=== PATIENT | male | born 1935 | race Caucasian/White ===

== ENCOUNTER 2016-08-20 13:57 | Emergency (ER) | payer MEDICARE, BC ==
[2016-08-20] MEDS ORDERED: Clindamycin CAP* 150 MG PO ONE (15:23)
[2016-08-20 16:36] VITALS: BP 138/78
--- NOTE | 2016-08-20 17:28 | ED ---
Vinnie Nazario Auryana, scribed for Noel Mcdonnell MD on 08/20/16 at 1430 . Skin Complaint - HPI Summary HPI Summary: 81 year old male comes to the ED with a back abscess. Patient currently lives at [facility]- per nurse and [facility] staff-patient has a known skin tear on the left forearm that has been dressed. He is currently on Xarelto. PMHx is significant for dementia. - History of Current Complaint Chief Complaint: EDRashSkinAbscess Time Seen by Provider: 08/20/16 14:12 Stated Complaint: ABSCESS LEFT UPPER BACK , ARM INJURY Hx Obtained From: EMS, Medical Records Hx From Patient Unobtainable Due To: Dementia Onset/Duration: Still Present - unknown start date Pain Intensity: 0 Pain Scale Used: 0-10 Numeric Skin Location: Discrete - over left scapula Character: Redness - Allergy/Home Medications Allergies/Adverse Reactions: Allergies Allergy/AdvReac Type Severity Reaction Status Date / Time No Known Allergies Allergy Verified 08/20/16 13:59 Home Medications: Home Medications Rivaroxaban TAB(*) [Xarelto 15 mg(*)] 15 mg PO DAILY 08/20/16 [History Confirmed 08/20/16] PMH/Surg Hx/FS Hx/Imm Hx Endocrine/Hematology History: Reports: Hx Anticoagulant Therapy Denies: Hx Diabetes, Hx Thyroid Disease Cardiovascular History: Reports: Hx Hypertension Denies: Hx Pacemaker/ICD Respiratory History: Denies: Hx Asthma, Hx Chronic Obstructive Pulmonary Disease (COPD), Hx Lung Cancer GI History: Reports: Other GI Disorders - HX BOWEL RESECTION Denies: Hx Gall Bladder Disease, Hx Gastrointestinal Bleed, Hx Ulcer, Hx Urosepsis History: Reports: Hx Benign Prostatic Hyperplasia Denies: Hx Kidney Stones, Hx Renal Disease Sensory History: Denies: Hx Hearing Aid Neurological History: 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 APPENDICITIS/APPENDECTOMY - Immunization History Date of Tetanus Vaccine: 2011 Infectious Disease History: Denies: Hx Hepatitis, Hx Human Immunodeficiency Virus (HIV), Traveled Outside the [place] in Last 30 Days - Family History Known Family History: Positive: Other - Dementia - Social History Occupation: Retired [facility] Alcohol Use: None Hx Substance Use: No Substance Use Type: Reports: None Hx Tobacco Use: Yes Smoking Status (MU): Former Smoker Review of Systems - ROS Summary Review of Systems Summary: patient has dementia - unable to get complete ROS Negative: Chest Pain Negative: Shortness Of Breath Positive: Other - back abscess, skin tear All Other Systems Reviewed And Are Negative: No Physical Exam - Summary Physical Exam Summary: The patient is well-nourished in no acute distress and in no acute pain. The skin is warm and dry and skin color reflects adequate perfusion. Abscess over the left scapula- [id number], fluctuant with erythema and warmth. Left forearm skin tear. HEENT: The head is normocephalic and atraumatic. The pupils are equal and reactive. The conjunctivae are clear and without drainage. Nares are patent and without drainage. Patient not cooperative to look in mouth. The external ears are intact. The ear canals are patent and without drainage. The tympanic membranes are intact. Neck is supple with full range of motion and non-tender. There are no carotid bruits. There is no neck vein distension. Respiratory: Chest is non-tender. Not cooperative to listen to lungs. Cardiovascular: Hear is regular rate and rhythm. There is no murmur or rub auscultated. There is no peripheral edema and pulses are symmetrical and equal. Abdomen: The abdomen is soft and non-tender. There are normal bowel sounds heard in all four quadrants and there is no organomegaly palpated. Musculoskeletal: There is no back pain noted. Extremities are non-tender with full range of motion. There is good capillary refill. There is no peripheral edema or calf tenderness elicited. Neurological: Patient is alert and oriented to person, place and time. The patient has symmetrical motor strength in all four extremities. Cranial nerves are grossly intact. Deep tendon reflexes are symmetrical and equal in all four extremities. Psychiatric: The patient has an appropriate affect and does not exhibit any anxiety or depression. Triage Information Reviewed: Yes Vital Signs On Initial Exam: Initial Vitals Temp Pulse Resp BP Pulse Ox 98.3 F 97 20 117/58 97 08/20/16 13:59 08/20/16 13:59 08/20/16 13:59 08/20/16 13:59 08/20/16 13:59 Vital Signs Reviewed: Yes Procedures - Procedure Summary Procedure Summary: 2 cm incision vertical over abscess 45 cc purulent debris removed wound irrigated with 300 cc nml saline iodiform gauze- inch; dressing placed and cultures sent - Incision and Drainage Site: left scapula Anesthesia: Lidocaine - 2% wiht Epi - 7cc- , Other - betadine prep Instrument(s): Needle Packing: Gauze - iodoform- 1/2 inch Diagnostics - Vital Signs Vital Signs Temp Pulse Resp BP Pulse Ox 08/20/16 13:59 98.3 F 97 20 117/58 97 - Laboratory Lab Statement: Any lab studies that have been ordered have been reviewed, and results considered in the medical decision making process. Re-Evaluation - Re-Evaluation first Re-Evaluation Time: 14:43 - discussed need to I&D Change: Unchanged Comment: patient agrees to procedure. Course/Dx - Course Assessment/Plan: 81 y/o male comes from [facility] with a left scapula abscess. Site is erythematic, fluctuant, and warm. Patient also had a dressed left forearm skin tear- placed by [facility]. I&D of infected left scapula abscess. 2cm incision with gauze packing, cultures sent and dressing in place. Appears infected - given dose of Clindamycin in ED. Discharged to [facility] on clindamycin. - Differential Diagnoses - Skin Complaint Differential Diagnoses: Abscess, Cellulitis, Other - infected sebaceous cyst - Diagnoses Provider Diagnoses: Infected sebaceous cyst of skin, Encounter for incision and drainage procedure - Physician Notifications Discussed Care Of Patient With: Discussed patient with , Sahra Mcknight (14: 38). number: [phone] Time Discussed With Above Provider: 14:38 - given permission to open infected cyst- stated that patient has had this for a long time but now infected. Discharge - Discharge Plan Condition: Stable Disposition: [facility] Discharge Disposition Comment: keep dressing in place for 24 hours and remove after. clinamycin 300mg x3 Prescriptions: Clindamycin Cap(NF) [Cleocin 300 mg Cap(NF)] 300 mg PO TID #21 cap Patient Education Materials: Abscess (ED), Clindamycin (By mouth) Additional Instructions: [facility]. The documentation as recorded by the Vinnie vela Auryana accurately reflects the service I personally performed and the decisions made by , Noel Mcdonnell MD.
== END 2016-08-20 16:35 ==
LOC: ED 13:57
DX: L72.9 Follicular cyst of the skin and subcutaneous tissue, unspecified (principal)
CPT/HCPCS: 87070; 87076; 87205; 87640; 87641; 99282; A9270-GY

== ENCOUNTER 2016-11-12 17:14 | Emergency (ER) | payer MEDICARE, BC ==
[2016-11-12 18:20] LABS: Hematocrit 42 % (42-52); Hemoglobin 13.9 g/dl (14.0-18.0); Mean Corpuscular HGB Conc 33 g/dl (31-36); Mean Corpuscular Hemoglobin 33 pg (27-31); Mean Corpuscular Volume 98 fL (80-94); Mean Platelet Volume 8 um3 (7.4-10.4); Red Blood Count 4.27 10^6/ul (4.0-5.4); Red Cell Distribution Width 13 % (10.5-15); White Blood Count 9.5 10^3/ul (3.5-10.8)
--- NOTE | 2016-11-12 18:28 | RAD ---
Indication: Fever. Atrial fibrillation. Comparison: January 15, 2015 Technique: Upright AP 1816 hours Report: Clear lungs and pleural spaces. Negative for pneumothorax. Mild cardiomegaly. Unremarkable central pulmonary vasculature. Mildly tortuous thoracic aorta. Advanced arthropathy of the shoulders. IMPRESSION: Mild cardiomegaly without evidence for pulmonary edema. Based on correlation with the previous exam there is probable chronic obstructive pulmonary disease and emphysema. No evidence for pneumonia.
[2016-11-12 18:35] LABS: Albumin 3.3 g/dL (3.2-5.2); BUN/Creatinine Ratio 14.3 (8-20); EGFR African American 75.3 (>60); EGFR Non-African American 58.5 (>60); Globulin 3.7 g/dL (2-4); Potassium 3.7 mmol/L (3.5-5.0); Total Bilirubin 0.5 mg/dL (0.2-1.0); Troponin I 0.01 ng/mL (<0.04)
[2016-11-12 18:40] LABS: Urine Bacteria Absent (Absent); Urine Bilirubin Negative (Negative); Urine Glucose Negative (Negative); Urine Nitrite Negative (Negative)
[2016-11-12] MEDS ORDERED: NS 0.9% 1000 ML* 2,400 ML IV ONE (18:40)
--- NOTE | 2016-11-12 20:04 | ED ---
I, Oh,Soohyun, scribed for Melba Triplett MD on 11/12/16 at 1816 . Altered Mental Status - HPI Summary HPI Summary: LEVEL 5 CAVEAT secondary to dementia. DNR code. This 81 y/o male presents to ED from [facility] for AMS and increased lethargic today. PMHx includes afib, Alzheimer's dz, and HTN. Pt is noted largely immobile while getting to ED bed. Pt is noted with smell of urine at time of initial evaluation. He appears alert but disoriented when asked questions regarding place. - History Of Current Complaint Chief Complaint: EDAltMentalStatus Stated Complaint: A FIB Time Seen by Provider: 11/12/16 17:33 Hx Obtained From: Patient, Medical Records Hx From Patient Unobtainable Due To: Dementia Timing: Constant Character: Lethargy Aggravating Factor(s): Nothing Alleviating Factor(s): Nothing Associated Signs And Symptoms: Negative: Fever - Allergies/Home Medications Allergies/Adverse Reactions: Allergies Allergy/AdvReac Type Severity Reaction Status Date / Time No Known Allergies Allergy Verified 11/12/16 17:19 Home Medications: Home Medications Acetaminophen [Tylenol 8 Hour Arthritis] 650 mg PO QAM 11/12/16 [History Confirmed 11/12/16] FLUoxetine CAP* [PROzac CAP*] 20 mg PO QAM 11/12/16 [History Confirmed 11/12/16] Metoprolol Tartrate TAB* [Lopressor TAB*] 25 mg PO 0900,2100 11/12/16 [History Confirmed 11/12/16] Risperidone 0.25 mg PO BID 11/12/16 [History Confirmed 11/12/16] Rivastigmine PATCH 4.6 MG(NF) [Exelon(NF)] 4.6 mg TOPICAL QAM 11/12/16 [History Confirmed 11/12/16] PMH/Surg Hx/FS Hx/Imm Hx Endocrine/Hematology History: Reports: Hx Anticoagulant Therapy Denies: Hx Diabetes, Hx Thyroid Disease Cardiovascular History: Reports: Hx Hypertension Denies: Hx Pacemaker/ICD Respiratory History: Denies: Hx Asthma, Hx Chronic Obstructive Pulmonary Disease (COPD), Hx Lung Cancer GI History: Reports: Other GI Disorders - HX BOWEL RESECTION Denies: Hx Gall Bladder Disease, Hx Gastrointestinal Bleed, Hx Ulcer, Hx Urosepsis History: Reports: Hx Benign Prostatic Hyperplasia Denies: Hx Kidney Stones, Hx Renal Disease Sensory History: Denies: Hx Hearing Aid Neurological History: 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 APPENDICITIS/APPENDECTOMY - Immunization History Date of Tetanus Vaccine: 2011 Infectious Disease History: No Infectious Disease History: Denies: Hx Hepatitis, Hx Human Immunodeficiency Virus (HIV), Traveled Outside the [place] in Last 30 Days - Family History Known Family History: Positive: Other - Dementia - Social History Alcohol Use: None Hx Substance Use: No Substance Use Type: Reports: None Hx Tobacco Use: Yes Smoking Status (MU): Former Smoker Review of Systems - ROS Summary Review of Systems Summary: LEVEL 5 CAVEAT secondary to dementia and AMS Negative: Fever Positive: other - smell of urine All Other Systems Reviewed And Are Negative: No Physical Exam Triage Information Reviewed: Yes Vital Signs On Initial Exam: Initial Vitals Temp Pulse Resp BP Pulse Ox 99.2 F 61 15 145/104 98 11/12/16 17:17 11/12/16 17:17 11/12/16 17:17 11/12/16 17:17 11/12/16 17:17 Vital Signs Reviewed: Yes Appearance: Positive: Well-Appearing, No Pain Distress Skin: Positive: Warm, Skin Color Reflects Adequate Perfusion, Dry Eyes: Positive: EOMI, BRIGIDA Neck: Positive: Supple, Nontender Respiratory/Lung Sounds: Positive: Clear to Auscultation, Breath Sounds Present Cardiovascular: Positive: RRR, Pulses are Symmetrical in both Upper and Lower Extremities Abdomen Description: Positive: Nontender, Soft Musculoskeletal: Positive: Strength/ROM Intact Neurological: Positive: Cerebellar Dysfunction - place, Disoriented AVPU Assessment: Alert Diagnostics - Vital Signs Vital Signs Temp Pulse Resp BP Pulse Ox 11/12/16 17:17 99.2 F 61 15 145/104 98 - Laboratory Lab Results: Lab Results 11/12/16 11/12/16 11/12/16 Range/Units 17:53 17:53 17:53 WBC 9.5 (3.5-10.8) 10^3/ul RBC 4.27 (4.0-5.4) 10^6/ul Hgb 13.9 L (14.0-18.0) g/dl Hct 42 (42-52) % MCV 98 H (80-94) fL MCH 33 H (27-31) pg MCHC 33 (31-36) g/dl RDW 13 (10.5-15) % Plt Count 330 (150-450) 10^3/ul MPV 8 (7.4-10.4) um3 Neut % (Auto) 71.9 (38-83) % Lymph % (Auto) 12.7 L (25-47) % Mesa % (Auto) 13.1 H (1-9) % Eos % (Auto) 1.6 (0-6) % Baso % (Auto) 0.7 (0-2) % Absolute Neuts (auto) 6.8 (1.5-7.7) 10^3/ul Absolute Lymphs (auto) 1.2 (1.0-4.8) 10^3/ul Absolute Monos (auto) 1.2 H (0-0.8) 10^3/ul Absolute Eos (auto) 0.1 (0-0.6) 10^3/ul Absolute Basos (auto) 0.1 (0-0.2) 10^3/ul Absolute Nucleated RBC 0 10^3/ul Nucleated RBC % 0 INR (Anticoag Therapy) 1.22 H (0.89-1.11) APTT 30.4 (26.0-36.3) seconds Sodium 136 (133-145) mmol/L Potassium 3.7 (3.5-5.0) mmol/L Chloride 102 (101-111) mmol/L Carbon Dioxide 30 (22-32) mmol/L Anion Gap 4 (2-11) mmol/L BUN 17 (6-24) mg/dL Creatinine 1.19 H (0.67-1.17) mg/dL Est GFR ( Amer) 75.3 (>60) Est GFR (Non-Af Amer) 58.5 (>60) BUN/Creatinine Ratio 14.3 (8-20) Glucose 132 H (70-100) mg/dL Lactic Acid (0.5-2.0) mmol/L Calcium 9.0 (8.6-10.3) mg/dL Total Bilirubin 0.50 (0.2-1.0) mg/dL AST 15 (13-39) U/L ALT 13 (7-52) U/L Alkaline Phosphatase 45 (34-104) U/L Troponin I 0.01 (<0.04) ng/mL Total Protein 7.0 (6.4-8.9) g/dL Albumin 3.3 (3.2-5.2) g/dL Globulin 3.7 (2-4) g/dL Albumin/Globulin Ratio 0.9 L (1-3) Urine Color Urine Appearance Urine pH (5-9) Ur Specific [place] (1.010-1.030) Urine Protein (Negative) Urine Ketones (Negative) Urine Blood (Negative) Urine Nitrate (Negative) Urine Bilirubin (Negative) Urine Urobilinogen (Negative) Ur Leukocyte Esterase (Negative) Urine WBC (Auto) (Absent) Urine RBC (Auto) (Absent) Ur Squamous Epith Cells (Absent) Urine Bacteria (Absent) Hyaline Casts (Absent) Urine Glucose (Negative) 11/12/16 11/12/16 Range/Units 17:53 18:25 WBC (3.5-10.8) 10^3/ul RBC (4.0-5.4) 10^6/ul Hgb (14.0-18.0) g/dl Hct (42-52) % MCV (80-94) fL MCH (27-31) pg MCHC (31-36) g/dl RDW (10.5-15) % Plt Count (150-450) 10^3/ul MPV (7.4-10.4) um3 Neut % (Auto) (38-83) % Lymph % (Auto) (25-47) % Mes[place] % (Auto) (1-9) % Eos % (Auto) (0-6) % Baso % (Auto) (0-2) % Absolute Neuts (auto) (1.5-7.7) 10^3/ul Absolute Lymphs (auto) (1.0-4.8) 10^3/ul Absolute Monos (auto) (0-0.8) 10^3/ul Absolute Eos (auto) (0-0.6) 10^3/ul Absolute Basos (auto) (0-0.2) 10^3/ul Absolute Nucleated RBC 10^3/ul Nucleated RBC % INR (Anticoag Therapy) (0.89-1.11) APTT (26.0-36.3) seconds Sodium (133-145) mmol/L Potassium (3.5-5.0) mmol/L Chloride (101-111) mmol/L Carbon Dioxide (22-32) mmol/L Anion Gap (2-11) mmol/L BUN (6-24) mg/dL Creatinine (0.67-1.17) mg/dL Est GFR ( Amer) (>60) Est GFR (Non-Af Amer) (>60) BUN/Creatinine Ratio (8-20) Glucose (70-100) mg/dL Lactic Acid 1.4 (0.5-2.0) mmol/L Calcium (8.6-10.3) mg/dL Total Bilirubin (0.2-1.0) mg/dL AST (13-39) U/L ALT (7-52) U/L Alkaline Phosphatase (34-104) U/L Troponin I (<0.04) ng/mL Total Protein (6.4-8.9) g/dL Albumin (3.2-5.2) g/dL Globulin (2-4) g/dL Albumin/Globulin Ratio (1-3) Urine Color Yellow Urine Appearance Clear Urine pH 6.0 (5-9) Ur Specific [place] 1.025 (1.010-1.030) Urine Protein Negative (Negative) Urine Ketones Trace H (Negative) Urine Blood Negative (Negative) Urine Nitrate Negative (Negative) Urine Bilirubin Negative (Negative) Urine Urobilinogen Negative (Negative) Ur Leukocyte Esterase Trace H (Negative) Urine WBC (Auto) Trace(0-5/hpf) (Absent) Urine RBC (Auto) Absent (Absent) Ur Squamous Epith Cells Present H (Absent) Urine Bacteria Absent (Absent) Hyaline Casts Present H (Absent) Urine Glucose Negative (Negative) Result Diagrams: 11/12/16 17:53 11/12/16 17:53 Lab Statement: Any lab studies that have been ordered have been reviewed, and results considered in the medical decision making process. - Radiology CXR Xray Interpretation: Positive (See Comments) - Mild cardiomegaly without evidence for pulmonary edema. Based on correlation with the previous exam there is probable chronic obstructive pulmonary disease and emphysema. No evidence for pneumonia. Radiology Interpretation Completed By: Radiologist - EKG 1950 EKG Rhythm: Atrial Fibrillation Altered Mental Statu Course/Dx - Course Course Of Treatment: 81 yo male recently transferred to a new residential with altered mental status, nurse did talk with who felt that this was a norm for him and that at times he can agitated as well. It was initially thought he might be septic, but his heart rate normalized and labs ,cxr and urine were all neg - Diagnoses Discharge Diagnoses: Altered mental status - Provider Notifications Discussed Care Of Patient With: Mohan Naylor Time Discussed With Above Provider: 19:32 - Critical Care Time Critical Care Time: 30-74 min - 30 minutes Discharge - Discharge Plan Condition: Stable Disposition: HOME Patient Education Materials: Altered Mental Status (ED) Referrals: Kayleigh Pollack MD [Primary Care Provider] - 2 Days The documentation as recorded by the Peter vela Soohyun accurately reflects the service I personally performed and the decisions made by me, Melba Triplett MD.
[2016-11-12 21:43] VITALS: BP 130/92
== END 2016-11-12 21:43 | disposition home or self-care (01) ==
LOC: ED 17:14
DX: R41.82 Altered mental status, unspecified (principal); I10 Essential (primary) hypertension; F03.90 Unspecified dementia, unspecified severity, without behavioral disturbance, psychotic disturbance, mood disturbance, and anxiety; Z79.01 Long term (current) use of anticoagulants; Z87.891 Personal history of nicotine dependence; G30.9 Alzheimer's disease, unspecified; F02.80 Dementia in other diseases classified elsewhere, unspecified severity, without behavioral disturbance, psychotic disturbance, mood disturbance, and anxiety; I51.7 Cardiomegaly; I48.91 Unspecified atrial fibrillation
CPT/HCPCS: 36415; 71010; 80053; 81003; 81015; 83605; 84484; 85025; 85610; 85730; 87040; 87086; 93005; 99285

== ENCOUNTER 2017-09-06 11:46 | Inpatient (IN) | payer MEDICARE, BC ==
[2017-09-06] MEDS ORDERED: NS 0.9% 1000 ML* 1,000 ML IV ONE (12:07)
[2017-09-06] MEDS ORDERED: NS 0.9% 500 ML* 500 ML IV ONE (12:07)
[2017-09-06] MEDS ORDERED: cefTRIAXone(*) 1 GM in NS 0.9% 50 ML* 50 ML IVPB ONE (12:08)
[2017-09-06 12:55] LABS: Urine Appearance Clear; Urine Blood Negative (Negative); Urine Color Amber; Urine Ketones Negative (Negative); Urine Protein 1+(30 mg/dL) (Negative); Urine Specific Gravity 1.027 (1.010-1.030); Urine Urobilinogen Negative (Negative)
[2017-09-06 13:00] LABS: Hematocrit 42 % (42-52); Hemoglobin 14.2 g/dl (14.0-18.0); Mean Corpuscular HGB Conc 34 g/dl (31-36); Mean Corpuscular Hemoglobin 33 pg (27-31); Mean Corpuscular Volume 98 fL (80-94); Platelet Count 220 10^3/ul (150-450); Red Cell Distribution Width 14 % (10.5-15); White Blood Count 20.7 10^3/ul (3.5-10.8)
--- NOTE | 2017-09-06 13:02 | RAD ---
HISTORY: Altered mental status COMPARISONS: June 08, 2014 TECHNIQUE: Multiple contiguous axial CT scans were obtained of the head without intravenous contrast. FINDINGS: HEMORRHAGE/INFARCT: There is no hemorrhage or acute infarct. MASSES/SHIFT: There is no mass or shift. EXTRA-AXIAL SPACES: There are no extra-axial fluid collections. SULCI AND VENTRICLES: The sulci and ventricles are normal in size and position for the patient's stated age. CEREBRUM: There is hypoattenuation of the periventricular and subcortical white matter. BRAINSTEM: There are no focal parenchymal abnormalities. CEREBELLUM: There are no focal parenchymal abnormalities. VESSELS: The vessels are grossly normal. PARANASAL SINUSES: There is mucosal thickening of the maxillary sinuses bilaterally. ORBITS: The orbits are unremarkable. BONES AND SOFT TISSUE: No bone or soft tissue abnormalities are noted. OTHER: None IMPRESSION: NO ACUTE INTRACRANIAL PATHOLOGY. CHRONIC SMALL VESSEL ISCHEMIC CHANGE.
[2017-09-06 13:17] LABS: EGFR Non-African American 52.3 (>60)
[2017-09-06 13:22] LABS: INR 1.55 (0.77-1.02)
--- NOTE | 2017-09-06 13:53 | RAD ---
HISTORY: Altered mental status COMPARISONS: November 12, 2016 VIEWS: 1: frontal portable view of the chest at 1:20 PM FINDINGS: LINES AND TUBES: None. CARDIOMEDIASTINAL SILHOUETTE: The cardiomediastinal silhouette is stable. PLEURA: The costophrenic angles are sharp. No pleural abnormalities are noted. LUNG PARENCHYMA: The lungs are clear. ABDOMEN: The upper abdomen is clear. There is no subphrenic gas. BONES AND SOFT TISSUES: Degenerative changes noted of the shoulders and spine IMPRESSION: NO ACTIVE CARDIOPULMONARY DISEASE.
[2017-09-06 14:24] LABS: Monocytes % 7 % (0-7)
--- NOTE | 2017-09-06 14:41 | ED ---
Doug Nazario Natalie, scribed for Mark Anthony Aparicio MD on 09/06/17 at 1354 . Altered Mental Status - HPI Summary HPI Summary: The patient is an 82 y/o M presenting to the ED from [facility] c/o lethargy and inability to walk starting this morning, per [facility] staff. Usually the pt is able to ambulate independently, but he has been more lethargic, unable to walk, and hypotensive. He has hx of Alzheimer's and UTIs. Pt additionally c/o pain in the epigastrium region. - History Of Current Complaint Chief Complaint: EDAltMentalStatus Stated Complaint: AMS Hx Obtained From: Patient Onset/Duration: Still Present Timing: Constant Severity Initially: Moderate Severity Currently: Moderate Character: Lethargy Aggravating Factor(s): Unknown Alleviating Factor(s): Unknown - Allergies/Home Medications Allergies/Adverse Reactions: Allergies Allergy/AdvReac Type Severity Reaction Status Date / Time No Known Allergies Allergy Verified 11/12/16 17:19 Home Medications: Home Medications Acetaminophen [Tylenol 8 Hour] 650 mg PO QAM 09/06/17 [History Confirmed ] Cyanocobalamin TAB* [Vitamin B12 TAB*] 1,000 mcg PO DAILY 09/06/17 [History Confirmed 09/06/17] Donepezil TAB* [Aricept 5 MG TAB*] 10 mg PO DAILY 09/06/17 [History Confirmed ] risperiDONE TAB* [RisperDAL*] 0.25 mg PO QAM 09/06/17 [History Confirmed ] risperiDONE TAB* [RisperDAL*] 0.5 mg PO QPM 09/06/17 [History Confirmed 09/06/17 ] PMH/Surg Hx/FS Hx/Imm Hx Endocrine/Hematology History: Reports: Hx Anticoagulant Therapy Denies: Hx Diabetes, Hx Thyroid Disease Cardiovascular History: Reports: Hx Hypertension Denies: Hx Pacemaker/ICD Respiratory History: Denies: Hx Asthma, Hx Chronic Obstructive Pulmonary Disease (COPD), Hx Lung Cancer GI History: Reports: Other GI Disorders - HX BOWEL RESECTION Denies: Hx Gall Bladder Disease, Hx Gastrointestinal Bleed, Hx Ulcer, Hx Urosepsis History: Reports: Hx Benign Prostatic Hyperplasia Denies: Hx Kidney Stones, Hx Renal Disease Sensory History: Denies: Hx Hearing Aid Neurological History: Reports: Hx Dementia - ALZHEIMERS Denies: Hx Migraine, Hx Seizures, Hx Transient Ischemic Attacks (TIA) Psychiatric History: Denies: Hx Anxiety, Hx Depression, Hx Panic Disorder, Hx Schizophrenia, Hx Bipolar Disorder - Surgical History Surgery Procedure, Year, and Place: abd surgery - OBSTRUCTION IN BOWEL RESECTION - 3 years ago [facility] (non cancer). APPENDICITIS/APPENDECTOMY - Immunization History Date of Tetanus Vaccine: 2011 Infectious Disease History: Unable to Obtain/Confirm Infectious Disease History: Denies: Hx Hepatitis, Hx Human Immunodeficiency Virus (HIV), Traveled Outside the [place] in Last 30 Days - Family History Known Family History: Positive: Other - Dementia Family History: NON CONTRIBUTORY - Social History Alcohol Use: None Hx Substance Use: No Substance Use Type: Reports: None Hx Tobacco Use: Yes Smoking Status (MU): Former Smoker Review of Systems Positive: Other - lethargic Positive: Other - hypotensive Neurological: Other - unable to walk All Other Systems Reviewed And Are Negative: Yes Physical Exam - Summary Physical Exam Summary: Appearance: Well-appearing, Well-nourished. Somnolent, able to answer yes or no questions, responsive but clear evidence of dementia with decreased verbal ability. Skin: Warm, dry Eyes: Normal ENT: Dry mucous membranes Neck: Supple, nontender Respiratory: Clear to auscultation Cardiovascular: Normal S1, S2. No murmurs. Normal distal pulses in tibial and radial bilaterally. Irregular to regular rhythm consistent with Afib Abdomen: Soft, mild tenderness to palpation in low abdominal region Musculoskeletal: Normal, Strength/ROM Intact Neurological: Normal, A&Ox3. Decreased verbal ability. Lying still, not following commands, no obvious evidence of facial asymmetry Psychiatric: Normal General: No acute distress Triage Information Reviewed: Yes Vital Signs On Initial Exam: Initial Vitals Temp Pulse Resp BP Pulse Ox 99.2 F 90 19 86/55 97 09/06/17 11:49 09/06/17 11:49 09/06/17 11:49 09/06/17 11:49 09/06/17 11:49 Vital Signs Reviewed: Yes Diagnostics - Vital Signs Vital Signs Temp Pulse Resp BP Pulse Ox 09/06/17 13:01 13 09/06/17 12:16 96 09/06/17 12:02 89 18 96/55 95 09/06/17 12:00 89 19 96 09/06/17 11:57 95 18 96 05/18/18 11:49 99.2 F 90 19 86/55 97 - Laboratory Lab Results: Lab Results 09/06/17 09/06/17 09/06/17 Range/Units 12:32 12:46 12:46 WBC 20.7 H (3.5-10.8) 10^3/ul RBC 4.30 (4.0-5.4) 10^6/ul Hgb 14.2 (14.0-18.0) g/dl Hct 42 (42-52) % MCV 98 H (80-94) fL MCH 33 H (27-31) pg MCHC 34 (31-36) g/dl RDW 14 (10.5-15) % Plt Count 220 (150-450) 10^3/ul MPV 8.0 (7.4-10.4) um3 Neut % (Auto) Not Reportable Lymph % (Auto) Not Reportable Barry % (Auto) Not Reportable Eos % (Auto) Not Reportable Baso % (Auto) Not Reportable Absolute Neuts (auto) Not Reportable Absolute Lymphs (auto) Not Reportable Absolute Monos (auto) Not Reportable Absolute Eos (auto) Not Reportable Absolute Basos (auto) Not Reportable Absolute Nucleated RBC Not Reportable Neutrophils % Pending Nucleated RBC % Not Reportable Normal RBC Morphology Pending INR (Anticoag Therapy) 1.55 H (0.77-1.02) APTT 34.4 (26.0-36.3) seconds Sodium (139-145) mmol/L Potassium (3.5-5.0) mmol/L Chloride (101-111) mmol/L Carbon Dioxide (22-32) mmol/L Anion Gap (2-11) mmol/L BUN (6-24) mg/dL Creatinine (0.67-1.17) mg/dL Est GFR ( Amer) (>60) Est GFR (Non-Af Amer) (>60) BUN/Creatinine Ratio (8-20) Glucose (70-100) mg/dL Lactic Acid (0.5-2.0) mmol/L Calcium (8.6-10.3) mg/dL Total Bilirubin (0.2-1.0) mg/dL AST (13-39) U/L ALT (7-52) U/L Alkaline Phosphatase (34-104) U/L Troponin I (<0.04) ng/mL Total Protein (6.4-8.9) g/dL Albumin (3.2-5.2) g/dL Globulin (2-4) g/dL Albumin/Globulin Ratio (1-3) Urine Color Debbi Urine Appearance Clear Urine pH 5.0 (5-9) Ur Specific [place] 1.027 (1.010-1.030) Urine Protein 1+(30 mg/dl) A (Negative) Urine Ketones Negative (Negative) Urine Blood Negative (Negative) Urine Nitrate Negative (Negative) Urine Bilirubin Negative (Negative) Urine Urobilinogen Negative (Negative) Ur Leukocyte Esterase 1+ A (Negative) Urine WBC (Auto) 2+(11-20/hpf) A (Absent) Urine RBC (Auto) 1+(3-5/hpf) A (Absent) Urine Bacteria Absent (Absent) Hyaline Casts Present A (Absent) Urine Glucose Negative (Negative) Blood Type Antibody Screen 09/06/17 09/06/17 09/06/17 Range/Units 12:46 12:46 12:46 WBC (3.5-10.8) 10^3/ul RBC (4.0-5.4) 10^6/ul Hgb (14.0-18.0) g/dl Hct (42-52) % MCV (80-94) fL MCH (27-31) pg MCHC (31-36) g/dl RDW (10.5-15) % Plt Count (150-450) 10^3/ul MPV (7.4-10.4) um3 Neut % (Auto) Lymph % (Auto) Barry % (Auto) Eos % (Auto) Baso % (Auto) Absolute Neuts (auto) Absolute Lymphs (auto) Absolute Monos (auto) Absolute Eos (auto) Absolute Basos (auto) Absolute Nucleated RBC Neutrophils % Nucleated RBC % Normal RBC Morphology INR (Anticoag Therapy) (0.77-1.02) APTT (26.0-36.3) seconds Sodium 137 L (139-145) mmol/L Potassium 4.4 (3.5-5.0) mmol/L Chloride 105 (101-111) mmol/L Carbon Dioxide 25 (22-32) mmol/L Anion Gap 7 (2-11) mmol/L BUN 31 H (6-24) mg/dL Creatinine 1.31 H (0.67-1.17) mg/dL Est GFR ( Amer) 67.2 (>60) Est GFR (Non-Af Amer) 52.3 (>60) BUN/Creatinine Ratio 23.7 H (8-20) Glucose 103 H (70-100) mg/dL Lactic Acid 1.5 (0.5-2.0) mmol/L Calcium 9.4 (8.6-10.3) mg/dL Total Bilirubin 1.10 H (0.2-1.0) mg/dL AST 19 (13-39) U/L ALT 14 (7-52) U/L Alkaline Phosphatase 59 (34-104) U/L Troponin I 0.01 (<0.04) ng/mL Total Protein 7.1 (6.4-8.9) g/dL Albumin 3.5 (3.2-5.2) g/dL Globulin 3.6 (2-4) g/dL Albumin/Globulin Ratio 1.0 (1-3) Urine Color Urine Appearance Urine pH (5-9) Ur Specific [place] (1.010-1.030) Urine Protein (Negative) Urine Ketones (Negative) Urine Blood (Negative) Urine Nitrate (Negative) Urine Bilirubin (Negative) Urine Urobilinogen (Negative) Ur Leukocyte Esterase (Negative) Urine WBC (Auto) (Absent) Urine RBC (Auto) (Absent) Urine Bacteria (Absent) Hyaline Casts (Absent) Urine Glucose (Negative) Blood Type A Positive Antibody Screen Pending Result Diagrams: 09/06/17 12:46 09/06/17 12:46 Lab Statement: Any lab studies that have been ordered have been reviewed, and results considered in the medical decision making process. - Radiology CXR Xray Interpretation: No Acute Changes - No obvious infiltrates, no cardiomegaly , no bloating abnormality. ED physician has reviewed this report. - CT Brain CT CT Interpretation: Positive (See Comments) - No acute intracranial pathology. Chronic small vessel ischemic change. ED physician has reviewed this report. CT Interpretation Completed By: Radiologist - EKG 12:11 Cardiac Rate: Other Rate - Atrial fibrillation EKG Rhythm: Atrial Fibrillation - 101 BPM EKG Interpretation: Low voltage. No acute ischemic ST changes. Altered Mental Statu Course/Dx - Course Assessment/Plan: Patient continues to appear somnolent, blood pressures improving with fluids and antibiotics. Admitted for further treatment for sepsis secondary to UTI. - Diagnoses Provider Diagnoses: Sepsis secondary to UTI - Provider Notifications Discussed Care Of Patient With: Rambo Treviño Discharge - Sign-Out/Discharge Documenting (check all that apply): Discharge/Admit/Transfer - Discharge Plan Condition: Stable Disposition: ADMITTED TO [facility] Referrals: Kayleigh Pollack MD [Primary Care Provider] - - Billing Disposition and Condition Condition: STABLE Disposition: [facility] The documentation as recorded by the Doug vela Natalie accurately reflects the service I personally performed and the decisions made by Alessandra osborne Dong, MD.
[2017-09-06] MEDS ORDERED: Carbamide Peroxide 6.5% OTIC* 15 ML BTL BOTH EARS ONE (15:03)
--- NOTE | 2017-09-06 15:49 | RAD ---
Indication: Right upper quadrant tenderness. Real-time sonography of the right upper quadrant was performed. The liver is normal in size. Size measuring up to 18 cm in length. No focal lesions or intrahepatic ductal dilatation is noted although evaluation is somewhat limited due to intercostal window. The gallbladder demonstrates no gallstones however it is suboptimally visualized. There is wall thickening measuring 7 mm with pericholecystic fluid or sonographic Henson's sign. I cannot exclude cholecystitis. Common duct measures up to 5 mm. The right kidney measures 9.8 x 4.2 x 3.9 cm. No hydronephrosis is noted. Evaluation of the pancreas is limited due to overlying gas. The proximal aorta and inferior vena cava are unremarkable. IMPRESSION: Mildly distended gallbladder with gallbladder wall thickening. Common duct is not dilated. Limited evaluation of the gallbladder with no obvious gallstones however. The study is limited. I cannot totally exclude cholecystitis as there is a small amount of pericholecystic fluid and the patient does have a sonographic Henson's sign.
[2017-09-06] MEDS: Rivaroxaban TAB(*) 15 MG PO SCH (18:29)
[2017-09-06] MEDS ORDERED: NS 0.9% 250 ML* 250 ML IV ONE (20:10)
--- NOTE | 2017-09-07 00:35 | HP ---
HISTORY AND PHYSICAL: DATE OF ADMISSION: 09/06/17 ADMITTING PROVIDER: Rambo Treviño MD PRIMARY CARE PHYSICIAN: Providers at [facility]. CHIEF COMPLAINT: Altered mental status, fevers, garbled speech, congestion, hypotensive. HISTORY OF PRESENT ILLNESS: Reilly Mcknight is an 82-year-old male with past medical history of Alzheimer's dementia with significant behavioral disturbance , improved on Risperdal, currently residing at [facility] in the Alzheimer's unit ; atrial fibrillation, on Xarelto; hypertension; BPH; history of urinary tract infections. He is notably a very poor historian. Most history provided by EMR and who is at bedside. Per [facility] transfer notes, the patient has had increased lethargy, garbled speech, and congested cough. He was noted to have a fever up to 101. In the emergency room, he had a white count of 20.7, he was hypotensive in the 80s systolically with leukocytosis of 20.7. He had a urinalysis showing 2+ white count, 1+ leukocyte esterase. He was started on ceftriaxone and given sepsis fluid bolus with improvement in blood pressures. He was referred to hospitalist service for altered mental status and sepsis suspected 2/2 to urinary tract infection. He had a CT head, which showed chronic small vessel ischemic changes, no acute process. His creatinine is elevated at 1.3 from prior 0.96 a month prior. He denies any pains anywhere. Unclear if he understands the questions sometimes. He does have some right upper quadrant tenderness on abdominal exam. PAST MEDICAL HISTORY: Atrial fibrillation, on Xarelto; dementia; Alzheimer's; hypertension; BPH; history of urinary tract infections. PAST SURGICAL HISTORY: Appendectomy, bowel resection. MEDICATIONS: Include: 1. Risperdal 0.25 mg p.o. q.a.m. and 0.5 mg p.o. q.p.m. 2. Xarelto 15 mg p.o. at 1700. 3. Metoprolol 25 mg p.o. b.i.d. 4. Finasteride 5 mg p.o. daily. 5. Prozac 20 mg p.o. q.a.m. 6. Donepezil 10 mg p.o. daily. 7. Cyanocobalamin 1000 mcg p.o. daily. 8. Acetaminophen 650 mg p.o. q.a.m. ALLERGIES: No known drug allergies. FAMILY HISTORY: Father of cancer unknown type; mother of old age, age 90. 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 He is a former smoker. Occasional beer previously, none currently. Medical surrogate is his , Sahra Mcknight. REVIEW OF SYSTEMS: Limited per the patient's dementia. He denies cough or shortness of breath. He is very hard of hearing. PHYSICAL EXAMINATION GENERAL APPEARANCE: Chronically ill appearing, looks his stated age. VITAL SIGNS: Temperature 99.2, 101 per EMS; heart rate in the 80s to 90s; blood pressure 86/55 initially, currently 105/66; respiratory rate is 13 to 19. HEENT: Normocephalic, atraumatic. Pupils are equal, round, and reactive to light. Extraocular motions intact. Cerumen impacted in the bilateral ears. NECK: Supple. No cervical lymphadenopathy. PULMONARY: Clear to auscultation, though limited inspiratory effort. CARDIOVASCULAR: Irregularly irregular. No murmurs, rubs, or gallops. ABDOMEN: Soft. Some tenderness in the right upper quadrant to palpation. No rebound or guarding. Nondistended. EXTREMITIES: Warm, well perfused. No peripheral edema. NEURO: Supervisor Shuttle Preparation strength 4/5 bilaterally. He does not follow commands well. No facial asymmetry. Full neurological exam not able to be obtained at this time. SKIN: No lesions. No rashes. LABORATORY DATA: White count 20.7, hemoglobin 14.2, hematocrit 42, platelets 220,000, neutrophils 84%. INR 1.55. Sodium 137, potassium 4.4, chloride 105, carbon dioxide 25, BUN 31, creatinine 1.31, glucose 103, lactic acid 1.5. Total bili 1.10, AST 19, ALT 14, alk phos 59. Troponin 0.01. Urinalysis: 1+ protein, 1+ leukocyte esterase, 2+ white count, 1+ rbc's, hyaline casts present. IMAGING: Brain CT noncontrast showed no acute process, but chronic small vessel ischemic changes. Chest x-ray demonstrated no active cardiopulmonary disease. EKG demonstrated atrial fibrillation, rate 101, no ST elevations or depressions. There are Q-waves inferiorly in III and aVF, left axis deviation. QTc is 447. The inferior Q-waves are not new. ASSESSMENT AND PLAN: Reilly Mcknight is an 82-year-old male with past medical history of atrial fibrillation, severe Alzheimer's dementia with behavioral disturbance, urinary tract infections, benign prostatic hypertrophy, presenting with altered mental status, fevers, hypotension, suspicious urinalysis, suspicion for sepsis secondary to urinary tract infection, also has some right upper quadrant tenderness to palpation, slightly elevated total bilirubin. I am going to get a right upper quadrant ultrasound to evaluate for any gallbladder pathology. He has been started on ceftriaxone in the emergency room , continue that daily. Follow up blood cultures, urine cultures. Status post sepsis bolus, pressures are improved. I am going to hold his metoprolol. He has acute kidney injury, creatinine 1.31 from 0.9. I am going to get a urine sodium, urine creatinine for FeNA. Does have elevated BUN to creatinine ratio of 23.7 which gives some evidence of prerenal disease. He is getting IV fluid bolus. He is a DNR/DNI. He can eat after he gets the ultrasound of his gallbladder. Do not have any cardiac echocardiogram in the EMR. He is being admitted to inpatient status. Get a CBC, BMP daily, magnesium above 2, potassium above 4. We will continue his donepezil, Proscar, Prozac, risperidone. His medical surrogate is his , Sahra Mcknight. [id number]/[facility] #: [id number] [facility] SYSTEMLaureano
[2017-09-07] MEDS ORDERED: Metoprolol Tartrate TAB* 25 MG PO ONE (01:57)
[2017-09-07 06:51] LABS: Hematocrit 37 % (42-52); Hemoglobin 12.4 g/dl (14.0-18.0); Mean Corpuscular HGB Conc 34 g/dl (31-36); Mean Corpuscular Hemoglobin 33 pg (27-31); Mean Corpuscular Volume 97 fL (80-94); Mean Platelet Volume 8.3 um3 (7.4-10.4); Platelet Count 215 10^3/ul (150-450); Red Blood Count 3.77 10^6/ul (4.0-5.4); Red Cell Distribution Width 14 % (10.5-15); White Blood Count 20.5 10^3/ul (3.5-10.8)
[2017-09-07 07:06] LABS: EGFR Non-African American 67.5 (>60)
[2017-09-07 07:48] LABS: ABS Basophils 0.1 10^3/ul (0-0.2); ABS Eosinophils 0 10^3/ul (0-0.6); ABS Lymphocytes 0.5 10^3/ul (1.0-4.8); ABS Monocytes 1.8 10^3/ul (0-0.8); ABS Neutrophils 18.1 10^3/ul (1.5-7.7); ABS Nucleated RBC 0 10^3/ul; Nucleated Red Blood Cells % 0
[2017-09-07] MEDS: Finasteride TAB* 5 MG PO SCH (09:24)
[2017-09-07] MEDS: Donepezil TAB* 5 MG PO SCH (09:25)
[2017-09-07] MEDS: Cyanocobalamin TAB* 500 MCG PO SCH (09:32)
[2017-09-07] MEDS: FLUoxetine CAP* 20 MG PO SCH (09:32)
--- NOTE | 2017-09-07 10:11 | PN ---
Subjective Date of Service: 09/07/17 Interval History: lethargic, garbled speech, does not follow commands, guarding and moaning with right upper quadrant palpation. positive henson's sign. No respiratory distress, occ moist cough Family History: Unchanged from Admission Social History: Unchanged from Admission Past Medical History: Unchanged from Admission Objective Active Medications: Cyanocobalamin (Vitamin B12 Tab*) 1,000 mcg PO DAILY COUNT INCLUDES [facility] Last Admin: 09/07/17 09:32 Dose: 1,000 mcg Donepezil HCl (Aricept Tab*) 10 mg PO DAILY COUNT INCLUDES [facility] Last Admin: 09/07/17 09:25 Dose: 10 mg Finasteride (Proscar Tab*) 5 mg PO DAILY COUNT INCLUDES [facility] Last Admin: 09/07/17 09:24 Dose: 5 mg Fluoxetine HCl (Prozac Cap*) 20 mg PO QAM COUNT INCLUDES [facility] Last Admin: 09/07/17 09:32 Dose: 20 mg Ceftriaxone Sodium 1 gm/ (Sodium Chloride) 50 mls @ 200 mls/hr IVPB Q24H COUNT INCLUDES [facility] Risperidone (Risperdal) 0.25 mg PO QAM COUNT INCLUDES [facility] Last Admin: 09/07/17 09:22 Dose: 0.25 mg Risperidone (Risperdal) 0.5 mg PO QPM COUNT INCLUDES [facility] Last Admin: 09/06/17 18:28 Dose: 0.5 mg Rivaroxaban (Xarelto(*)) 15 mg PO 1700 COUNT INCLUDES [facility] Last Admin: 09/06/17 18:29 Dose: 15 mg Vital Signs - 8 hr 09/07/17 09/07/17 09/07/17 03:43 06:30 09:09 Temperature 98.6 F 99.3 F Pulse Rate 109 99 Respiratory 24 24 Rate Blood Pressure 105/69 103/58 (mmHg) O2 Sat by Pulse 96 97 97 Oximetry 09/07/17 09:10 Temperature Pulse Rate Respiratory 22 Rate Blood Pressure (mmHg) O2 Sat by Pulse Oximetry Oxygen Devices in Use Now: None Appearance: frail ill appearing elderly male, confused, garbled speech Eyes: No Scleral Icterus Ears/Nose/Mouth/Throat: Clear Oropharnyx, Mucous Membranes Moist Neck: NL Appearance and Movements; NL JVP, Trachea Midline Respiratory: Symmetrical Chest Expansion and Respiratory Effort, - - dimnshed t/ o bilat , occ moist cough Cardiovascular: NL Sounds; No Murmurs; No JVD, No Edema Abdominal: - - NL sounds, NO distention, RUQ tenderness with palpation- patient moans and reaching to pull hand away, + henson's sign Extremities: No Clubbing, Cyanosis Skin: No Rash or Ulcers Neurological: - - confused at baseline, few garbled words, eyes open. unable to follow commands Nutrition: Taking PO's, - - small amounts Result Diagrams: 09/07/17 06:31 09/07/17 06:31 Additional Lab and Data: Lab Results 09/06/17 09/06/17 09/06/17 Range/Units 12:32 12:46 12:46 WBC 20.7 H (3.5-10.8) 10^3/ul RBC 4.30 (4.0-5.4) 10^6/ul Hgb 14.2 (14.0-18.0) g/dl Hct 42 (42-52) % MCV 98 H (80-94) fL MCH 33 H (27-31) pg MCHC 34 (31-36) g/dl RDW 14 (10.5-15) % Plt Count 220 (150-450) 10^3/ul MPV 8.0 (7.4-10.4) um3 Neut % (Auto) Not Reportable Lymph % (Auto) Not Reportable [place] % (Auto) Not Reportable Eos % (Auto) Not Reportable Baso % (Auto) Not Reportable Absolute Neuts (auto) Not Reportable Absolute Lymphs (auto) Not Reportable Absolute Monos (auto) Not Reportable Absolute Eos (auto) Not Reportable Absolute Basos (auto) Not Reportable Absolute Nucleated RBC Not Reportable Neutrophils % Pending Nucleated RBC % Not Reportable Normal RBC Morphology Pending INR (Anticoag Therapy) 1.55 H (0.77-1.02) APTT 34.4 (26.0-36.3) seconds Sodium (139-145) mmol/L Potassium (3.5-5.0) mmol/L Chloride (101-111) mmol/L Carbon Dioxide (22-32) mmol/L Anion Gap (2-11) mmol/L BUN (6-24) mg/dL Creatinine (0.67-1.17) mg/dL Est GFR ( Amer) (>60) Est GFR (Non-Af Amer) (>60) BUN/Creatinine Ratio (8-20) Glucose (70-100) mg/dL Lactic Acid (0.5-2.0) mmol/L Calcium (8.6-10.3) mg/dL Total Bilirubin (0.2-1.0) mg/dL AST (13-39) U/L ALT (7-52) U/L Alkaline Phosphatase (34-104) U/L Troponin I (<0.04) ng/mL Total Protein (6.4-8.9) g/dL Albumin (3.2-5.2) g/dL Globulin (2-4) g/dL Albumin/Globulin Ratio (1-3) Urine Color Debbi Urine Appearance Clear Urine pH 5.0 (5-9) Ur Specific [place] 1.027 (1.010-1.030) Urine Protein 1+(30 mg/dl) A (Negative) Urine Ketones Negative (Negative) Urine Blood Negative (Negative) Urine Nitrate Negative (Negative) Urine Bilirubin Negative (Negative) Urine Urobilinogen Negative (Negative) Ur Leukocyte Esterase 1+ A (Negative) Urine WBC (Auto) 2+(11-20/hpf) A (Absent) Urine RBC (Auto) 1+(3-5/hpf) A (Absent) Urine Bacteria Absent (Absent) Hyaline Casts Present A (Absent) Urine Glucose Negative (Negative) Blood Type Antibody Screen 09/06/17 09/06/17 09/06/17 Range/Units 12:46 12:46 12:46 WBC (3.5-10.8) 10^3/ul RBC (4.0-5.4) 10^6/ul Hgb (14.0-18.0) g/dl Hct (42-52) % MCV (80-94) fL MCH (27-31) pg MCHC (31-36) g/dl RDW (10.5-15) % Plt Count (150-450) 10^3/ul MPV (7.4-10.4) um3 Neut % (Auto) Lymph % (Auto) [place] % (Auto) Eos % (Auto) Baso % (Auto) Absolute Neuts (auto) Absolute Lymphs (auto) Absolute Monos (auto) Absolute Eos (auto) Absolute Basos (auto) Absolute Nucleated RBC Neutrophils % Nucleated RBC % Normal RBC Morphology INR (Anticoag Therapy) (0.77-1.02) APTT (26.0-36.3) seconds Sodium 137 L (139-145) mmol/L Potassium 4.4 (3.5-5.0) mmol/L Chloride 105 (101-111) mmol/L Carbon Dioxide 25 (22-32) mmol/L Anion Gap 7 (2-11) mmol/L BUN 31 H (6-24) mg/dL Creatinine 1.31 H (0.67-1.17) mg/dL Est GFR ( Amer) 67.2 (>60) Est GFR (Non-Af Amer) 52.3 (>60) BUN/Creatinine Ratio 23.7 H (8-20) Glucose 103 H (70-100) mg/dL Lactic Acid 1.5 (0.5-2.0) mmol/L Calcium 9.4 (8.6-10.3) mg/dL Total Bilirubin 1.10 H (0.2-1.0) mg/dL AST 19 (13-39) U/L ALT 14 (7-52) U/L Alkaline Phosphatase 59 (34-104) U/L Troponin I 0.01 (<0.04) ng/mL Total Protein 7.1 (6.4-8.9) g/dL Albumin 3.5 (3.2-5.2) g/dL Globulin 3.6 (2-4) g/dL Albumin/Globulin Ratio 1.0 (1-3) Urine Color Urine Appearance Urine pH (5-9) Ur Specific [place] (1.010-1.030) Urine Protein (Negative) Urine Ketones (Negative) Urine Blood (Negative) Urine Nitrate (Negative) Urine Bilirubin (Negative) Urine Urobilinogen (Negative) Ur Leukocyte Esterase (Negative) Urine WBC (Auto) (Absent) Urine RBC (Auto) (Absent) Urine Bacteria (Absent) Hyaline Casts (Absent) Urine Glucose (Negative) Blood Type A Positive Antibody Screen Pending Assess/Plan/Problems-Billing Assessment: Mr. Mcknight is an 82 y.o male with a past medical history of afib, dementia, htn, and BPH who was brought to the emergency for further evaluation of cough, congestion and lethargy. Patient was found to have a 20.7 WBC's and urine suspicious for UTI, he also has some moderate RUQ tenderness to palpation - Patient Problems (1) Leukocytosis Current Visit: Yes Status: Acute Code(s): D72.829 - ELEVATED WHITE BLOOD CELL COUNT, UNSPECIFIED SNOMED Code(s): 650059044 Comment: Admitted with fever reported of 101 at [facility] WBc's 20.7 on admission and no marked improvement today 20.5 afebrile Will continue antibiotics - will change ceftriaxone to zosyn will repeat lactic acid- will monitor- CBC suspect this could be related to cholecystitis given his significant RUQ abd pain, patient moaned and attempted to pull away this examiner hand when palpating the RUQ- + henson's poss. UTI remains within the differential (2) Right upper quadrant abdominal pain Current Visit: Yes Status: Acute Code(s): R10.11 - RIGHT UPPER QUADRANT PAIN SNOMED Code(s): 096244923 Comment: - Surgery consulted - Dr. Ca - would like a HIDA scan- ordered unavailable today- recommended continuing with antibiotics at this time - Gallbladder ultrasound - gallbladder demonstrates no gallstones however it is suboptimally visualized. Mildly distended gallbladder with gallbladder wall thickening. Common duct is not dilated. The study is limited. I cannot totally exclude cholecystitis as there is a small amount of pericholecystic fluid and the patient does have a sonographic Henson's sign. (3) Afib Current Visit: No Status: Chronic Priority: Low Code(s): I48.91 - UNSPECIFIED ATRIAL FIBRILLATION SNOMED Code(s): 62891580 Comment: Will continue xeralto (4) BPH (benign prostatic hypertrophy) Current Visit: No Status: Chronic Priority: Low Code(s): N40.0 - BENIGN PROSTATIC HYPERPLASIA WITHOUT LOWER URINRY TRACT SYMP SNOMED Code(s): 136772514 Comment: continue proscar (5) HTN (hypertension) Current Visit: No Status: Chronic Priority: Low Code(s): I10 - ESSENTIAL ( PRIMARY) HYPERTENSION SNOMED Code(s): 10754274 Comment: SNP 103-108 Holding metoprolol at this time d/t soft BP's (6) History of dementia Current Visit: No Status: Chronic Priority: Low Code(s): Z86.59 - PERSONAL HISTORY OF OTHER MENTAL AND BEHAVIORAL DISORDERS SNOMED Code(s): 869209439 Comment: continue aricept and risperdol and prozac (7) DVT prophylaxis Current Visit: Yes Status: Acute Code(s): BDN2445 - SNOMED Code(s): 627657237 (8) DNR (do not resuscitate) Current Visit: Yes Status: Acute Status and Disposition: and son updated on patient condition. advised that surgery was contacted for consultation . reports that at baseline the patient can not carry on a conversation and has advance stage dementia.
[2017-09-07] MEDS ORDERED: cefTRIAXone(*) 1 GM in NS 0.9% 50 ML* 50 ML IVPB SCH (12:00)
[2017-09-07] MEDS: Rivaroxaban TAB(*) 15 MG PO SCH (17:49)
[2017-09-07] MEDS ORDERED: NS 0.9% 500 ML* 500 ML IV ONE (17:53)
[2017-09-07] MEDS ORDERED: ZOSYN 3.375 GM x ONE DOSE over 30 miuntes IVPB ×2 (18:00)
[2017-09-07] MEDS: Piperacillin/Tazobac ADVAN(*) 3.375 GM in NS 0.9% 100 ML* 100 ML IVPB SCH (21:46)
[2017-09-08] MEDS ORDERED: Metoprolol Tartrate TAB* 25 MG PO ONE (00:46)
[2017-09-08] MEDS: Piperacillin/Tazobac ADVAN(*) 3.375 GM in NS 0.9% 100 ML* 100 ML IVPB SCH ×3 (05:38→22:02)
[2017-09-08] MEDS: NS 0.9% 1000 ML* 1,000 ML IV SCH ×2 (06:59→22:02)
[2017-09-08 07:47] LABS: EGFR Non-African American 74.8 (>60)
[2017-09-08 08:01] LABS: ABS Basophils 0 10^3/ul (0-0.2); ABS Eosinophils 0 10^3/ul (0-0.6); ABS Lymphocytes 0.3 10^3/ul (1.0-4.8); ABS Neutrophils 10.1 10^3/ul (1.5-7.7); ABS Nucleated RBC 0 10^3/ul; Eosinophil % 0 % (0-6); Hematocrit 35 % (42-52); Hemoglobin 11.8 g/dl (14.0-18.0); Lymphocyte % 2.9 % (25-47); Mean Corpuscular HGB Conc 34 g/dl (31-36); Mean Corpuscular Hemoglobin 33 pg (27-31); Mean Corpuscular Volume 98 fL (80-94); Mean Platelet Volume 8.6 um3 (7.4-10.4); Nucleated Red Blood Cells % 0; Platelet Count 227 10^3/ul (150-450); Red Blood Count 3.57 10^6/ul (4.0-5.4); Red Cell Distribution Width 14 % (10.5-15); White Blood Count 11.5 10^3/ul (3.5-10.8)
[2017-09-08] MEDS: FLUoxetine CAP* 20 MG PO SCH (08:56)
[2017-09-08] MEDS: Donepezil TAB* 5 MG PO SCH (08:56)
[2017-09-08] MEDS: Finasteride TAB* 5 MG PO SCH (08:56)
[2017-09-08] MEDS: Cyanocobalamin TAB* 500 MCG PO SCH (08:56)
--- NOTE | 2017-09-08 13:13 | CONS ---
CC: [facility] * SURGICAL CONSULTATION REPORT: DATE OF CONSULT: 09/08/17 HISTORY OF PRESENT ILLNESS: I was contacted by the hospitalist service to evaluate Mr. Mcknight, an 82-year-old gentleman, fdc patient with severe dementia, who presented to the emergency room with altered mental status , fevers, garbled speech, and hypotension, was noted to have abdominal pain during his stay along with elevated white blood cell count and fever. Right upper quadrant ultrasound showed thickened gallbladder with some pericholecystic fluid. There were no gallstones and the concern was patient was suffering with an acalculous cholecystitis, was started on antibiotics. Since then, patient's pressures have improved as well as fever curve. Patient cannot give any history. PAST MEDICAL HISTORY: Appendectomy and a bowel resection. PHYSICAL EXAM: He is afebrile. Vital signs are stable. His abdomen is soft, nondistended. Tender along the right lateral side without rebound. No mass or hernia is noted. Well-healed midline incision. Rectal exam not performed. DIAGNOSTIC STUDIES/LAB DATA: Labs reviewed, show a white count down to 11.5 from 20. Patient does have normal bilirubin and alk phos as well as AST, ALT. His albumin is 2.9. IMPRESSION: I agree with the diagnosis of likely acalculous cholecystitis and antibiotics at this point. 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 It seems to be improving with antibiotics and this would be the plan. If patient worsens significantly, he would benefit from a CT scan to see if there is any perforation of the gallbladder or any abscess in the abdomen, but this does not seem to be the case at this point. My recommendation would be HIDA scan to rule out blocked cystic duct. If this is noted, then it would be consistent with this diagnosis and if patient continues to improve, we can just go with antibiotic only but if he worsens, with the HIDA scan if that does rule in the diagnosis, we would look more towards Interventional Radiology drain gallbladder under the circumstances. [id number]/CPS #: [id number]
[2017-09-08] MEDS: Rivaroxaban TAB(*) 15 MG PO SCH (17:37)
--- NOTE | 2017-09-08 19:05 | PN ---
Subjective Date of Service: 09/08/17 Interval History: opens eyes to name, disassociated sentences, appears comfortable, more alert today. Family History: Unchanged from Admission Social History: Unchanged from Admission Past Medical History: Unchanged from Admission Objective Active Medications: Cyanocobalamin (Vitamin B12 Tab*) 1,000 mcg PO DAILY [facility] Last Admin: 09/08/17 08:56 Dose: 1,000 mcg Donepezil HCl (Aricept Tab*) 10 mg PO DAILY [facility] Last Admin: 09/08/17 08:56 Dose: 10 mg Finasteride (Proscar Tab*) 5 mg PO DAILY [facility] Last Admin: 09/08/17 08:56 Dose: 5 mg Fluoxetine HCl (Prozac Cap*) 20 mg PO QAM [facility] Last Admin: 09/08/17 08:56 Dose: 20 mg Sodium Chloride (Ns 0.9% 1000 Ml*) 1,000 mls @ 100 mls/hr IV PER RATE [facility] Last Admin: 09/08/17 06:59 Dose: 100 mls/hr Piperacillin Sod/Tazobactam (Sod 3.375 gm/ Sodium Chloride) 100 mls @ 25 mls/ hr IVPB Q8HR [facility] Last Admin: 09/08/17 13:03 Dose: 25 mls/hr Risperidone (Risperdal) 0.25 mg PO QAM [facility] Last Admin: 09/08/17 08:57 Dose: 0.25 mg Risperidone (Risperdal) 0.5 mg PO QPM [facility] Last Admin: 09/08/17 17:37 Dose: 0.5 mg Rivaroxaban (Xarelto(*)) 15 mg PO 1700 [facility] Last Admin: 09/08/17 17:37 Dose: 15 mg Vital Signs - 8 hr 09/08/17 09/08/17 11:33 15:25 Temperature 96.8 F 98.0 F Pulse Rate 86 96 Respiratory 18 15 Rate Blood Pressure 116/66 141/81 (mmHg) O2 Sat by Pulse 99 97 Oximetry Oxygen Devices in Use Now: None Appearance: frail elderly male, confused , alert to name Eyes: No Scleral Icterus Ears/Nose/Mouth/Throat: Clear Oropharnyx Neck: NL Appearance and Movements; NL JVP, Trachea Midline Respiratory: Symmetrical Chest Expansion and Respiratory Effort, Clear to Auscultation, - - diminshed at the bases bilat. moist cough Cardiovascular: NL Sounds; No Murmurs; No JVD Abdominal: NL Sounds; No Tenderness; No Distention Extremities: No Clubbing, Cyanosis Skin: No Rash or Ulcers Neurological: - - confused to person,place and times, responds to name Nutrition: Taking PO's Result Diagrams: 09/08/17 07:09 09/08/17 07:09 Additional Lab and Data: Lab Results 09/06/17 09/06/17 09/06/17 Range/Units 12:32 12:46 12:46 WBC 20.7 H (3.5-10.8) 10^3/ul RBC 4.30 (4.0-5.4) 10^6/ul Hgb 14.2 (14.0-18.0) g/dl Hct 42 (42-52) % MCV 98 H (80-94) fL MCH 33 H (27-31) pg MCHC 34 (31-36) g/dl RDW 14 (10.5-15) % Plt Count 220 (150-450) 10^3/ul MPV 8.0 (7.4-10.4) um3 Neut % (Auto) Not Reportable Lymph % (Auto) Not Reportable [place] % (Auto) Not Reportable Eos % (Auto) Not Reportable Baso % (Auto) Not Reportable Absolute Neuts (auto) Not Reportable Absolute Lymphs (auto) Not Reportable Absolute Monos (auto) Not Reportable Absolute Eos (auto) Not Reportable Absolute Basos (auto) Not Reportable Absolute Nucleated RBC Not Reportable Neutrophils % Pending Nucleated RBC % Not Reportable Normal RBC Morphology Pending INR (Anticoag Therapy) 1.55 H (0.77-1.02) APTT 34.4 (26.0-36.3) seconds Sodium (139-145) mmol/L Potassium (3.5-5.0) mmol/L Chloride (101-111) mmol/L Carbon Dioxide (22-32) mmol/L Anion Gap (2-11) mmol/L BUN (6-24) mg/dL Creatinine (0.67-1.17) mg/dL Est GFR ( Amer) (>60) Est GFR (Non-Af Amer) (>60) BUN/Creatinine Ratio (8-20) Glucose (70-100) mg/dL Lactic Acid (0.5-2.0) mmol/L Calcium (8.6-10.3) mg/dL Total Bilirubin (0.2-1.0) mg/dL AST (13-39) U/L ALT (7-52) U/L Alkaline Phosphatase (34-104) U/L Troponin I (<0.04) ng/mL Total Protein (6.4-8.9) g/dL Albumin (3.2-5.2) g/dL Globulin (2-4) g/dL Albumin/Globulin Ratio (1-3) Urine Color Debbi Urine Appearance Clear Urine pH 5.0 (5-9) Ur Specific [place] 1.027 (1.010-1.030) Urine Protein 1+(30 mg/dl) A (Negative) Urine Ketones Negative (Negative) Urine Blood Negative (Negative) Urine Nitrate Negative (Negative) Urine Bilirubin Negative (Negative) Urine Urobilinogen Negative (Negative) Ur Leukocyte Esterase 1+ A (Negative) Urine WBC (Auto) 2+(11-20/hpf) A (Absent) Urine RBC (Auto) 1+(3-5/hpf) A (Absent) Urine Bacteria Absent (Absent) Hyaline Casts Present A (Absent) Urine Glucose Negative (Negative) Blood Type Antibody Screen 09/06/17 09/06/17 09/06/17 Range/Units 12:46 12:46 12:46 WBC (3.5-10.8) 10^3/ul RBC (4.0-5.4) 10^6/ul Hgb (14.0-18.0) g/dl Hct (42-52) % MCV (80-94) fL MCH (27-31) pg MCHC (31-36) g/dl RDW (10.5-15) % Plt Count (150-450) 10^3/ul MPV (7.4-10.4) um3 Neut % (Auto) Lymph % (Auto) [place] % (Auto) Eos % (Auto) Baso % (Auto) Absolute Neuts (auto) Absolute Lymphs (auto) Absolute Monos (auto) Absolute Eos (auto) Absolute Basos (auto) Absolute Nucleated RBC Neutrophils % Nucleated RBC % Normal RBC Morphology INR (Anticoag Therapy) (0.77-1.02) APTT (26.0-36.3) seconds Sodium 137 L (139-145) mmol/L Potassium 4.4 (3.5-5.0) mmol/L Chloride 105 (101-111) mmol/L Carbon Dioxide 25 (22-32) mmol/L Anion Gap 7 (2-11) mmol/L BUN 31 H (6-24) mg/dL Creatinine 1.31 H (0.67-1.17) mg/dL Est GFR ( Amer) 67.2 (>60) Est GFR (Non-Af Amer) 52.3 (>60) BUN/Creatinine Ratio 23.7 H (8-20) Glucose 103 H (70-100) mg/dL Lactic Acid 1.5 (0.5-2.0) mmol/L Calcium 9.4 (8.6-10.3) mg/dL Total Bilirubin 1.10 H (0.2-1.0) mg/dL AST 19 (13-39) U/L ALT 14 (7-52) U/L Alkaline Phosphatase 59 (34-104) U/L Troponin I 0.01 (<0.04) ng/mL Total Protein 7.1 (6.4-8.9) g/dL Albumin 3.5 (3.2-5.2) g/dL Globulin 3.6 (2-4) g/dL Albumin/Globulin Ratio 1.0 (1-3) Urine Color Urine Appearance Urine pH (5-9) Ur Specific [place] (1.010-1.030) Urine Protein (Negative) Urine Ketones (Negative) Urine Blood (Negative) Urine Nitrate (Negative) Urine Bilirubin (Negative) Urine Urobilinogen (Negative) Ur Leukocyte Esterase (Negative) Urine WBC (Auto) (Absent) Urine RBC (Auto) (Absent) Urine Bacteria (Absent) Hyaline Casts (Absent) Urine Glucose (Negative) Blood Type A Positive Antibody Screen Pending Assess/Plan/Problems-Billing Assessment: Mr. Mcknight is an 82 y.o male with a past medical history of afib, dementia, htn, and BPH who was brought to the emergency for further evaluation of cough, congestion and lethargy. Patient was found to have a 20.7 WBC's and urine suspicious for UTI, he also has some moderate RUQ tenderness to palpation - Patient Problems (1) Leukocytosis Current Visit: Yes Status: Acute Code(s): D72.829 - ELEVATED WHITE BLOOD CELL COUNT, UNSPECIFIED SNOMED Code(s): 614546152 Comment: Admitted with fever reported of 101 at [facility] [place] WBc's 20.7 on admission and no marked improvement today 11.5 afebrile Will continue antibiotics - will continue zosyn repeat lactic acid- 1.1 will monitor- CBC- improving suspect this could be related to cholecystitis given his significant RUQ abd pain, patient moaned and attempted to pull away this examiner hand when palpating the RUQ- + henson's -continue to have RUQ tenderness today UTI- culture showed no growth (2) Right upper quadrant abdominal pain Current Visit: Yes Status: Acute Code(s): R10.11 - RIGHT UPPER QUADRANT PAIN SNOMED Code(s): 431642688 Comment: - Surgery consulted - Dr. Ca - would like a HIDA scan- ordered unavailable today- recommended continuing with antibiotics at this time - Gallbladder ultrasound - gallbladder demonstrates no gallstones however it is suboptimally visualized. Mildly distended gallbladder with gallbladder wall thickening. Common duct is not dilated. The study is limited. I cannot totally exclude cholecystitis as there is a small amount of pericholecystic fluid and the patient does have a sonographic Henson's sign. (3) Afib Current Visit: No Status: Chronic Priority: Low Code(s): I48.91 - UNSPECIFIED ATRIAL FIBRILLATION SNOMED Code(s): 14072048 Comment: Will continue xeralto (4) BPH (benign prostatic hypertrophy) Current Visit: No Status: Chronic Priority: Low Code(s): N40.0 - BENIGN PROSTATIC HYPERPLASIA WITHOUT LOWER URINRY TRACT SYMP SNOMED Code(s): 069927611 Comment: continue proscar (5) HTN (hypertension) Current Visit: No Status: Chronic Priority: Low Code(s): I10 - ESSENTIAL ( PRIMARY) HYPERTENSION SNOMED Code(s): 99519449 Comment: SBP improved Holding metoprolol at this time will reevaluate in the AM to see if metoprolol should be restarted (6) History of dementia Current Visit: No Status: Chronic Priority: Low Code(s): Z86.59 - PERSONAL HISTORY OF OTHER MENTAL AND BEHAVIORAL DISORDERS SNOMED Code(s): 395277220 Comment: continue aricept and risperdol and prozac (7) DVT prophylaxis Current Visit: Yes Status: Acute Code(s): PCU2683 - SNOMED Code(s): 134353620 Comment: beth (8) DNR (do not resuscitate) Current Visit: Yes Status: Acute Status and Disposition: and son updated on patient condition. reports that at baseline the patient can not carry on a conversation and has advance stage dementia.
[2017-09-09] MEDS: Piperacillin/Tazobac ADVAN(*) 3.375 GM in NS 0.9% 100 ML* 100 ML IVPB SCH ×3 (05:24→21:05)
[2017-09-09 07:05] LABS: EGFR Non-African American 86.1 (>60)
[2017-09-09 07:18] LABS: ABS Basophils 0 10^3/ul (0-0.2); ABS Eosinophils 0 10^3/ul (0-0.6); ABS Lymphocytes 0.3 10^3/ul (1.0-4.8); ABS Neutrophils 8.8 10^3/ul (1.5-7.7); ABS Nucleated RBC 0 10^3/ul; Eosinophil % 0.1 % (0-6); Hematocrit 38 % (42-52); Hemoglobin 12.7 g/dl (14.0-18.0); Mean Corpuscular HGB Conc 34 g/dl (31-36); Mean Corpuscular Hemoglobin 33 pg (27-31); Mean Corpuscular Volume 98 fL (80-94); Nucleated Red Blood Cells % 0.1; Platelet Count 249 10^3/ul (150-450); Red Blood Count 3.83 10^6/ul (4.0-5.4); Red Cell Distribution Width 14 % (10.5-15)
[2017-09-09] MEDS: NS 0.9% 1000 ML* 1,000 ML IV SCH ×2 (10:46→21:05)
--- NOTE | 2017-09-09 11:50 | RAD ---
Indication: Acalculous cholecystitis. Hepatobiliary scan was performed. The study was performed after intravenous injection of 6.2 mCi of technetium 99m tetrofosmin. There is prompt uptake of the radiotracer by the hepatocytes. There is no excretion into the biliary system at 60 minutes. No reflux into the gallbladder is noted at 3 hours. There may be some minimal bowel activity. IMPRESSION: The biliary system is poorly opacified with retention of radionuclide in the liver. This may represent diffuse hepatocellular failure. No reflux into the gallbladder is identified.
[2017-09-09] MEDS: FLUoxetine CAP* 20 MG PO SCH (16:17)
[2017-09-09] MEDS: Donepezil TAB* 5 MG PO SCH (16:17)
[2017-09-09] MEDS: Cyanocobalamin TAB* 500 MCG PO SCH (16:17)
[2017-09-09] MEDS: Finasteride TAB* 5 MG PO SCH (16:17)
[2017-09-09 16:58] LABS: INR 1.76 (0.77-1.02)
--- NOTE | 2017-09-09 17:40 | PN ---
Subjective Date of Service: 09/09/17 Interval History: Alert to verbal, speech is more clear today, confused as baseline, continues to guard and grimace with RUQ palpation, attempts to pull hand away. Family History: Unchanged from Admission Social History: Unchanged from Admission Past Medical History: Unchanged from Admission Objective Active Medications: Cyanocobalamin (Vitamin B12 Tab*) 1,000 mcg PO DAILY [facility] Last Admin: 09/09/17 16:17 Dose: Not Given Donepezil HCl (Aricept Tab*) 10 mg PO DAILY [facility] Last Admin: 09/09/17 16:17 Dose: Not Given Finasteride (Proscar Tab*) 5 mg PO DAILY [facility] Last Admin: 09/09/17 16:17 Dose: Not Given Fluoxetine HCl (Prozac Cap*) 20 mg PO QAM [facility] Last Admin: 09/09/17 16:17 Dose: Not Given Sodium Chloride (Ns 0.9% 1000 Ml*) 1,000 mls @ 100 mls/hr IV PER RATE [facility] Last Admin: 09/09/17 10:46 Dose: 100 mls/hr Piperacillin Sod/Tazobactam (Sod 3.375 gm/ Sodium Chloride) 100 mls @ 25 mls/ hr IVPB Q8HR [facility] Last Admin: 09/09/17 16:11 Dose: 25 mls/hr Risperidone (Risperdal) 0.25 mg PO QAM [facility] Last Admin: 09/09/17 16:17 Dose: Not Given Risperidone (Risperdal) 0.5 mg PO QPM [facility] Last Admin: 09/08/17 17:37 Dose: 0.5 mg Rivaroxaban (Xarelto(*)) 15 mg PO 1700 [facility] Oxygen Devices in Use Now: None Appearance: elderly male, alert to verbal, appears comfortable Eyes: No Scleral Icterus Ears/Nose/Mouth/Throat: NL Teeth, Lips, Gums, Clear Oropharnyx, Mucous Membranes Moist Neck: NL Appearance and Movements; NL JVP, Trachea Midline Respiratory: Symmetrical Chest Expansion and Respiratory Effort, - - diminshed t /o bilat Cardiovascular: NL Sounds; No Murmurs; No JVD, RRR, No Edema Abdominal: NL Sounds; No Tenderness; No Distention Extremities: No Edema, No Clubbing, Cyanosis Skin: No Rash or Ulcers Neurological: Alert and Oriented x 3 Nutrition: Taking PO's Result Diagrams: 09/09/17 06:05 09/09/17 06:05 Additional Lab and Data: Lab Results 09/06/17 09/06/17 09/06/17 Range/Units 12:32 12:46 12:46 WBC 20.7 H (3.5-10.8) 10^3/ul RBC 4.30 (4.0-5.4) 10^6/ul Hgb 14.2 (14.0-18.0) g/dl Hct 42 (42-52) % MCV 98 H (80-94) fL MCH 33 H (27-31) pg MCHC 34 (31-36) g/dl RDW 14 (10.5-15) % Plt Count 220 (150-450) 10^3/ul MPV 8.0 (7.4-10.4) um3 Neut % (Auto) Not Reportable Lymph % (Auto) Not Reportable [place] % (Auto) Not Reportable Eos % (Auto) Not Reportable Baso % (Auto) Not Reportable Absolute Neuts (auto) Not Reportable Absolute Lymphs (auto) Not Reportable Absolute Monos (auto) Not Reportable Absolute Eos (auto) Not Reportable Absolute Basos (auto) Not Reportable Absolute Nucleated RBC Not Reportable Neutrophils % Pending Nucleated RBC % Not Reportable Normal RBC Morphology Pending INR (Anticoag Therapy) 1.55 H (0.77-1.02) APTT 34.4 (26.0-36.3) seconds Sodium (139-145) mmol/L Potassium (3.5-5.0) mmol/L Chloride (101-111) mmol/L Carbon Dioxide (22-32) mmol/L Anion Gap (2-11) mmol/L BUN (6-24) mg/dL Creatinine (0.67-1.17) mg/dL Est GFR ( Amer) (>60) Est GFR (Non-Af Amer) (>60) BUN/Creatinine Ratio (8-20) Glucose (70-100) mg/dL Lactic Acid (0.5-2.0) mmol/L Calcium (8.6-10.3) mg/dL Total Bilirubin (0.2-1.0) mg/dL AST (13-39) U/L ALT (7-52) U/L Alkaline Phosphatase (34-104) U/L Troponin I (<0.04) ng/mL Total Protein (6.4-8.9) g/dL Albumin (3.2-5.2) g/dL Globulin (2-4) g/dL Albumin/Globulin Ratio (1-3) Urine Color Debbi Urine Appearance Clear Urine pH 5.0 (5-9) Ur Specific [place] 1.027 (1.010-1.030) Urine Protein 1+(30 mg/dl) A (Negative) Urine Ketones Negative (Negative) Urine Blood Negative (Negative) Urine Nitrate Negative (Negative) Urine Bilirubin Negative (Negative) Urine Urobilinogen Negative (Negative) Ur Leukocyte Esterase 1+ A (Negative) Urine WBC (Auto) 2+(11-20/hpf) A (Absent) Urine RBC (Auto) 1+(3-5/hpf) A (Absent) Urine Bacteria Absent (Absent) Hyaline Casts Present A (Absent) Urine Glucose Negative (Negative) Blood Type Antibody Screen 09/06/17 09/06/17 09/06/17 Range/Units 12:46 12:46 12:46 WBC (3.5-10.8) 10^3/ul RBC (4.0-5.4) 10^6/ul Hgb (14.0-18.0) g/dl Hct (42-52) % MCV (80-94) fL MCH (27-31) pg MCHC (31-36) g/dl RDW (10.5-15) % Plt Count (150-450) 10^3/ul MPV (7.4-10.4) um3 Neut % (Auto) Lymph % (Auto) [place] % (Auto) Eos % (Auto) Baso % (Auto) Absolute Neuts (auto) Absolute Lymphs (auto) Absolute Monos (auto) Absolute Eos (auto) Absolute Basos (auto) Absolute Nucleated RBC Neutrophils % Nucleated RBC % Normal RBC Morphology INR (Anticoag Therapy) (0.77-1.02) APTT (26.0-36.3) seconds Sodium 137 L (139-145) mmol/L Potassium 4.4 (3.5-5.0) mmol/L Chloride 105 (101-111) mmol/L Carbon Dioxide 25 (22-32) mmol/L Anion Gap 7 (2-11) mmol/L BUN 31 H (6-24) mg/dL Creatinine 1.31 H (0.67-1.17) mg/dL Est GFR ( Amer) 67.2 (>60) Est GFR (Non-Af Amer) 52.3 (>60) BUN/Creatinine Ratio 23.7 H (8-20) Glucose 103 H (70-100) mg/dL Lactic Acid 1.5 (0.5-2.0) mmol/L Calcium 9.4 (8.6-10.3) mg/dL Total Bilirubin 1.10 H (0.2-1.0) mg/dL AST 19 (13-39) U/L ALT 14 (7-52) U/L Alkaline Phosphatase 59 (34-104) U/L Troponin I 0.01 (<0.04) ng/mL Total Protein 7.1 (6.4-8.9) g/dL Albumin 3.5 (3.2-5.2) g/dL Globulin 3.6 (2-4) g/dL Albumin/Globulin Ratio 1.0 (1-3) Urine Color Urine Appearance Urine pH (5-9) Ur Specific [place] (1.010-1.030) Urine Protein (Negative) Urine Ketones (Negative) Urine Blood (Negative) Urine Nitrate (Negative) Urine Bilirubin (Negative) Urine Urobilinogen (Negative) Ur Leukocyte Esterase (Negative) Urine WBC (Auto) (Absent) Urine RBC (Auto) (Absent) Urine Bacteria (Absent) Hyaline Casts (Absent) Urine Glucose (Negative) Blood Type A Positive Antibody Screen Pending Assess/Plan/Problems-Billing Assessment: Mr. Mcknight is an 82 y.o male with a past medical history of afib, dementia, htn, and BPH who was brought to the emergency for further evaluation of cough, congestion and lethargy. Patient was found to have a 20.7 WBC's and urine suspicious for UTI, he also has some moderate RUQ tenderness to palpation - Patient Problems (1) Leukocytosis Current Visit: Yes Status: Acute Code(s): D72.829 - ELEVATED WHITE BLOOD CELL COUNT, UNSPECIFIED SNOMED Code(s): 980916876 Comment: Admitted with fever reported of 101 at [facility] WBc's 20.7 on admission and no marked improvement today 10.0 afebrile Will continue antibiotics - will continue zosyn will monitor- CBC- improving suspect this could be related to cholecystitis given his significant RUQ abd pain, patient moaned and attempted to pull away this examiner hand when palpating the RUQ- + henson's -continue to have RUQ tenderness maybe slightly improved today but continues to have guarding UTI- culture showed no growth (2) Right upper quadrant abdominal pain Current Visit: Yes Status: Acute Code(s): R10.11 - RIGHT UPPER QUADRANT PAIN SNOMED Code(s): 535836714 Comment: - Surgery consulted - Dr. Ca - would like a HIDA scan- completed - recommended continuing with antibiotics - will go to IR tomorrow at 1pm biliary drain - Gallbladder ultrasound - gallbladder demonstrates no gallstones however it is suboptimally visualized. Mildly distended gallbladder with gallbladder wall thickening. Common duct is not dilated. The study is limited. I cannot totally exclude cholecystitis as there is a small amount of pericholecystic fluid and the patient does have a sonographic Henson's sign. (3) Afib Current Visit: No Status: Chronic Priority: Low Code(s): I48.91 - UNSPECIFIED ATRIAL FIBRILLATION SNOMED Code(s): 22056117 Comment: Will hold xeralto tonight may resume 09/10/2017 after procedure (4) BPH (benign prostatic hypertrophy) Current Visit: No Status: Chronic Priority: Low Code(s): N40.0 - BENIGN PROSTATIC HYPERPLASIA WITHOUT LOWER URINRY TRACT SYMP SNOMED Code(s): 336678597 Comment: continue proscar (5) HTN (hypertension) Current Visit: No Status: Chronic Priority: Low Code(s): I10 - ESSENTIAL ( PRIMARY) HYPERTENSION SNOMED Code(s): 35008330 Comment: SBP improved metoprolol restarted (6) History of dementia Current Visit: No Status: Chronic Priority: Low Code(s): Z86.59 - PERSONAL HISTORY OF OTHER MENTAL AND BEHAVIORAL DISORDERS SNOMED Code(s): 801172502 Comment: continue aricept and risperdol and prozac (7) DVT prophylaxis Current Visit: Yes Status: Acute Code(s): HFO0162 - SNOMED Code(s): 019164521 Comment: goyoto (8) DNR (do not resuscitate) Current Visit: Yes Status: Acute Status and Disposition: and son updated on patient condition. reports that at baseline the patient can not carry on a conversation and has advance stage dementia.
[2017-09-09] MEDS: Metoprolol Tartrate TAB* 25 MG PO SCH (18:07)
[2017-09-09] MEDS ORDERED: Metoprolol Tartrate TAB* 25 MG PO SCH (21:00)
[2017-09-10] MEDS: Piperacillin/Tazobac ADVAN(*) 3.375 GM in NS 0.9% 100 ML* 100 ML IVPB SCH ×3 (05:46→21:39)
[2017-09-10 06:39] LABS: ABS Basophils 0 10^3/ul (0-0.2); ABS Eosinophils 0 10^3/ul (0-0.6); ABS Lymphocytes 0.4 10^3/ul (1.0-4.8); ABS Monocytes 1.4 10^3/ul (0-0.8); ABS Neutrophils 9.3 10^3/ul (1.5-7.7); ABS Nucleated RBC 0 10^3/ul; Eosinophil % 0.2 % (0-6); Hematocrit 37 % (42-52); Hemoglobin 12.7 g/dl (14.0-18.0); Lymphocyte % 3.6 % (25-47); Mean Corpuscular HGB Conc 34 g/dl (31-36); Mean Corpuscular Hemoglobin 33 pg (27-31); Mean Corpuscular Volume 98 fL (80-94); Nucleated Red Blood Cells % 0; Platelet Count 262 10^3/ul (150-450); Red Cell Distribution Width 14 % (10.5-15); White Blood Count 11.1 10^3/ul (3.5-10.8)
[2017-09-10 06:46] LABS: INR 1.46 (0.77-1.02)
[2017-09-10 06:54] LABS: EGFR Non-African American 102.6 (>60)
[2017-09-10] MEDS: NS 0.9% 1000 ML* 1,000 ML IV SCH ×2 (08:04→22:59)
[2017-09-10] MEDS: Finasteride TAB* 5 MG PO SCH (08:50)
[2017-09-10] MEDS: Donepezil TAB* 5 MG PO SCH (08:50)
[2017-09-10] MEDS: Cyanocobalamin TAB* 500 MCG PO SCH (08:52)
[2017-09-10] MEDS: Metoprolol Tartrate TAB* 25 MG PO SCH ×2 (08:52→21:40)
[2017-09-10] MEDS: FLUoxetine CAP* 20 MG PO SCH (08:52)
[2017-09-10] MEDS ORDERED: fentaNYL* 50 MCG/ML 2 ML VIAL (100 MCG VIAL) ONE (13:08)
--- NOTE | 2017-09-10 15:38 | PN ---
Subjective Date of Service: 09/10/17 Interval History: Mr. Mcknight states that he is doing terrible when asked but is not able to offer further details. He appears comfortable. Family History: Unchanged from Admission Social History: Unchanged from Admission Past Medical History: Unchanged from Admission Objective Active Medications: Cyanocobalamin (Vitamin B12 Tab*) 1,000 mcg PO DAILY [facility] Donepezil HCl (Aricept Tab*) 10 mg PO DAILY [facility] Finasteride (Proscar Tab*) 5 mg PO DAILY [facility] Fluoxetine HCl (Prozac Cap*) 20 mg PO QAM [facility] Sodium Chloride (Ns 0.9% 1000 Ml*) 1,000 mls @ 100 mls/hr IV PER RATE [facility] Piperacillin Sod/Tazobactam (Sod 3.375 gm/ Sodium Chloride) 100 mls @ 25 mls/ hr IVPB Q8HR [facility] Metoprolol Tartrate (Lopressor Tab*) 25 mg PO 0900,2100 [facility] Risperidone (Risperdal) 0.25 mg PO QAM [facility] Risperidone (Risperdal) 0.5 mg PO QPM [facility] Rivaroxaban (Xarelto(*)) 15 mg PO 1700 [facility] Vital Signs - 8 hr 09/10/17 09/10/17 12:24 12:28 Respiratory 16 Rate O2 Sat by Pulse 99 Oximetry Oxygen Devices in Use Now: None Appearance: Male lying in bed in NAD Eyes: No Scleral Icterus Ears/Nose/Mouth/Throat: Mucous Membranes Moist Neck: Trachea Midline Respiratory: Symmetrical Chest Expansion and Respiratory Effort, Clear to Auscultation Cardiovascular: NL Sounds; No Murmurs; No JVD, No Edema Abdominal: - - Drain to Right upper quadrant with straw colored blood tinged fluid Lymphatic: No Axillary Adenopathy Skin: No Rash or Ulcers Neurological: NL Muscle Strength and Tone, - - Awakens easily to voice, answers with a few words, oriented only to self Nutrition: Taking PO's Result Diagrams: 09/10/17 06:09 09/10/17 06:09 Additional Lab and Data: . Assess/Plan/Problems-Billing Assessment: Mr. Mcknight is an 82 yo male with a past medical history of afib, dementia, htn , and BPH who was brought to the emergency for further evaluation of cough, congestion and lethargy, intially with concern for sepsis with UTI, but now found to have cholecystitis s/p drain placement. - Patient Problems (1) Cholecystitis Comment: - Surgery consult appreciated. Now s/p biliary drain with concern for cholecystitis. - Leukocytosis with right upper quadrant pain. Gallbladder ultrasound - gallbladder demonstrates no gallstones however it is suboptimally visualized. Mildly distended gallbladder with gallbladder wall thickening. Could not totally exclude cholecystitis as there was a small amount of pericholecystic fluid and the patient does have a sonographic Henson's sign. - Continue zosyn. (2) Afib Comment: - Resume xarelto. (3) BPH (benign prostatic hypertrophy) Comment: - Continue proscar (4) HTN (hypertension) Comment: - SBP 110-130s. - Continue metoprolol. (5) History of dementia Comment: - Continue aricept and risperdol and prozac - reports that at baseline the patient can not carry on a conversation and has advance stage dementia. (6) DVT prophylaxis Comment: - Xarelto. (7) DNR (do not resuscitate) Comment: Status and Disposition: Inpatient. Anticipate return to [facility] when medically stable.
--- NOTE | 2017-09-10 15:59 | RAD ---
CPT II Codes: G9500 PERCUTANEOUS CHOLECYSTOSTOMY WITH ULTRASOUND AND FLUOROSCOPIC GUIDANCE INDICATION: Fever, leukocytosis and right upper quadrant pain in a patient who is a poor operative candidate. COMPARISON: Ultrasound of the right upper quadrant dated September 06, 2017 as well as HIDA scan dated September 09, 2017. The latter study shows no filling of radiotracer in the gallbladder indicating cystic duct obstruction. FLUOROSCOPY TIME: 38 seconds ANESTHESIA AND OTHER PERIOPERATIVE MEDICATIONS: 1% lidocaine locally. Intravenous fentanyl. PROCEDURE NOTE AND IMAGING FINDINGS: The benefits and risks of the procedure explained to the patient and the patient's "Sahra". The patient's consented to the procedure. Preliminary sonographic exam demonstrates sonographic signs of obstructive cholecystitis similar to the preprocedural ultrasound. Color flow analysis does not show any pulsating arteries in the intended percutaneous biopsy tract or in the immediate vicinity of the planned drain placement. A percutaneous tract was specifically determined so that a small portion of the tract courses through the right lobe of the liver to better tamponade the gallbladder puncture site necessary for drain placement. The patient was brought to the fluoroscopy suite and positioned in the right anterior oblique supine position. A formal time out was preformed with the technologist and nursing staff. The intended percutaneous cholecystostomy drain site was prepped and draped in the usual sterile fashion. The patient was given intravenous sedation and local anesthesia with 1% lidocaine. Using ultrasound guidance the gallbladder was accessed percutaneously with a 10-[place] Skater pigtail drain according to the trocar technique. An ultrasound image was saved confirming correct positioning of the needle tip in the collection. 40 mL of fibrinous dark brown color fluid was aspirated, capped and sent to the laboratory for analysis. Under fluoroscopic control dilute contrast was injected outlining the gallbladder.. No fistulous communication with the bowel was observed. No filling of the cystic duct was seen. With fluoroscopic guidance the pigtail catheter was positioned into the gallbladder lumen. After draining out as much fluid as would easily drained from the recently placed tube, the cavity was gently irrigated with sterile saline. The catheter was secured to the skin and the site was dressed with sterile gauze. The tube was connected to a gravity drainage bag. The patient tolerated the procedure well without incident. IMPRESSION: Uncomplicated placement of 10 [place]ian pigtail drainage catheter into the gallbladder with ultrasound and fluoroscopic guidance as described in the report. PLAN: 1. Drainage catheter to gravity. 2. Monitor drain output. 3. The drain should be gently flushed with 10 mL sterile saline through the three-way stopcock every 8 hours. Do not aspirate the drain. Return to gravity drainage after the flush injection. 4. Follow-up laboratory samples.
[2017-09-10] MEDS: Rivaroxaban TAB(*) 15 MG PO SCH (17:35)
[2017-09-11] MEDS: Piperacillin/Tazobac ADVAN(*) 3.375 GM in NS 0.9% 100 ML* 100 ML IVPB SCH ×3 (05:34→21:40)
[2017-09-11 06:22] LABS: Hematocrit 35 % (42-52); Hemoglobin 11.8 g/dl (14.0-18.0); Mean Corpuscular HGB Conc 34 g/dl (31-36); Mean Corpuscular Hemoglobin 33 pg (27-31); Mean Corpuscular Volume 97 fL (80-94); Mean Platelet Volume 7.7 um3 (7.4-10.4); Platelet Count 258 10^3/ul (150-450); Red Cell Distribution Width 14 % (10.5-15); White Blood Count 10.4 10^3/ul (3.5-10.8)
[2017-09-11 06:38] LABS: EGFR Non-African American 96.5 (>60)
[2017-09-11 06:51] LABS: ABS Basophils 0 10^3/ul (0-0.2); ABS Eosinophils 0 10^3/ul (0-0.6); ABS Lymphocytes 0.6 10^3/ul (1.0-4.8); ABS Neutrophils 8.8 10^3/ul (1.5-7.7); ABS Nucleated RBC 0 10^3/ul; Eosinophil % 0.2 % (0-6); Lymphocyte % 5.4 % (25-47); Nucleated Red Blood Cells % 0
[2017-09-11] MEDS: Donepezil TAB* 5 MG PO SCH (09:18)
[2017-09-11] MEDS: Cyanocobalamin TAB* 500 MCG PO SCH (09:18)
[2017-09-11] MEDS: FLUoxetine CAP* 20 MG PO SCH (09:18)
[2017-09-11] MEDS: Metoprolol Tartrate TAB* 25 MG PO SCH ×2 (09:18→21:40)
[2017-09-11] MEDS: Finasteride TAB* 5 MG PO SCH (09:18)
[2017-09-11] MEDS: NS 0.9% 1000 ML* 1,000 ML IV SCH ×2 (09:27→19:43)
--- NOTE | 2017-09-11 12:21 | PN ---
Subjective Date of Service: 09/11/17 Interval History: Mr. Mcknight is confused but denies any complaint this morning. He appears in no acute distress. Family History: Unchanged from Admission Social History: Unchanged from Admission Past Medical History: Unchanged from Admission Objective Active Medications: Cyanocobalamin (Vitamin B12 Tab*) 1,000 mcg PO DAILY [facility] Donepezil HCl (Aricept Tab*) 10 mg PO DAILY [facility] Finasteride (Proscar Tab*) 5 mg PO DAILY [facility] Fluoxetine HCl (Prozac Cap*) 20 mg PO QAM [facility] Sodium Chloride (Ns 0.9% 1000 Ml*) 1,000 mls @ 100 mls/hr IV PER RATE [facility] Piperacillin Sod/Tazobactam (Sod 3.375 gm/ Sodium Chloride) 100 mls @ 25 mls/ hr IVPB Q8HR [facility] Metoprolol Tartrate (Lopressor Tab*) 25 mg PO 0900,2100 [facility] Risperidone (Risperdal) 0.25 mg PO QAM [facility] Risperidone (Risperdal) 0.5 mg PO QPM [facility] Rivaroxaban (Xarelto(*)) 15 mg PO 1700 [facility] Vital Signs: Temp Pulse Resp BP Pulse Ox 97.3 F 91 18 113/76 98 09/11/17 07:31 09/11/17 07:31 09/11/17 08:00 09/11/17 07:31 09/11/17 08:00 Oxygen Devices in Use Now: None Appearance: Elderly male lying in bed in NAD Eyes: No Scleral Icterus Ears/Nose/Mouth/Throat: Mucous Membranes Moist Neck: Trachea Midline Respiratory: Symmetrical Chest Expansion and Respiratory Effort, Clear to Auscultation Cardiovascular: NL Sounds; No Murmurs; No JVD, No Edema Abdominal: NL Sounds; No Tenderness; No Distention, - - Percutaneous drain to right upper quadrant with pale christensen draininage Lymphatic: No Cervical Adenopathy Extremities: No Edema Skin: No Rash or Ulcers Neurological: NL Muscle Strength and Tone, - - Alert, oriented to self only Nutrition: Taking PO's Result Diagrams: 09/11/17 06:02 09/11/17 06:02 Additional Lab and Data: . Microbiology and Other Data: . Assess/Plan/Problems-Billing Assessment: Mr. Mcknight is an 82 yo male with a past medical history of afib, dementia, htn , and BPH who was brought to the emergency for further evaluation of cough, congestion and lethargy, intially with concern for sepsis with UTI, but now found to have cholecystitis s/p drain placement. - Patient Problems (1) Cholecystitis Comment: - Surgery consult appreciated. Now s/p biliary drain with concern for acalculous cholecystitis. - Plan to continue drain for 7-10 days. - Continue zosyn pendinding sensitivities. (2) Afib Comment: - Resume xarelto. (3) BPH (benign prostatic hypertrophy) Comment: - Continue proscar (4) HTN (hypertension) Comment: - SBP 110-130s. - Continue metoprolol. (5) History of dementia Comment: - Continue aricept and risperdol and prozac - reports that at baseline the patient can not carry on a conversation and has advance stage dementia. (6) DVT prophylaxis Comment: - Xarelto. (7) DNR (do not resuscitate) Comment: Status and Disposition: Inpatient. Anticipate return to [facility] [place] tomorrow.
--- NOTE | 2017-09-11 15:07 | PN ---
Progress Note - Progress Note Date of Service: 09/11/17 Note: Surgery Progress: (patient seen with and examined by Dr. Ca) S: per patient, "I feel good". (percutaneous cholecystostomy drain placed by IR yesterday). Apparently eating well per nsg note. Current Medications Cyanocobalamin (Vitamin B12 Tab*) 1,000 mcg PO DAILY [facility] Last Admin: 09/11/17 09:18 Dose: 1,000 mcg Donepezil HCl (Aricept Tab*) 10 mg PO DAILY [facility] Last Admin: 09/11/17 09:18 Dose: 10 mg Finasteride (Proscar Tab*) 5 mg PO DAILY [facility] Last Admin: 09/11/17 09:18 Dose: 5 mg Fluoxetine HCl (Prozac Cap*) 20 mg PO QAM [facility] Last Admin: 09/11/17 09:18 Dose: 20 mg Sodium Chloride (Ns 0.9% 1000 Ml*) 1,000 mls @ 100 mls/hr IV PER RATE [facility] Last Admin: 09/11/17 09:27 Dose: 100 mls/hr Piperacillin Sod/Tazobactam (Sod 3.375 gm/ Sodium Chloride) 100 mls @ 25 mls/ hr IVPB Q8HR [facility] Last Admin: 09/11/17 13:44 Dose: 25 mls/hr Metoprolol Tartrate (Lopressor Tab*) 25 mg PO 0900,2100 [facility] Last Admin: 09/11/17 09:18 Dose: 25 mg Risperidone (Risperdal) 0.25 mg PO QAM [facility] Last Admin: 09/11/17 09:19 Dose: 0.25 mg Risperidone (Risperdal) 0.5 mg PO QPM [facility] Last Admin: 09/10/17 17:34 Dose: 0.5 mg Rivaroxaban (Xarelto(*)) 15 mg PO 1700 [facility] Last Admin: 09/10/17 17:35 Dose: 15 mg O: Vital Signs - 8 hr 09/11/17 09/11/17 09/11/17 07:31 08:00 11:43 Temperature 97.3 F 96.3 F Pulse Rate 91 90 Respiratory 20 18 18 Rate Blood Pressure 113/76 110/69 (mmHg) O2 Sat by Pulse 98 98 99 Oximetry Intake and Output Last 24 Hours 09/09/17 09/10/17 09/11/17 09/12/17 06:59 06:59 06:59 06:59 Intake Total 3363 1981 3256 340 Balance 3363 1981 3256 340 Intake: IV Fluids 2817 1852 2631 NS (0.9%) 2817 1852 2631 IVPB 226 485 ABX - CEFTRIAXONE 121 ABX - PIPERACILLIN 105 485 Oral 320 130 140 340 Other: Estimated Void Medium Large Medium Medium # Bowel Movements 0 0 0 1 Estimated Stool Amount Large Large # Voids 2 1 2 2 Abd: biliary drain w/ moderate amt of light brown, fairly clear, drainage; soft ; no apparent tenderness to palp C&S: SOURCE: GALLBL FLD SPDESC: ORDERED: BF Cult Bottles COMMENTS: Verbal to [id number] by ANNMARIE at 1243 on 09/11/17. Results read back accurately. Procedure Result Reported Site BF Aerobic Culture Bottle Preliminary 09/11/17- 1243 ML Aerobic Bottle Gram Stain Gram Negative Bacilli Organism 1 KLEBSIELLA PNEUMONIAE BF Anaerobic Culture Bottle Preliminary 09/11/17- 1243 ML Anaerobic Btl Gram Stain Gram Negative Bacilli A: s/p perc drainage of acalculous cholecystitis, improved; on Zosyn P: cont Zosyn (transition to po abx when sensitivities back); tentative plan is for return to [facility] tomorrow w/ drain in place (daily output to be recorded ; no need for flushing); office f/u w/ Dr. Ca in one week.
[2017-09-11] MEDS: Rivaroxaban TAB(*) 15 MG PO SCH (17:25)
[2017-09-12] MEDS: Piperacillin/Tazobac ADVAN(*) 3.375 GM in NS 0.9% 100 ML* 100 ML IVPB SCH (05:39)
[2017-09-12 07:31] VITALS: BP 127/74
[2017-09-12] MEDS: Finasteride TAB* 5 MG PO SCH (08:08)
[2017-09-12] MEDS: Cyanocobalamin TAB* 500 MCG PO SCH (08:08)
[2017-09-12] MEDS: FLUoxetine CAP* 20 MG PO SCH (08:08)
[2017-09-12] MEDS: Metoprolol Tartrate TAB* 25 MG PO SCH (08:09)
[2017-09-12] MEDS: Donepezil TAB* 5 MG PO SCH (08:09)
--- NOTE | 2017-09-12 10:17 | PN ---
Subjective Date of Service: 09/12/17 Interval History: Mr. Mcknight is confused but denies any complaint and appears comfortable. Family History: Unchanged from Admission Social History: Unchanged from Admission Past Medical History: Unchanged from Admission Objective Active Medications: Cyanocobalamin (Vitamin B12 Tab*) 1,000 mcg PO DAILY [facility] Donepezil HCl (Aricept Tab*) 10 mg PO DAILY [facility] Finasteride (Proscar Tab*) 5 mg PO DAILY [facility] Fluoxetine HCl (Prozac Cap*) 20 mg PO QAM [facility] Sodium Chloride (Ns 0.9% 1000 Ml*) 1,000 mls @ 100 mls/hr IV PER RATE [facility] Piperacillin Sod/Tazobactam (Sod 3.375 gm/ Sodium Chloride) 100 mls @ 25 mls/ hr IVPB Q8HR [facility] Metoprolol Tartrate (Lopressor Tab*) 25 mg PO 0900,2100 [facility] Risperidone (Risperdal) 0.25 mg PO QAM [facility] Risperidone (Risperdal) 0.5 mg PO QPM [facility] Rivaroxaban (Xarelto(*)) 15 mg PO 1700 [facility] Vital Signs: Temp Pulse Resp BP Pulse Ox 97.7 F 87 18 127/74 97 09/12/17 07:28 09/12/17 07:28 09/12/17 07:28 09/12/17 07:28 09/12/17 07:28 Oxygen Devices in Use Now: None Appearance: Male lying in bed in NAD Eyes: No Scleral Icterus Ears/Nose/Mouth/Throat: NL Teeth, Lips, Gums Neck: NL Appearance and Movements; NL JVP Respiratory: Symmetrical Chest Expansion and Respiratory Effort, Clear to Auscultation Cardiovascular: NL Sounds; No Murmurs; No JVD, No Edema Abdominal: NL Sounds; No Tenderness; No Distention Extremities: No Edema Skin: No Rash or Ulcers Neurological: NL Muscle Strength and Tone, - - Alert, oriented to self only Nutrition: Taking PO's Result Diagrams: 09/11/17 06:02 09/11/17 06:02 Additional Lab and Data: . Microbiology and Other Data: . Assess/Plan/Problems-Billing Assessment: Mr. Mcknight is an 82 yo male with a past medical history of afib, dementia, htn , and BPH who was brought to the emergency for further evaluation of cough, congestion and lethargy, intially with concern for sepsis with UTI, but now found to have cholecystitis s/p drain placement. - Patient Problems (1) Cholecystitis Comment: - Surgery consult appreciated. Now s/p biliary drain with concern for acalculous cholecystitis. - Plan to continue drain for 7-10 days. - Switch to augmentin based on sensitivies for total 2 weeks antibiotics. - Patient will follow up outpatient with Dr Ca and his team (2) Afib Comment: - Resume xarelto. (3) BPH (benign prostatic hypertrophy) Comment: - Continue proscar (4) HTN (hypertension) Comment: - SBP 110-130s. - Continue metoprolol. (5) History of dementia Comment: - Continue aricept and risperdol and prozac - reports that at baseline the patient can not carry on a conversation and has advance stage dementia. (6) DVT prophylaxis Comment: - Xarelto. (7) DNR (do not resuscitate) Comment: Status and Disposition: Inpatient. Discharge to [facility].
--- NOTE | 2017-09-12 11:40 | DS ---
CC: [facility] * DATE OF ADMISSION: 09/06/2017. DATE OF DISCHARGE: 09/12/2017. ATTENDING PHYSICIAN: Dr. Chela Fox * (dictation provided by Marielle Salguero NP ). PRIMARY DIAGNOSES: 1. Acalculous cholecystitis, status post biliary drain placement. 2. Sepsis. 3. Acute kidney injury. SECONDARY DIAGNOSES: 1. Atrial fibrillation on Xarelto. 2. Dementia with Alzheimer's. 3. Hypertension. 4. BPH. 5. History of UTI's. PAST SURGICAL HISTORY: 1. Appendectomy. 2. Bowel resection. MEDICATIONS AT THE TIME OF DISCHARGE: 1. Augmentin 875 mg p.o. b.i.d. times ten days. 2. Risperdal 0.25 mg p.o. q.a.m. and 0.5 mg p.o. q.p.m. 3. Xarelto 15 mg p.o. at 1700. 4. Metoprolol 25 mg p.o. b.i.d. 5. Finasteride 5 mg p.o. daily. 6. Prozac 20 mg p.o. q.a.m. 7. Donepezil 10 mg p.o. daily. 8. Cyanocobalamin 1,000 mcg p.o. daily. 9. Tylenol 650 mg p.o. q.a.m. HOSPITAL COURSE: Mr. Mcknight is an 82-year-old man with a past medical history of advanced dementia who resides at [facility] and presented to the emergency room on 09/06/2017 with concern for altered mental status, fevers, garbled speech, congestion, and hypotension. Please see the dictated history and physical from Rambo Treviño MD for complete details. In brief, the patient is a very poor historian, but information was provided by the electronic medical record and the who is at the bedside. The report was that the patient had increased lethargy, garbled speech, and congested cough. He had a fever up to 101. White blood cell count on arrival was 20.7. He was initially hypotensive with a blood pressure running in the 80s systolically. His urinalysis showed concern for an infection with 2+ white blood cells and 1+ leuk esterase. He was initially started on Ceftriaxone. He had a CT of the brain which showed no acute change. He did have some right upper quadrant tenderness on abdominal exam and his total bilirubin was very slightly elevated at 1.10, but the remainder of his LFT's were normal. He had a slight kidney injury with BUN 31 and creatinine 1.31. Mr. Mcknight was admitted to the hospital initially with concern for urinary tract infection causing sepsis. He was treated with Ceftriaxone. Because of the right upper quadrant pain, there was concern that perhaps he had cholecystitis. He had a gallbladder ultrasound which showed the following: "Mildly distended gallbladder with gallbladder wall thickening; common duct is not dilated; limited evaluation of the gallbladder with no obvious gallstones, however the study is limited; I cannot totally exclude cholecystitis as there is a small amount of pericholecystic fluid and the patient does have a sonographic Henson sign." Because of the lack of clarity around the question of cholecystitis, the patient was seen in consultation by Dr. Ca from Surgery who recommended a HIDA scan which was read as follows: "The biliary system is poorly opacified with retention of radionuclide in the liver; this may represent diffuse hepatocellular failure; no reflux into the gallbladder is identified." Because the patient's pain and continued evidence of sepsis despite eventually a normal urine culture, it was suspected that his symptoms were all related to acalculous cholecystitis and he did go on for placement of a biliary drain on . Mr. Mcknight's biliary fluid did grow klebsiella which was essentially pansensitive. He has been treated with Zosyn and now is going to be transitioned to Augmentin to complete a 14 day course of antibiotics. He is doing well. His blood pressure is now normal. The remainder of this vital signs are also normal. His labs are unremarkable. Mr. Mcknight is medically stable for discharge back to [facility]. He will continue his biliary drain for seven to ten days. He will be following up with [facility] on 09/19/2017, an appointment has already been scheduled. In the meantime, the patient will have the biliary drain emptied, but no flushing is required. The [facility] nursing staff are asked to record the volume of output when this is drained. Mr. Mcknight is medically stable for discharge to [facility]. DISPOSITION: To [facility]. DIET: Regular. ACTIVITY: As tolerated. FOLLOW-UP PLANS: Please follow-up with Dr. Ca and his team on 09/19/2017. Approximately 60 minutes were spent in the discharge of this patient, more than half that time was spent with the patient at the bedside reviewing the events leading up to and during his hospitalization, performing the physical exam, and reviewing the plan of care. MARIELLE SALGUERO NP [id number]/[facility] #: [id number] [place]
== END 2017-09-12 12:05 | DRG 872 ==
LOC: ED 11:46 → MED 14:23
PROVIDERS: ADMIT Internal Medicine; ATTEND Internal Medicine
PROC: 0F9430Z Drainage of Gallbladder with Drainage Device, Percutaneous Approach (ICD-10-PCS; principal; 2017-09-10)
DX: A41.9 Sepsis, unspecified organism (principal); K81.0 Acute cholecystitis; N17.9 Acute kidney failure, unspecified; N39.0 Urinary tract infection, site not specified; I48.91 Unspecified atrial fibrillation; H91.90 Unspecified hearing loss, unspecified ear; Z66 Do not resuscitate; G30.9 Alzheimer's disease, unspecified; F02.80 Dementia in other diseases classified elsewhere, unspecified severity, without behavioral disturbance, psychotic disturbance, mood disturbance, and anxiety; I10 Essential (primary) hypertension; N40.0 Benign prostatic hyperplasia without lower urinary tract symptoms; Z87.440 Personal history of urinary (tract) infections; Z90.49 Acquired absence of other specified parts of digestive tract; Z79.01 Long term (current) use of anticoagulants; Z80.9 Family history of malignant neoplasm, unspecified; Z87.891 Personal history of nicotine dependence
CPT/HCPCS: 36415; 47490; 70450; 71045; 76705; 78226; 80048; 80053; 80076; 81003; 81015; 83605; 83735; 84484; 85025; 85060; 85610; 85730; 86850; 86900; 86901; 87040; 87077; 87086; 87186; 87205; 88112; 93005; 99284; A9270-GY; A9537; G8996-GN-CK; G8997-GN-CI; J0696; J2543; J3010; Q9967

== ENCOUNTER 2018-12-19 10:28 | Emergency (ER) | payer MEDICARE, BC, MEDICAID ==
--- NOTE | 2018-12-19 10:46 | ED ---
Head Injury - HPI Summary HPI Summary: This pt is an 83v Y/O M brought in by EMS to [facility] from a snf for a witnessed fall that occurred [employer]OPMENT [employer]AD. The pt fell and hit the R side of his face on the ground and suffered abrasions on his R elbow and his R upper lip. This pt is a DNR and is presenting to [facility] with his MOLST and DNR paperwork. The pt states that he is not currently in pain. Per EMS the pt did not have any seizure symptoms pre or post fall. He has a PMHx of dementia, HTN, and is currently on Xarleto. THIS PT IS A LEVEL 5 CAVEAT DUE TO HIS HX OF DEMENTIA AND BASELINE MENTAL STATUS. Per EMS the pt has chronic bruises on both his arms. - History Of Current Complaint Chief Complaint: EDFall Stated Complaint: FALL PER EMS Time Seen by Provider: 12/19/18 10:29 Hx Obtained From: EMS Hx From Patient Unobtainable Due To: Dementia Mechanism Of Injury: Fall From Height Of: Onset/Duration: Started Minutes Ago - DEVELOPMENT LEAD Severity Currently: None Pain Intensity: 0 Pain Scale Used: 0-10 Numeric Location of Head Injury: Frontal - R facial Associated Signs And Symptoms: Negative - siezure symptoms per EMS, Bruising - bilateral chronic bruising, Other: - laceration to R upper lip, abrasion to his R elbow Anticoagulant Therapy: Other: - Xarelto - Allergies/Home Medications Allergies/Adverse Reactions: Allergies Allergy/AdvReac Type Severity Reaction Status Date / Time No Known Allergies Allergy Verified 11/12/16 17:19 PMH/Surg Hx/FS Hx/Imm Hx Previously Healthy: Yes Endocrine/Hematology History: Reports: Hx Anticoagulant Therapy Denies: Hx Diabetes, Hx Thyroid Disease Cardiovascular History: Reports: Hx Hypertension, Other Cardiovascular Problems/ Disorders - Afib, Denies: Hx Pacemaker/ICD Respiratory History: Denies: Hx Asthma, Hx Chronic Obstructive Pulmonary Disease (COPD), Hx Lung Cancer GI History: Reports: Other GI Disorders - HX BOWEL RESECTION Denies: Hx Gall Bladder Disease, Hx Gastrointestinal Bleed, Hx Ulcer, Hx Urosepsis History: Reports: Hx Benign Prostatic Hyperplasia Denies: Hx Kidney Stones, Hx Renal Disease Sensory History: Reports: Hx Hearing Problem - Wax in ears, pt declined debrox Denies: Hx Contacts or Glasses, Hx Hearing Aid - [facility] Opthamlomology History: Denies: Hx Contacts or Glasses Neurological History: 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 APPENDICITIS/APPENDECTOMY - Immunization History Date of Tetanus Vaccine: 2011 Immunizations Up to Date: Unable to Obtain/Confirm Infectious Disease History: No Infectious Disease History: Denies: Hx Hepatitis, Hx Human Immunodeficiency Virus (HIV), Traveled Outside the [place] in Last 30 Days - Family History Known Family History: Positive: Other - Dementia Family History: NON CONTRIBUTORY - Social History Alcohol Use: None Hx Substance Use: No Substance Use Type: Reports: None Hx Tobacco Use: Yes Smoking Status (MU): Former Smoker Review of Systems - ROS Summary Review of Systems Summary: THIS PT IS A LEVEL 5 CAVEAT DUE TO HIS BASELINE MENTAL STATUS FOR DEMENTIA. ENT: Other Skin: Other - abrasion to his R elbow Positive: Bruising - Pt has bruising on both arms, reported as normal All Other Systems Reviewed And Are Negative: No Physical Exam - Summary Physical Exam Summary: A FULL PE IS UNOBTAINABLE DUE TO THE PTS BASELINE MENTAL STATUS FROM DEMENTIA. Constitutional: Well-developed, Well-nourished, Alert. (-) Distressed Skin: Warm, Dry HENT: Normocephalic; Complex 3 cm laceration to the R upper lip, does not cross the vermilion border, no intraoral abnormalities. Eyes: Conjunctiva normal Neck: Musculoskeletal ROM normal neck. (-) JVD, (-) Stridor, (-) Tracheal deviation Cardio: Rhythm regular, rate normal, Heart sounds normal; Intact distal pulses; The pedal pulses are 2+ and symmetric. Radial pulses are 2+ and symmetric. (-) Murmur Pulmonary/Chest wall: Effort normal. (-) Respiratory distress, (-) Wheezes, (-) Rales Abd: Soft, (-) tenderness, (-) Distension, (-) Guarding, (-) Rebound Musculoskeletal: (-) Edema Lymph: (-) Cervical adenopathy Neuro: Alert, Oriented x3 Psych: Mood and affect Normal Vital Signs On Initial Exam: Initial Vitals Temp Pulse Resp BP Pulse Ox 96.5 F 66 18 115/72 95 12/19/18 10:29 12/19/18 10:29 12/19/18 10:29 12/19/18 10:29 12/19/18 10:29 Procedures - Laceration/Wound Repair 1 Location: mouth - R upper lip Description: Irregular Anesthesia: 1.0%, Lido - without epi, 3 ccs Length, Depth and Shape: 3 cm Betadine Prep?: No Laceration/Wound Explored: clean Closure: Single Layer Suture Type: Vicryl Number of Sutures: 5 Layer Closure?: Yes Diagnostics - Vital Signs Vital Signs Temp Pulse Resp BP Pulse Ox 12/19/18 10:29 96.5 F 66 18 115/72 95 - Laboratory Result Diagrams: 12/19/18 10:55 12/19/18 10:54 Lab Statement: Any lab studies that have been ordered have been reviewed, and results considered in the medical decision making process. - CT Cervical Spine CT CT Interpretation Completed By: Radiologist Summary of CT Findings: Multilevel degenerative disc disease. No definite fracture of the cervical. spine is noted. ED Physician has reviewed this report. Brain CT Interpretation Completed By: Radiologist Summary of CT Findings: No CT evidence for traumatic brain injury or other acute intracranial process. Involutional change and stigmata of chronic small vessel ischemic disease. No significant interval change. ED Physician has reviewed this report. Re-Evaluation - Re-Evaluation First Eval Re-Evaluation Time: 11:30 Change: Unchanged Comment: Pt was sleeping in bed. Pt was woken and informed that stitches had to be applied to the laceration on his R lip. Pt was agreeable to the procedure and prepping began. Head Injury Course/Dx Course Of Treatment: Patient is here with a fall on thinners. This was a witnessed event and was mechanical in nature. Patient only hit his head. Patient had negative CT head and cervical spine for fracture. Patient had repair of his lip laceration. Patient will be monitored at [facility] for possible delayed bleeding. - Diagnoses Provider Diagnoses: Accident due to mechanical fall without injury, Lip laceration, Head injury Discharge ED - Sign-Out/Discharge Documenting (check all that apply): Patient Departure - discharge - Discharge Plan Condition: Stable Disposition: [facility] Patient Education Materials: Care For Your Stitches (ED), Fall Prevention for Older Adults (ED), Head Injury (ED) Referrals: Maximo Lopez MD [Medical Doctor] - 2 Days Additional Instructions: PLEASE FOLLOW UP WITH YOUR PRIMARY CARE PROVIDER IN 2-3 DAYS AND RETURN TO THE EMERGENCY DEPARTMENT FOR ANY NEW OR WORSENING SYMPTOMS AND MONITOR THE PT FOR 24 HOURS. The stitches will fall out on their own. - Billing Disposition and Condition Condition: STABLE Disposition: Shelter Facility - Attestation Statements Document Initiated by Bret: Yes Documenting Scribe: Braden Tejeda Provider For Whom Bret is Documenting (Include Credential): Nghia Wilson MD Scribe Attestation: Braden Nazario, scribed for Nghia Wilson MD on 12/19/18 at 1219. Scribe Documentation Reviewed: Yes Provider Attestation: The documentation as recorded by the Braden vela accurately reflects the service I personally performed and the decisions made by me, Nghia Wilson MD Status of Scribe Document: Viewed
[2018-12-19] MEDS ORDERED: Lidocaine/Epineph/Tetraca GEL* 3 ML GEL IN SYR TOPICAL ONE (10:51)
[2018-12-19 11:02] LABS: ABS Basophils 0.1 10^3/ul (0-0.2); ABS Eosinophils 0.2 10^3/ul (0-0.6); ABS Lymphocytes 0.9 10^3/ul (1.0-4.8); ABS Monocytes 1.1 10^3/ul (0-0.8); ABS Neutrophils 8.6 10^3/ul (1.5-7.7); Eosinophil % 1.8 %; Hematocrit 39 % (42-52); Hemoglobin 13.1 g/dL (14.0-18.0); Lymphocyte % 7.9 %; Mean Corpuscular HGB Conc 34 g/dL (31-36); Mean Corpuscular Hemoglobin 33 pg (27-31); Mean Corpuscular Volume 99 fL (80-94); Mean Platelet Volume 7.6 fL (7.4-10.4); Platelet Count 312 10^3/uL (150-450); Red Blood Count 3.95 10^6 /uL (4.18-5.48); Red Cell Distribution Width 13 % (10-15); White Blood Count 10.8 10^3/uL (3.5-10.8)
[2018-12-19 11:06] LABS: INR 1.72 (0.82-1.09)
[2018-12-19 11:28] LABS: Albumin 3.5 g/dL (3.2-5.2); Albumin/Globulin Ratio 0.9 (1-3); BUN/Creatinine Ratio 14.1 (8-20); Calcium 9.4 mg/dL (8.6-10.3); EGFR African American 87.1 (>60); Globulin 4.1 g/dL (2-4); Potassium 4.3 mmol/L (3.5-5.0); Total Bilirubin 0.4 mg/dL (0.2-1.0); Total Protein 7.6 g/dL (6.4-8.9)
[2018-12-19] MEDS ORDERED: Lidocaine 1% MPF ** 5 ML VIAL INJ ONE (11:32)
[2018-12-19 13:42] VITALS: BP 119/89
== END 2018-12-19 13:40 ==
LOC: ED 10:28
DX: S01.511A Laceration without foreign body of lip, initial encounter (principal); W19.XXXA Unspecified fall, initial encounter; Y92.129 Unspecified place in nursing home as the place of occurrence of the external cause; M50.30 Other cervical disc degeneration, unspecified cervical region; I48.91 Unspecified atrial fibrillation; I10 Essential (primary) hypertension; F03.90 Unspecified dementia, unspecified severity, without behavioral disturbance, psychotic disturbance, mood disturbance, and anxiety; Z87.891 Personal history of nicotine dependence; Z79.01 Long term (current) use of anticoagulants; Z79.899 Other long term (current) drug therapy
CPT/HCPCS: 12013; 36415; 70450; 71045; 72125; 80053; 85025; 85610; 99285; A9270-GY

== ENCOUNTER 2019-01-22 10:28 | Inpatient (IN) | payer MEDICARE, BC, MEDICAID ==
--- NOTE | 2019-01-22 11:04 | ED ---
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 Pt lives at [facility]. Pt is hard of hearing. Pt has a swollen knuckle with ecchymosis on the right hand and a laceration on the right side of the head. Pt denies any fever, chills, erythema of eyes, sore throat, CP, SOB, cough, abdominal pain, N/V, dysuria, hematuria, rash, dizziness, or neck pain. Pt has a PMHx of UTI, dementia, and AFib. Per medical records, pt ambulates. Pt is somewhat responsive to questions asked in room. - History of Current Complaint Chief Complaint: EDFall Stated Complaint: HEAD LAC PER EMS Time Seen by Provider: 01/22/19 10:49 Hx Obtained From: Patient, Medical Records Hx From Patient Unobtainable Due To: Dementia Mechanism of Injury: Fall - From sitting position Loss of Consciousness: no loss of consciousness Onset/Duration: Traumatic, Still Present Onset of Pain: Prior to Arrival Onset Severity: Mild Current Severity: Mild Pain Intensity: 0 Pain Scale Used: 0-10 Numeric Location: Head, Other - Right hand Aggravating Factor(s): Nothing Alleviating Factor(s): Nothing Associated Signs & Symptoms: Positive: Ecchymosis - right hand, Other: - Negative neck pain, dysuria, erythema of eyes, chills, sore throat, edema, rash , or dizziness.. Negative: SOB, Chest Pain, Cough, Hematuria, Abdominal Pain, Fever, Nausea/Vomiting - Additional Pertinent History Primary Care Physician: FRANCIS - Allergy/Home Medications Allergies/Adverse Reactions: Allergies Allergy/AdvReac Type Severity Reaction Status Date / Time No Known Allergies Allergy Verified 01/22/19 10:47 Home Medications: Home Medications guaiFENesin ER TAB [Mucinex*] 600 mg PO BID 01/22/19 [History Confirmed 01/22/19 ] PMH/Surg Hx/FS Hx/Imm Hx Previously Healthy: Yes Endocrine/Hematology History: Reports: Hx Anticoagulant Therapy Denies: Hx Diabetes, Hx Thyroid Disease Cardiovascular History: Reports: Hx Hypertension, Other Cardiovascular Problems/ Disorders - Afib, Denies: Hx Pacemaker/ICD Respiratory History: Denies: Hx Asthma, Hx Chronic Obstructive Pulmonary Disease (COPD), Hx Lung Cancer GI History: Reports: Other GI Disorders - HX BOWEL RESECTION Denies: Hx Gall Bladder Disease, Hx Gastrointestinal Bleed, Hx Ulcer, Hx Urosepsis History: Reports: Hx Benign Prostatic Hyperplasia, Other Problems/ Disorders - UTI Denies: Hx Kidney Stones, Hx Renal Disease Sensory History: Reports: Hx Hearing Problem - Wax in ears, pt declined debrox Denies: Hx Contacts or Glasses, Hx Hearing Aid - [place] [facility] History: Denies: Hx Contacts or Glasses Neurological History: Reports: Hx Dementia - ALZHEIMERS Denies: Hx Migraine, Hx Seizures, Hx Transient Ischemic Attacks (TIA) Psychiatric History: Denies: Hx Anxiety, Hx Depression, Hx Panic Disorder, Hx Schizophrenia, Hx Bipolar Disorder - Surgical History Surgical History: Yes Surgery Procedure, Year, and Place: abd surgery - OBSTRUCTION IN BOWEL RESECTION - 3 years ago [facility] (non cancer). APPENDICITIS/APPENDECTOMY - Immunization History Date of Tetanus Vaccine: 2011 Immunizations Up to Date: Unable to Obtain/Confirm Infectious Disease History: No Infectious Disease History: Denies: Hx Hepatitis, Hx Human Immunodeficiency Virus (HIV), Traveled Outside the [place] in Last 30 Days - Family History Known Family History: Positive: Other - Dementia Family History: NON CONTRIBUTORY - Social History Alcohol Use: None Hx Substance Use: No Substance Use Type: Reports: None Hx Tobacco Use: Yes Smoking Status (MU): Former Smoker Review of Systems Negative: Fever, Chills Negative: Erythema Negative: Sore Throat Negative: Chest Pain Negative: Shortness Of Breath, Cough Negative: Abdominal Pain, Vomiting, Nausea Negative: dysuria, hematuria Positive: Edema - Knuckle of right hand. Negative: Myalgia - Neck Positive: Other - swollen knuckle with ecchymosis on right hand, laceration on right side of head. Negative: Rash Neurological: Other - Negative dizziness All Other Systems Reviewed And Are Negative: Yes Physical Exam - Summary Physical Exam Summary: Constitutional: Well-developed, Well-nourished, Alert, Cooperative. Responds to verbal stimulus. Skin: Warm, Dry. HENT: Normocephalic; No Racoons eyes; No stevens's sign; No abrasion; No contusion; No hemotympanum; No maxilla facial tenderness or instability; Dentition are smooth; No dental trauma; No trismus. Abrasion over proximal phalanx of 5th finger has an abrasion. Ecchymosis over metacarpal of same finger ; stellate shaped laceration of 4 cm just above right lateral eyebrow Eyes: EOM normal, PERRL Neck: Trachea is midline. No stridor; No JVD; No step off; No posterior cervical spine tenderness Cardio: Rhythm regular, rate normal Heart sounds normal; Intact distal pulses; The pedal pulses are 2+ and symmetric. Radial pulses are 2+ and symmetric. Pulmonary/Chest wall: Effort normal; Breath sounds normal; Equal chest rise; No flail segment; No rib tenderness; No sternal tenderness Abd: Soft, Appearance normal. No distension; No tenderness; No palpable pulsatile mass; No Cullens sign; No Glynn-Turners sign Musculoskeletal: Full ROM and no tenderness at hips, ankles, shoulders, elbows and knees; No joint swelling; No vertebral body tenderness; No paraspinal tenderness; No step off or deformity of the spine; Pelvis is stable to lateral compression and rock Neuro: Alert, Oriented x3, Strength 5/5 all extremities. : No blood at urethral meatus Psych: Mood and affect Normal Triage Information Reviewed: Yes Vital Signs On Initial Exam: Initial Vitals Temp Pulse Resp BP Pulse Ox 97.5 F 90 20 123/84 96 01/22/19 10:39 01/22/19 10:39 01/22/19 10:39 01/22/19 10:39 01/22/19 10:39 Vital Signs Reviewed: Yes Procedures - Sedation Patient Received Moderate/Deep Sedation with Procedure: No - Laceration/Wound Repair 1 Location: head, upper extremity - 3 in ultraglass and ulner gutter configuration , 20 cm in length. 8 sutures of 4-0 Ethilon. Anesthesia: Lido Number of Sutures: 8 Diagnostics - Vital Signs Vital Signs Temp Pulse Resp BP Pulse Ox 01/22/19 10:39 97.5 F 90 20 123/84 96 - Laboratory Result Diagrams: 01/23/19 08:10 01/24/19 05:26 Lab Statement: Any lab studies that have been ordered have been reviewed, and results considered in the medical decision making process. - Radiology Hand X-ray Radiology Interpretation Completed By: Radiologist Summary of Radiographic Findings: Hand x-ray IMPRESSION: #. Probable mildly impacted fracture at the distal metaphysis of the fifth metacarpal with. overlying soft tissue swelling. Reviewed by ED physician. Chest X-ray Radiology Interpretation Completed By: Radiologist Summary of Radiographic Findings: Chest x-ray IMPRESSION: NO ACTIVE CARDIOPULMONARY DISEASE. Reviewed by ED physician. - CT Brain CT CT Interpretation Completed By: Radiologist Summary of CT Findings: Brain CT IMPRESSION: NO EVIDENCE FOR ACUTE INTRACRANIAL ABNORMALITY. Reviewed by ED physician. Cervical Spine CT CT Interpretation Completed By: Radiologist Summary of CT Findings: Cervical spine CT IMPRESSION: #. Mild acute compression fracture involving the superior endplate of the C7 vertebral. body with only minimal loss of height at the anterior margin. #. Acute mild anterior column compression fractures involving the superior endplates of. the T1 and T2 vertebral bodies without significant loss of height. #. Acute axial oriented fracture through the C6 spinous process fracture with only mild. displacement. #. Negative for facet subluxation at any level. Reviewed by ED physician. Thoracic Spine CT CT Interpretation Completed By: Radiologist Summary of CT Findings: Thoracic Spine CT IMPRESSION: 1. Multilevel degenerative changes of the thoracic and lumbar spine without. radiographically apparent acute fracture or dislocation. 2. Additional degenerative changes are noted separate from spine findings. Reviewed by ED physician. Lumbar Spine CT CT Interpretation Completed By: Radiologist Summary of CT Findings: Lumbar Spine CT IMPRESSION: 1. Multilevel degenerative changes of the thoracic and lumbar spine without. radiographically apparent acute fracture or dislocation. 2. Additional degenerative changes are noted separate from spine findings. Reviewed by ED physician. 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 Pt is hard of hearing. Pt has a swollen knuckle with ecchymosis on the right hand and a laceration on the right side of the head. Pt denies any fever, chills, erythema of eyes, sore throat, CP , SOB, cough, abdominal pain, N/V, dysuria, hematuria, rash, dizziness, or neck pain. Pt has a PMHx of UTI, dementia, and AFib. Per medical records, pt ambulates. Pt is somewhat responsive to questions asked in room. On exam, pt has an abrasion over proximal phalanx of 5th finger has an abrasion. Ecchymosis over metacarpal of same finger; stellate shaped laceration of 4 cm just above right lateral eyebrow; responds to verbal stimulus. Laboratory abnormal findings: RBC 3.74, Hgb 12.5, Hct 37, MCV 99, MCH 33, Glucose 144, AST 83, ALT 129, Alkaline Phosphatase 289, globulin 4.1, albumin, globulin ratio 0.8. Hand x-ray IMPRESSION: #. Probable mildly impacted fracture at the distal metaphysis of the fifth metacarpal with. overlying soft tissue swelling. Chest x-ray IMPRESSION: NO ACTIVE CARDIOPULMONARY DISEASE. Brain CT IMPRESSION : NO EVIDENCE FOR ACUTE INTRACRANIAL ABNORMALITY. Cervical spine CT IMPRESSION : #. Mild acute compression fracture involving the superior endplate of the C7 vertebral. body with only minimal loss of height at the anterior margin. #. Acute mild anterior column compression fractures involving the superior endplates of. the T1 and T2 vertebral bodies without significant loss of height. #. Acute axial oriented fracture through the C6 spinous process fracture with only mild. displacement. #. Negative for facet subluxation at any level. Thoracic Spine CT IMPRESSION: 1. Multilevel degenerative changes of the thoracic and lumbar spine without. radiographically apparent acute fracture or dislocation. 2. Additional degenerative changes are noted separate from spine findings. Lumbar Spine CT IMPRESSION: 1. Multilevel degenerative changes of the thoracic and lumbar spine without. radiographically apparent acute fracture or dislocation. 2. Additional degenerative changes are noted separate from spine findings. In the ED course, pt was given lidocaine 2% 20 ml INJ. Suture/split: 3 in ultraglass and ulner gutter configuration, 20 cm in length. 8 sutures of 4-0 Ethilon. At 15:41, pt discussed with Dr. Sepulveda who recommends placing a [place] J-collar, CT with thoracic and lumbar spine. Keep [place] J-collar on until CT complete. Pt will be admitted to [facility]. - Diagnoses Provider Diagnoses: C6 cervical fracture, Fracture of metacarpal of right hand, closed, Laceration of skin of face - Physician Notifications Discussed Care Of Patient With: Tennille Sepulveda - At 15:41, pt discussed with Dr. Sepulveda who recommends placing a [place] J-collar, CT with thoracic and lumbar spine. Keep [place] J-collar on until CT complete. Time Discussed With Above Provider: 15:41 Discharge ED - Sign-Out/Discharge Documenting (check all that apply): Patient Departure - Discharge Plan Condition: Improved Disposition: ADMITTED TO [facility] - Billing Disposition and Condition Condition: IMPROVED Disposition: Admitted to [facility] - Attestation Statements Document Initiated by Scribe: Yes Documenting Scribe: Monica Joy Provider For Whom Scribe is Documenting (Include Credential): Grant Akers MD Scribe Attestation: Monica Nazario, scribed for Grant Akers MD on 02/09/19 at 1039. Scribe Documentation Reviewed: Yes Provider Attestation: The documentation as recorded by the Monica vela accurately reflects the service I personally performed and the decisions made by me, Grant Akers MD Status of Scribe Document: Viewed
[2019-01-22 11:30] LABS: Hematocrit 37 % (42-52); Hemoglobin 12.5 g/dL (14.0-18.0); Mean Corpuscular HGB Conc 34 g/dL (31-36); Mean Corpuscular Hemoglobin 33 pg (27-31); Mean Corpuscular Volume 99 fL (80-94); Mean Platelet Volume 7.8 fL (7.4-10.4); Platelet Count 375 10^3/uL (150-450); Red Blood Count 3.74 10^6 /uL (4.18-5.48); Red Cell Distribution Width 13 % (10-15); White Blood Count 8.5 10^3/uL (3.5-10.8)
[2019-01-22 11:46] LABS: Albumin 3.4 g/dL (3.2-5.2); Albumin/Globulin Ratio 0.8 (1-3); Calcium 8.8 mg/dL (8.6-10.3); EGFR African American 81.2 (>60); EGFR Non-African American 67.1 (>60); Globulin 4.1 g/dL (2-4); Potassium 4.1 mmol/L (3.5-5.0); Total Bilirubin 0.6 mg/dL (0.2-1.0); Total Protein 7.5 g/dL (6.4-8.9)
[2019-01-22] MEDS ORDERED: Lidocaine 2% w/ EPI 1:200,000* 20 ML SDV VIAL INJ ONE (12:48)
[2019-01-22] MEDS ORDERED: Acetaminophen TAB* 325 MG PO PRN (17:21)
[2019-01-22] MEDS ORDERED: Magnesium Hydroxide LIQ* 30 ML UDC PO PRN (17:21)
[2019-01-22] MEDS ORDERED: Ondansetron INJ* 2 MG/ML VIAL IV PRN (17:21)
[2019-01-22] MEDS ORDERED: oxyCODONE/Acetamin 5/325 MG* TAB PO PRN (17:21)
[2019-01-22] MEDS ORDERED: Albuterol 2.5 MG/3 ML NEB.SOL* (0.083%) INH PRN (17:29)
[2019-01-22] MEDS ORDERED: Morphine 4 MG/ML VIAL (1 ml) 4 MG/ML VIAL IV ONE (17:31)
--- NOTE | 2019-01-22 20:21 | HP ---
CC: Attending at [facility] [place] * ADMISSION HISTORY AND PHYSICAL: DATE OF ADMISSION: 01/22/19 PRIMARY CARE PROVIDER: Attending at [facility] [place] ATTENDING FOR THIS ADMISSION: Dr. Niecy Guthrie.* (DICTATED BY HORACE CALIXTO NP) CHIEF COMPLAINT: Fall out of the chair at [facility] [place] prior to arrival. HISTORY OF PRESENT ILLNESS: Mr. 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 The patient arrived with a laceration on the right parietal region of his head and also with a swollen hand and ecchymosis and some pain. The patient was able to state that he did not have any other complaints, other than the pain in his hand and his head. However, he is not a reliable historian because of his advanced dementia. His daughter who is at the bedside; her name is Monica Waldrop , stated that she does think that her father is in pain just based on his current behavior. He is otherwise able to communicate his needs at a rudimentary level, but she has noticed that he has been having some more falls and difficulty with transfers of late. In the emergency department, he did receive imaging of his head and spine. A brain CT did not show any acute bleeding. It should be noted that the patient is on anticoagulation with Xarelto for history of paroxysmal AFib, but there was no bleeding noted in the brain. He does, however, have new compression fractures of the C-spine and thoracic spine. He also has mildly impacted fracture of the distal metastasis of the fifth metacarpal on the right hand with some soft tissue swelling. For these reasons, hospitalists were requested to evaluate the patient for admission. PAST MEDICAL HISTORY: 1. Paroxysmal atrial fibrillation, on anticoagulation. 2. Chronic dysphagia. 3. Falls. 4. Dementia. 5. Chronic urinary tract infection. 6. Hypothyroidism. MEDICATIONS: At home include: 1. Guaifenesin. 2. Xarelto 15 mg daily. 3. Metoprolol 25 mg daily. 4. Claritin 10 mg daily. 5. Paxil 30 mg daily. 6. Synthroid 25 mcg daily. FAMILY HISTORY: Noncontributory. SOCIAL HISTORY: The patient has a very remote history of smoking some 60 years ago. Daughter states that the patient does not drink alcohol and has no history of drug use. His is still alive, also has dementia. He has a daughter and 3 sons. His daughter, Monica Waldrop, is the point of contact and can be reached at [phone]. CODE STATUS: The patient is a DNR and do not intubate. He requests limited interventions based on his MOLST form. REVIEW OF SYSTEMS: Unreliable based on dementia. He does have a cough, which is chronic per his daughter. His daughter also states that he does appear to be in pain given his behaviors at the time of admission. PHYSICAL EXAMINATION GENERAL: Reveals an older gentleman in a moderate amount of distress. VITAL SIGNS: Blood pressure 114/80, heart rate 96, O2 saturation is 96% on room air with a temperature of 97.5. HEENT: The patient is normocephalic. He has a laceration to the right parietal region. Wound has been approximated and sutured. There is some crusting and bloody drainage around the laceration site, some ecchymosis and tenderness upon palpation. NECK: He is currently in a [place] J-collar. He does not express tenderness over the posterior neck and into the collarbones. There is no thyromegaly appreciated. CHEST: His chest is benign. LUNGS: Lungs are clear bilaterally to auscultation with some scattered rhonchi that clear with cough. He is clear at the apices to auscultation. He has some scattered rhonchi that do clear with cough. No rales noted and no wheezing. CARDIOVASCULAR: S1, S2 present. Rate is irregular. He has atrial fibrillation on the monitor. No murmurs, gallops, or rubs noted. ABDOMEN: Soft, nontender, nondistended. Positive bowel sounds in 4 quadrants. : Deferred. MUSCULOSKELETAL: There is no clubbing, no cyanosis, and no edema. He does have what appears to be some fungal infection around the toenails. NEUROLOGIC: He is confused at baseline. He is not following commands, but he is able to answer some questions appropriately in terms of if he has pain. He does respond to his name and he does recognize his daughter. PSYCHIATRIC: He is confused, but cooperative and otherwise appropriate. DIAGNOSTIC STUDIES/LAB DATA: Laboratories: WBCs 8.5, RBCs 3.74, hemoglobin 12.5, hematocrit 37, platelets 375. Sodium 136, potassium 4.1, chloride 104, CO2 of 26, BUN 21, creatinine 1.05, GFR 67.1, glucose 144, lactic acid 1.5, calcium 8.8. Total bilirubin 0.60, AST 83, ALT 129, alk phos 289. Total protein 7.5, globulin 4.1, albumin to globulin ratio is 0.8. Imaging: Brain CT dated 01/22/19 shows no evidence for any acute intracranial abnormality. No hemorrhage noted. CT of the cervical spine also dated 01/22/19 shows a mild acute compression fracture involving the superior endplate of the C7 vertebral body with only minimal loss of height at the anterior margin. Acute mild anterior column compression fractures involving the superior endplates of T1 and T2 vertebral bodies without significant loss of height. Acute axial oriented fractures through the C6 spinous process fracture with only mild displacement. Negative for facet subluxation at any level. IMPRESSION: Mr. Mcknight is an 84-year-old male patient with history of dementia, paroxysmal atrial fibrillation, hypothyroidism, and dysphagia who presents in the emergency department today with a fall and was found to have acute compression fractures of the cervical and thoracic spine. PLAN: The patient has been admitted to inpatient. DIAGNOSES: 1. Acute compression fractures of the cervical and thoracic spine. Neurosurgery has already been consulted and has been at the bedside to evaluate the patient. The patient has already been sent for imaging of the lumbar spine as well to ensure that there are no additional fractures. At this point, the patient has been placed in a [place] J-collar. He is not on any further restrictions in terms of bedrest. He can be out of bed to chair; however, he will need additional imaging likely tomorrow. Films will be reviewed by Dr. Sepulveda as well. For pain control, he has been given some morphine in the emergency department. He can also have Percocet or Tylenol as needed. 2. History of dementia. The patient is on Paxil. He is currently pleasantly demented and is not exhibiting any agitation. He will be continued on his Paxil and he will be given supportive care. 3. History of paroxysmal atrial fibrillation. His rate is currently irregular , but is not exhibiting any rapid ventricular response. We will continue him on his metoprolol 25 and on his Xarelto. Again, he is not exhibiting any bleeding on the CAT scan of the brain and he is not currently at high risk for this. 4. Fracture of the fifth metatarsal. The patient has already been splinted in the emergency department. We will contact orthopedics in the morning to further evaluate this fracture and see if there is any further intervention required in terms of casting or other orthopedic treatment that would be necessary. 5. History of dysphagia. The patient had recently had a barium swallow. He is on a modified diet of puree and pudding thick liquids. This will be continued. We also recommended that the patient sit upright at 90 degrees, especially since now he is in the [place] J-collar. He is very high risk for aspiration. He is also on guaifenesin daily for his loose cough. This will be continued. I have evaluated his chest x-ray. He does not appear to have any consolidation or any infiltration into the right upper lobe, which would indicate that he has had any further aspiration. Although he does have loose cough, it does not appear that he has aspirated during this event. I will place him on p.r.n. albuterol in case the patient does have any wheezing or any further respiratory issues, but currently his O2 saturation is adequate. 6. For DVT prophylaxis, the patient is already on Xarelto. This will be continued. 7. Diet. As above. 8. Activity. Out of bed to chair with [place] J-collar at all times. 9. Code status. DNR. The rest of the patient's course will be determined by further diagnostics, laboratories, and any other input from other providers as warranted during this admission. TIME SPENT: Seventy minutes on admission planning, 60% of the time was spent at the bedside with the patient and his daughter developing admission plan of care. HORACE CALIXTO NP [id number]/[facility] #: [id number] [place]
[2019-01-22] MEDS: Rivaroxaban TAB(*) 15 MG PO SCH (20:36)
--- NOTE | 2019-01-22 21:03 | CONS ---
CONSULTATION REPORT: DATE OF CONSULT: 01/22/19 HISTORY OF PRESENT ILLNESS: This is an 84-year-old male with history of dementia, hypothyroidism and AFib, currently residing at [facility]. Followup in the emergency room department status post mechanical fall from a chair, sustained a laceration on the right side of the face, a little lateral to the right eyebrow. The patient had subsequent scans done of the head, cervical spine, thoracic spine, which revealed a small C6 spinous process fracture and a mild compression fracture of the anterior plate of the C7 vertebral body on the CT scan as well as a T1 and T2 anterior mild compression fractures as well. The patient has very limited verbal capacity. His daughter is at bedside giving history. She reports being called earlier this morning from the [facility] staff staying that her father had fell from a chair. It is not confirmed if the patient lost consciousness or not. The patient was brought over to the emergency department of [facility]. Neurosurgery was called to evaluate the patient. Daughter states that the patient does not have issues with urinary or bowel incontinence. He has had history of reoccurring UTI symptoms. PAST MEDICAL HISTORY: Dementia, hypothyroidism, AFib. PAST SURGICAL HISTORY: Appendectomy in his 20s, small bowel obstruction surgery 8 years ago at [facility]. HOME MEDICATIONS: 1. Tylenol extra strength 1000 mg twice a day. 2. Levothyroxine 25 mcg p.o. daily. 3. Xarelto 15 mg p.o. daily. 4. Lopressor 25 mg p.o. b.i.d. 5. Paxil 30 mg p.o. daily. 6. Claritin 10 mg p.o. q.a.m. 7. Mucinex 600 mg p.o. b.i.d. SOCIAL HISTORY: Substance use, none. Tobacco use, currently is a tobacco user. OBJECTIVE: Vital Signs: Heart rate ranges from 96-126, respiratory rate 18-17 , blood pressure systolic 114/130, diastolic 80-90. Very limited physical exam. The patient is alert and oriented to name. He is hard of hearing and does not respond to verbal commands. He is very limited with verbal communication. Moves all extremities. Currently is lying flat on a stretcher with a [place] J collar on. IMAGING: CT scan of the brain completed on 01/22/19, normal exam, no acute injury noted, no midline shift. CT scan of the cervical spine, moderate degenerative changes, acute injury to the anterior plate of the C7 vertebral body, small superior end-plate fracture, small nondisplaced C6 spinous process fracture. CT scan of thoracic spine, mild compression fractures of the anterior plates of T1 and T2. ASSESSMENT: An 84-year-old male status post mechanical fall at [facility]. The patient has possible acute fracture of the C7 anterior plate as well as C6 spinous process fracture and compression fractures of T1 and T2. Currently, the patient has limited response due to his dementia. PLAN: We will recommend MRIs of the cervical spine as well as the thoracic spine and getting either a CT scan or x-ray of the lumbar spine to evaluate for damages. The patient will need a [place] J collar for cervical spine fractures, also will need TLSO brace for thoracic spine fractures. We will review imaging and we will possibly recommend TLSO brace and have patient do upright standing x -rays with brace on as well as upright x-rays of the cervical spine with collar on. We will discuss this case further with Dr. Sepulveda. CAROL VALENTIN, GENE [id number]/[facility] #: [id number] [place]
[2019-01-22] MEDS: Metoprolol Tartrate TAB* 25 MG PO SCH (21:54)
[2019-01-22] MEDS: guaiFENesin ER TAB 600 MG PO SCH (21:54)
--- NOTE | 2019-01-22 23:20 | PN ---
Progress Note - Progress Note Date of Service: 01/22/19 Note: Patient seen and examined. Please see consultation note from GENE Borjas. Patient reported to have sustained a fall in [place] CT c spine reveals C7, T1, T2 anterior fracture with C6 sp fracture, suspicion for 3 column injury. Patient resting comfortably. Opens eyes to verbal, Not verbal. BRIGIDA, Face symmetric Maria Guadalupe spontaneously. RUE in splint for fracture Sensory: withdraws to painful with all extremities Plan: Bed rest, Spine precautions, HOB 30' MJ collar MRI of c spine. Patient on Xartelto. Appreciate IM care. Diana Sepulveda MD
[2019-01-23] MEDS ORDERED: Levothyroxine TAB* 25 MCG TAB PO SCH (06:00)
--- NOTE | 2019-01-23 08:06 | PN ---
Progress Note - Progress Note Date of Service: 01/23/19 Note: Reviewed Lumbar spine MRI does no acute injury seen, also reviewed thoracic spine CT, read radiology report does not appear to be any acute injury to thoracic spine, previous report document possible mild superior endplate injury to T1, T2. At this time will consider following up with radiology. This morning patient was was sleep, he did open his eye briefly, but was no verbal and did not follow commands.
[2019-01-23 08:18] LABS: ABS Eosinophils 0.1 10^3/ul (0-0.6); ABS Neutrophils 5.9 10^3/ul (1.5-7.7); Eosinophil % 0.8 %; Hematocrit 36 % (42-52); Hemoglobin 12.1 g/dL (14.0-18.0); Lymphocyte % 12.5 %; Mean Corpuscular HGB Conc 34 g/dL (31-36); Mean Corpuscular Hemoglobin 35 pg (27-31); Mean Corpuscular Volume 101 fL (80-94); Mean Platelet Volume 7.7 fL (7.4-10.4); Nucleated Red Blood Cells % 0.1; Platelet Count 249 10^3/uL (150-450); Red Blood Count 3.52 10^6 /uL (4.18-5.48); Red Cell Distribution Width 14 % (10-15)
[2019-01-23 08:43] LABS: BUN/Creatinine Ratio 18.9 (8-20); Calcium 9.1 mg/dL (8.6-10.3); EGFR African American 91.2 (>60); EGFR Non-African American 75.3 (>60); Potassium 4.4 mmol/L (3.5-5.0)
[2019-01-23] MEDS: Metoprolol Tartrate TAB* 25 MG PO SCH (10:24)
[2019-01-23] MEDS: PARoxetine HCL TAB* 10 MG PO SCH (10:24)
[2019-01-23] MEDS: guaiFENesin ER TAB 600 MG PO SCH (10:29)
[2019-01-23] MEDS: Cetirizine* 10 MG TAB PO SCH (10:29)
[2019-01-23 14:02] LABS: Urine Appearance Clear; Urine Bacteria Absent (Absent); Urine Bilirubin Negative (Negative); Urine Blood 1+ (Negative); Urine Color Yellow; Urine Glucose Negative (Negative); Urine Ketones Negative (Negative); Urine Nitrite Negative (Negative); Urine Protein Negative (Negative); Urine Red Blood Cell 2+(6-10/hpf) (Absent); Urine Specific Gravity 1.014 (1.010-1.030); Urine Squamous Epithelial Cell Present (Absent); Urine Urobilinogen Negative (Negative); Urine White Blood Cell Trace(0-5/hpf) (Absent)
--- NOTE | 2019-01-23 14:17 | CONS ---
AMENDED REPORT NOW INCLUDES DATE OF CONSULT ORTHOPEDIC CONSULT NOTE: DATE OF CONSULT: 01/23/19 ATTENDING PHYSICIAN: Dr. Niecy Guthrie. CHIEF COMPLAINT: Fall out of chair at [facility] with pain in the right hand. HISTORY OF PRESENT ILLNESS: Mr. Mcknight is an 84-year-old male with a history of dementia, who resides at [facility]. He was brought into the emergency room on 01/22/19 after a [facility]. He suffered a laceration to the right parietal region of his head and although an unreliable historian, complained of pain in his right hand as well. There is no prior history of injury to this hand. X-rays were performed and showed a fracture of the head of the fifth metacarpal, CT of the brain did not show acute bleeding, and we were asked to assess the patient for his hand complaint. PAST MEDICAL HISTORY: Paroxysmal atrial fibrillation, chronic dysphagia, dementia, history of falls, chronic recurrent urinary tract infections, hypothyroidism. PAST SURGICAL HISTORY: None. CURRENT MEDICATIONS: 1. Guaifenesin. 2. Xarelto 15 mg daily. 3. Metoprolol 25 mg daily. 4. Claritin 10 mg daily. 5. Paxil 30 mg daily. 6. Synthroid 25 mcg daily. ALLERGIES: None. FAMILY HISTORY: Negative for heart disease, diabetes, or cancer. SOCIAL HISTORY: Remote history of smoking 60 years ago. He does not consume alcohol or use recreational drugs. He is demented. Although his is still alive, she has dementia as well. He has a daughter and 3 sons. His daughter, Monica Dunn, is his point of contact at [phone]. REVIEW OF SYSTEMS: Fourteen systems are reviewed with the patient, but due to dementia and his unreliability, he complains of right hand pain, but no other complaints are reported. PHYSICAL EXAM: Vital Signs: Blood pressure 114/80, pulse 96, O2 saturation 96 % on room air with a temperature of 97.5. In general, he is a well-developed, elderly gentleman, resting comfortably in bed. HEENT: Normocephalic, atraumatic. Hearing and vision are grossly intact, with extraocular movements intact. A dressing is applied to the right parietal region of the forehead. The dressing is clean, dry, and intact. Neck: The trachea is midline and symmetrical. He is currently in a [place] J-collar for stabilization. Chest: No labored breathing. Cardio: Regular rate and rhythm. Abdomen: Soft, nontender. Musculoskeletal: The right upper extremity is dressed in an ulnar gutter splint. Digits are visible. They are warm and dry with brisk capillary refill. The patient will not follow verbal commands to move the digits. He seems uncomfortable when I moved the hand, although this could be his normal state. He moves the right elbow freely and without apparent discomfort. IMAGING: AP and lateral views of the right hand are reviewed. There is a minimally displaced angulated fracture of the head of the fifth metacarpal. No other acute bony abnormalities are appreciated. IMPRESSION: Right fifth metacarpal fracture. PLAN: The ulnar gutter splint appears appropriately placed; therefore, the patient can continue with immobilization, a sling for comfort as needed. He can follow up with Orthopedics 10 to 14 days after discharge. GENE KOVACS [id number]/[facility] #: [id number] MTDLaureano
--- NOTE | 2019-01-23 17:52 | PN ---
Subjective Date of Service: 01/23/19 Interval History: Admitted yesterday after fall. No acute events overnight. NSGY evaluated patient and recommends to remain in MJ collar pending MRI c- spine. Bedrest with HOB < 30 deg, but family unlikely to want surgical intervention. Will further clarify after imaging. Patient appears comfortable but does not verbalize nor follow commands. UPDATE after 6:30: Talked to daughter (LETICIA MEREDITH [phone]) who states that her and her brothers would be interested in pursuing palliative care for their father. They think the risks of surgery outweigh the benefits. MRI is still pending. Unclear if hospice consult available on weekend. May be interested in pursing SNF with hospice. Objective Active Medications: Acetaminophen (Tylenol Tab*) 975 mg PO Q8H PRN PRN Reason: MILD PAIN or TEMP > 100.4 Albuterol (Ventolin 2.5 Mg/3 Ml Neb.Desiree*) 2.5 mg INH Q6H PRN PRN Reason: SOB/WHEEZING Cetirizine HCl (Zyrtec*) 10 mg PO QAM [facility] Last Admin: 01/23/19 10:29 Dose: Not Given Magnesium Hydroxide (Milk Of Magnesia Liq*) 30 ml PO Q4H PRN PRN Reason: CONSTIPATION Metoprolol Succinate (Toprol Xl Tab*) 50 mg PO BEDTIME [facility] Ondansetron HCl (Zofran Inj*) 4 mg IV Q4H PRN PRN Reason: NAUSEA/VOMITING Oxycodone HCl (Roxycodone Tab*) 5 mg PO Q6H PRN PRN Reason: Pain - Mod to Severe Paroxetine HCl (Paxil Tab*) 30 mg PO DAILY [facility] Last Admin: 01/23/19 10:24 Dose: 30 mg Rivaroxaban (Xarelto(*)) 15 mg PO 1930 [facility] Last Admin: 01/22/19 20:36 Dose: 15 mg Vital Signs - 8 hr 01/23/19 12:25 Temperature 99.2 F Pulse Rate 76 Respiratory 16 Rate Blood Pressure 102/58 (mmHg) O2 Sat by Pulse 98 Oximetry Oxygen Devices in Use Now: None Appearance: elderly frail main in NAD, resting comfortably flat in bed; R parietal laceration with dressing c/d/i Eyes: No Scleral Icterus Ears/Nose/Mouth/Throat: Clear Oropharnyx - hard of hearing, Mucous Membranes Moist Neck: Trachea Midline - MJ collar in place Respiratory: Symmetrical Chest Expansion and Respiratory Effort, Clear to Auscultation - anteriorly Cardiovascular: - - irreg irreg, no mgr Abdominal: NL Sounds; No Tenderness; No Distention, No Hepatosplenomegaly Extremities: - - ulnar gutter splint on RUE; no edema Skin: No Rash or Ulcers Neurological: - - eyes open to voice, nonverbal, does not follow commands Result Diagrams: 01/23/19 08:10 01/23/19 08:10 Microbiology and Other Data: Microbiology 01/23/19 03:32 Nasal Screen MRSA (PCR) - Final Nasal Mrsa Not Detected Assess/Plan/Problems-Billing Assessment: 84M witih dementia, Afib on Xarelto, presents after fall, found to have acute compression fracture of C7-T2 and R 5th metacarpal fracture. - Patient Problems (1) Cervical spine fracture Comment: C7-T2 anterior fracture with C6 sp fracture. - bed rest, spine precautions, HOB 30 degrees - MJ collar in place - f/u MRI C-spine, appreciate NSGY recs - family likely to pursue palliative care, daughter will discuss with patient's sons and make decision tomorrow - APAP prn mild pain, oxy 5 for mod to severe; bowel regimen prn (2) Metacarpal bone fracture Comment: - appreciate ortho recs - cont immobilization with splint - f/u with ortho 10/14 days after DC (3) Afib Comment: - cont rivaroxaban - consider DC if family decides to pursue palliative measures only, and especially discontinue if pt able to ambulate again, as he is a very high fall risk - cont metoprolol succinate 50mg nightly (4) History of dementia Current Visit: Yes Comment: At baseline the patient can not carry on a conversation and has advance stage dementia. - family interested in palliative care - cont paroxetine 30mg daily (5) DNR (do not resuscitate) Current Visit: No Status: Acute Comment:
[2019-01-23 19:06] LABS: TSH (Thyroid Stimulating Horm) 3.26 mcIU/mL (0.34-5.60)
[2019-01-23] MEDS ORDERED: oxyCODONE TAB* 5 MG TAB PO PRN (19:25)
[2019-01-23] MEDS ORDERED: Acetaminophen TAB* 325 MG PO PRN (19:25)
[2019-01-23] MEDS: Metoprolol Succinate XL TAB* 50 MG PO SCH (21:44)
[2019-01-23] MEDS: Rivaroxaban TAB(*) 15 MG PO SCH (21:44)
[2019-01-24 06:14] LABS: Albumin 3.3 g/dL (3.2-5.2); Albumin/Globulin Ratio 0.9 (1-3); BUN/Creatinine Ratio 22.2 (8-20); Calcium 8.8 mg/dL (8.6-10.3); EGFR Non-African American 80.2 (>60); Globulin 3.8 g/dL (2-4); Total Bilirubin 0.6 mg/dL (0.2-1.0); Total Protein 7.1 g/dL (6.4-8.9)
[2019-01-24] MEDS: Cetirizine* 10 MG TAB PO SCH (08:27)
[2019-01-24] MEDS: PARoxetine HCL TAB* 10 MG PO SCH (08:27)
--- NOTE | 2019-01-24 10:58 | PN ---
Subjective Interval History: no acute events overnight his right forehead laceration has been oozying blood despite q2 hour dressing changes family considering making him palliative care. he is not responsive to loud voice, does grimace to cleaning the forehead lac RN concern that he may not be swallowing his pills well. Objective Active Medications: Acetaminophen (Tylenol Tab*) 975 mg PO Q8H PRN PRN Reason: MILD PAIN or TEMP > 100.4 Albuterol (Ventolin 2.5 Mg/3 Ml Neb.Desiree*) 2.5 mg INH Q6H PRN PRN Reason: SOB/WHEEZING Cetirizine HCl (Zyrtec*) 10 mg PO QAM [facility] Last Admin: 01/24/19 08:27 Dose: 10 mg Magnesium Hydroxide (Milk Of Magnesia Liq*) 30 ml PO Q4H PRN PRN Reason: CONSTIPATION Metoprolol Succinate (Toprol Xl Tab*) 50 mg PO BEDTIME [facility] Last Admin: 01/23/19 21:44 Dose: 50 mg Ondansetron HCl (Zofran Inj*) 4 mg IV Q4H PRN PRN Reason: NAUSEA/VOMITING Oxycodone HCl (Roxycodone Tab*) 5 mg PO Q6H PRN PRN Reason: Pain - Mod to Severe Last Admin: 01/24/19 02:26 Dose: 5 mg Paroxetine HCl (Paxil Tab*) 30 mg PO DAILY [facility] Last Admin: 01/24/19 08:27 Dose: 30 mg Vital Signs - 8 hr 01/24/19 01/24/19 01/24/19 04:08 04:14 04:24 Temperature 98.2 F Pulse Rate 95 94 Respiratory 18 18 16 Rate Blood Pressure 103/67 (mmHg) O2 Sat by Pulse 96 96 Oximetry 01/24/19 01/24/19 07:30 08:00 Temperature Pulse Rate 95 Respiratory 18 18 Rate Blood Pressure 102/66 (mmHg) O2 Sat by Pulse 95 Oximetry Oxygen Devices in Use Now: None Appearance: NAD, eyes closed in bed. laceration with stitches in right forehead oozing blood. Neck: NL Appearance and Movements; NL JVP Respiratory: Symmetrical Chest Expansion and Respiratory Effort, Clear to Auscultation - anteriorly. Cardiovascular: NL Sounds; No Murmurs; No JVD, RRR Abdominal: - - no pain flinches to palpation, soft, nondistended. Extremities: No Edema, - - right hand bandaged, Neurological: - - not responsive to voice but does grimace to head touch near lac Nutrition: Taking PO's Result Diagrams: 01/23/19 08:10 01/24/19 05:26 Additional Lab and Data: Laboratory Results - last 24 hr 01/22/19 01/23/19 01/23/19 11:15 08:10 13:40 Sodium 136 136 Potassium 4.1 4.4 Chloride 104 105 Carbon Dioxide 26 25 Anion Gap 6 6 BUN 21 18 Creatinine 1.05 0.95 Est GFR ( Amer) 81.2 91.2 Est GFR (Non-Af Amer) 67.1 75.3 BUN/Creatinine Ratio 20.0 18.9 Glucose 144 H 93 Calcium 8.8 9.1 Total Bilirubin 0.60 AST 83 H ALT 129 H Alkaline Phosphatase 289 H Total Protein 7.5 Albumin 3.4 Globulin 4.1 H Albumin/Globulin Ratio 0.8 L TSH 3.26 Cancelled Urine Color Yellow Urine Appearance Clear Urine pH 5.0 Ur Specific [place] 1.014 Urine Protein Negative Urine Ketones Negative Urine Blood 1+ A Urine Nitrate Negative Urine Bilirubin Negative Urine Urobilinogen Negative Ur Leukocyte Esterase Negative Urine WBC (Auto) Trace(0-5/hpf) Urine RBC (Auto) 2+(6-10/hpf) A Ur Squamous Epith Cells Present A Urine Bacteria Absent Hyaline Casts Present A Urine Glucose Negative 01/24/19 05:26 Sodium 136 Potassium 4.0 Chloride 104 Carbon Dioxide 25 Anion Gap 7 BUN 20 Creatinine 0.90 Est GFR ( Amer) 97.0 Est GFR (Non-Af Amer) 80.2 BUN/Creatinine Ratio 22.2 H Glucose 101 H Calcium 8.8 Total Bilirubin 0.60 AST 30 ALT 64 H Alkaline Phosphatase 224 H Total Protein 7.1 Albumin 3.3 Globulin 3.8 Albumin/Globulin Ratio 0.9 L TSH Urine Color Urine Appearance Urine pH Ur Specific [place] Urine Protein Urine Ketones Urine Blood Urine Nitrate Urine Bilirubin Urine Urobilinogen Ur Leukocyte Esterase Urine WBC (Auto) Urine RBC (Auto) Ur Squamous Epith Cells Urine Bacteria Hyaline Casts Urine Glucose Microbiology and Other Data: Microbiology 01/23/19 03:32 Nasal Nasal Screen MRSA (PCR) - Final Mrsa Not Detected Assess/Plan/Problems-Billing Assessment: 84M witih severe dementia, Afib on Xarelto, presents after fall, found to have acute compression fracture of C7-T2 and R 5th metacarpal fracture. . Nonoperative management per NS and ortho. Family is considering palliative care - Patient Problems (1) Cervical spine fracture Current Visit: Yes Status: Acute Code(s): S12.9XXA - FRACTURE OF NECK, UNSPECIFIED, INITIAL ENCOUNTER SNOMED Code(s): 736022848 Comment: C7-T2 anterior fracture with C6 sp fracture. - bed rest (clarify with NS when this can be advanced so he can work with PT), spine precautions, HOB 30 degrees - [place] J collar in place - MRI C-spine 01/23: slight loss of anterior height at compression fractures, retrolithesis of c3 on c4 by a couple mm, moderate canal stenosis at c4-c5 - family likely to pursue palliative care, daughter will discuss with patient's sons and make decision soon - APAP prn mild pain, oxy 5 for mod to severe; bowel regimen prn (2) Metacarpal bone fracture Current Visit: Yes Status: Acute Code(s): S62.309A - UNSP FRACTURE OF UNSP METACARPAL BONE, INIT FOR CLOS FX SNOMED Code(s): 826156992 Comment: - appreciate ortho recs - cont immobilization with splint - f/u with ortho 02/02 days after DC (3) Afib Current Visit: Yes Status: Chronic Priority: Low Code(s): I48.91 - UNSPECIFIED ATRIAL FIBRILLATION SNOMED Code(s): 47634840 Comment: - I am going to hold rivaroxaban given continued bleeding from the head laceration and family leaning towards palliative care. he is a very high fall risk - cont metoprolol succinate 50mg nightly (4) History of dementia Current Visit: Yes Status: Chronic Priority: Low Code(s): Z86.59 - PERSONAL HISTORY OF OTHER MENTAL AND BEHAVIORAL DISORDERS SNOMED Code(s): 275835503 Comment: At baseline the patient can not carry on a conversation and has advance stage dementia. - family potentially interested in palliative care , have ordered consult - cont paroxetine 30mg daily (5) DNR (do not resuscitate) Current Visit: No Status: Acute Comment: (6) DVT prophylaxis Current Visit: No Status: Acute Code(s): GKY3525 - SNOMED Code(s): 731813980 Comment: - holding xarelto for now. SCDS in place. hold chemical given oozing head wound. (7) BPH (benign prostatic hypertrophy) Current Visit: No Status: Chronic Priority: Low Code(s): N40.0 - BENIGN PROSTATIC HYPERPLASIA WITHOUT LOWER URINRY TRACT SYMP SNOMED Code(s): 376919234 Comment: - Continue proscar (8) HTN (hypertension) Current Visit: No Status: Chronic Priority: Low Code(s): I10 - ESSENTIAL ( PRIMARY) HYPERTENSION SNOMED Code(s): 84799302 Comment: - SBP 100-110 - Continue metoprolol succinate 50mg qpm with hold parameters. Status and Disposition: medicine inpatient. from [facility], may pursue palliative care.
[2019-01-24] MEDS: Metoprolol Succinate XL TAB* 50 MG PO SCH (22:29)
--- NOTE | 2019-01-25 09:01 | PN ---
Progress Note - Progress Note Date of Service: 01/25/19 Note: Neurosurgery reviewed C spine MRI, the fractures are chronic, there does not appear to be any ligament damage. At this time will recommend discontinuing the [place] J collar.
--- NOTE | 2019-01-25 12:55 | PN ---
Subjective Date of Service: 01/25/19 Interval History: Afebrile, no acute events overnight. Still not eating. Non verbal. head lac oozing still. Met Daughter Monica at bedside. Two other brothers (nonlocal) are coming in tomorrow. Monica is very interested in getting her father to the [facility] facility. Don't want him to go to a [facility]. Luz Marina Heck removed per Neurosurgery recs this AM. Objective Active Medications: Acetaminophen (Tylenol Tab*) 975 mg PO Q8H PRN PRN Reason: MILD PAIN or TEMP > 100.4 Albuterol (Ventolin 2.5 Mg/3 Ml Neb.Desiree*) 2.5 mg INH Q6H PRN PRN Reason: SOB/WHEEZING Cetirizine HCl (Zyrtec*) 10 mg PO QAM [facility] Last Admin: 01/24/19 08:27 Dose: 10 mg Magnesium Hydroxide (Milk Of Magnesia Liq*) 30 ml PO Q4H PRN PRN Reason: CONSTIPATION Metoprolol Succinate (Toprol Xl Tab*) 50 mg PO BEDTIME [facility] Last Admin: 01/24/19 22:29 Dose: 50 mg Ondansetron HCl (Zofran Inj*) 4 mg IV Q4H PRN PRN Reason: NAUSEA/VOMITING Oxycodone HCl (Roxycodone Tab*) 5 mg PO Q6H PRN PRN Reason: Pain - Mod to Severe Last Admin: 01/24/19 02:26 Dose: 5 mg Paroxetine HCl (Paxil Tab*) 30 mg PO DAILY [facility] Last Admin: 01/24/19 08:27 Dose: 30 mg Vital Signs - 8 hr 01/25/19 01/25/19 01/25/19 07:00 07:15 11:00 Temperature 98 F 98 F Pulse Rate 87 98 Respiratory 16 16 16 Rate Blood Pressure 105/62 108/62 (mmHg) O2 Sat by Pulse 94 95 Oximetry Oxygen Devices in Use Now: None Appearance: Chronically ill appearing. Ears/Nose/Mouth/Throat: - - dry mucous membranes. Respiratory: - - anteriorly clear. Occasionaly junky cough. Cardiovascular: NL Sounds; No Murmurs; No JVD Abdominal: NL Sounds; No Tenderness; No Distention, No Hepatosplenomegaly Extremities: No Edema Skin: No Rash or Ulcers Neurological: - - Nonverbal not following commands. BERNSTEIN and scratched chin when [place] J removed) Result Diagrams: 01/23/19 08:10 01/24/19 05:26 Microbiology and Other Data: Microbiology 01/23/19 13:40 Urine Urine Culture - Final No Growth (<1,000 CFU/mL) 01/23/19 03:32 Nasal Nasal Screen MRSA (PCR) - Final Mrsa Not Detected Assess/Plan/Problems-Billing Assessment: 84M with severe dementia with dysphagia, Afib on Xarelto, presents after fall, found to have acute compression fracture of C7-T2 and R 5th metacarpal fracture. . Nonoperative management per NS and ortho. Family is wanting palliative care and hospice admission to [facility]. - Patient Problems (1) Cervical spine fracture Current Visit: Yes Status: Acute Code(s): S12.9XXA - FRACTURE OF NECK, UNSPECIFIED, INITIAL ENCOUNTER SNOMED Code(s): 959585660 Comment: C7-T2 anterior fracture with C6 sp fracture. - will take off bed rest and remove [place] J collar - [place] J collar removed 01/25 mid-day. - MRI C-spine 01/23: slight loss of anterior height at compression fractures, retrolithesis of c3 on c4 by a couple mm, moderate canal stenosis at c4-c5 - family likely to pursue palliative care at [facility] specifically. , - While switch pain control to liquid morphine prn given severe dysphagia (2) Metacarpal bone fracture Current Visit: Yes Status: Acute Code(s): S62.309A - UNSP FRACTURE OF UNSP METACARPAL BONE, INIT FOR CLOS FX SNOMED Code(s): 765623743 Comment: - appreciate ortho recs - cont immobilization with splint - f/u with ortho 10/ days after DC (depending on GOC) (3) Afib Current Visit: Yes Status: Chronic Priority: Low Code(s): I48.91 - UNSPECIFIED ATRIAL FIBRILLATION SNOMED Code(s): 96230323 Comment: - continueing to hold rivaroxaban given continued bleeding from the head laceration and family leaning towards palliative care. he is a very high fall risk - cont metoprolol succinate 50mg nightly (4) History of dementia Current Visit: Yes Status: Chronic Priority: Low Code(s): Z86.59 - PERSONAL HISTORY OF OTHER MENTAL AND BEHAVIORAL DISORDERS SNOMED Code(s): 057547799 Comment: At baseline the patient can not carry on a conversation and has advance stage dementia. - family potentially interested in palliative care , have ordered consult - cont paroxetine 30mg daily - severe dysphagia on puree/pudding thick. feed with known risk of aspiration per GOC. (5) DNR (do not resuscitate) Current Visit: No Status: Acute Comment: (6) DVT prophylaxis Current Visit: No Status: Acute Code(s): TKE8261 - SNOMED Code(s): 690256933 Comment: - holding xarelto for now. SCDS in place. hold chemical given oozing head wound. (7) BPH (benign prostatic hypertrophy) Current Visit: No Status: Chronic Priority: Low Code(s): N40.0 - BENIGN PROSTATIC HYPERPLASIA WITHOUT LOWER URINRY TRACT SYMP SNOMED Code(s): 565427393 Comment: - Continue proscar (8) HTN (hypertension) Current Visit: No Status: Chronic Priority: Low Code(s): I10 - ESSENTIAL ( PRIMARY) HYPERTENSION SNOMED Code(s): 77191516 Comment: - SBP 100-110 - Continue metoprolol succinate 50mg qpm with hold parameters. Status and Disposition: medicine inpatient. from [facility], family wanting to pursue palliative care, [facility]
[2019-01-25] MEDS ORDERED: Morphine ORAL CONCENTRATE* 5 MG/0.25 ML ORAL.SYRIN SL PRN (13:00)
[2019-01-25] MEDS: Cetirizine* 10 MG TAB PO SCH (13:52)
[2019-01-25] MEDS: PARoxetine HCL TAB* 10 MG PO SCH (13:52)
[2019-01-25] MEDS: NS 0.9% 1000 ML** 1,000 ML IV SCH (16:03)
[2019-01-25] MEDS: Metoprolol Succinate XL TAB* 50 MG PO SCH (20:49)
[2019-01-26] MEDS: NS 0.9% 1000 ML** 1,000 ML IV SCH ×2 (04:46→18:21)
[2019-01-26] MEDS: PARoxetine HCL TAB* 10 MG PO SCH ×2 (09:54→18:20)
--- NOTE | 2019-01-26 13:42 | CONSULT ---
Palliative / Hospice Consult Ordering Provider: Rambo Treviño - PCP-[facility] Referal Reason: Interested in hospice/no bowel meds/MS prn pain - Subjective Code Status: DNR Advance Directives Location: In Chart MOLST Part A Completed: Yes - on chart MOLST Part E Completed:: Yes - on chart - History or Present Illness History or Present Illness: 84yo male with severe dementia, resident of [facility] who presents s/p fall. PMH is significant for hypothyroidism, paroxysmal afib, dysphagia, recurrent UTI and hard of hearing. PSHx no etoh, ex tob, retired [employer], Sahra is HCP(not on chart). Studies brain CT neg, C/S spine mild acute compression fx C7, T1 and T2 & C6 spinous process fx non displaced, CXR neg, R hand xray- impacted fx distal metaphysis of 5th metacarpal, lumbar CT -DJD no fx, thorax CT-DJD, no fx and MRI-old fx of C7, T1 & T2, H/H 12.1/36, BUN /Cr 20/.9 egfr 80.2, alb 3.3, Ast 83 now 30, alt 129 now 64 and urine culture is negative. Last ER visit 12/19/18 for fall. Pt admitted for new compression fx and placed in a Jamul collar. All history is from the family and medical records. Lab Values: Laboratory Last Values WBC 8.0 10^3/uL (3.5-10.8) 01/23/19 08:10 RBC 3.52 10^6 /uL (4.18-5.48) L 01/23/19 08:10 Hgb 12.1 g/dL (14.0-18.0) L 01/23/19 08:10 Hct 36 % (42-52) L 01/23/19 08:10 MCV 101 fL (80-94) H 01/23/19 08:10 MCH 35 pg (27-31) H 01/23/19 08:10 MCHC 34 g/dL (31-36) 01/23/19 08:10 RDW 14 % (10-15) 01/23/19 08:10 Plt Count 249 10^3/uL (150-450) 01/23/19 08:10 MPV 7.7 fL (7.4-10.4) 01/23/19 08:10 Neut % (Auto) 73.4 % 01/23/19 08:10 Lymph % (Auto) 12.5 % 01/23/19 08:10 [place] % (Auto) 12.7 % 01/23/19 08:10 Eos % (Auto) 0.8 % 01/23/19 08:10 Baso % (Auto) 0.6 % 01/23/19 08:10 Absolute Neuts (auto) 5.9 10^3/ul (1.5-7.7) 01/23/19 08:10 Absolute Lymphs (auto) 1.0 10^3/ul (1.0-4.8) 01/23/19 08:10 Absolute Monos (auto) 1.0 10^3/ul (0-0.8) H 01/23/19 08:10 Absolute Eos (auto) 0.1 10^3/ul (0-0.6) 01/23/19 08:10 Absolute Basos (auto) 0.0 10^3/ul (0-0.2) 01/23/19 08:10 Absolute Nucleated RBC 0.0 10^3/ul 01/23/19 08:10 Nucleated RBC % 0.1 01/23/19 08:10 Sodium 136 mmol/L (135-145) 01/24/19 05:26 Potassium 4.0 mmol/L (3.5-5.0) 01/24/19 05:26 Chloride 104 mmol/L (101-111) 01/24/19 05:26 Carbon Dioxide 25 mmol/L (22-32) 01/24/19 05:26 Anion Gap 7 mmol/L (2-11) 01/24/19 05:26 BUN 20 mg/dL (6-24) 01/24/19 05:26 Creatinine 0.90 mg/dL (0.67-1.17) 01/24/19 05:26 Est GFR ( Amer) 97.0 (>60) 01/24/19 05:26 Est GFR (Non-Af Amer) 80.2 (>60) 01/24/19 05:26 BUN/Creatinine Ratio 22.2 (8-20) H 01/24/19 05:26 Glucose 101 mg/dL (70-100) H 01/24/19 05:26 Lactic Acid 1.5 mmol/L (0.5-2.0) 01/22/19 11:15 Calcium 8.8 mg/dL (8.6-10.3) 01/24/19 05:26 Total Bilirubin 0.60 mg/dL (0.2-1.0) 01/24/19 05:26 AST 30 U/L (13-39) 01/24/19 05:26 ALT 64 U/L (7-52) H 01/24/19 05:26 Alkaline Phosphatase 224 U/L (34-104) H 01/24/19 05:26 Total Protein 7.1 g/dL (6.4-8.9) 01/24/19 05:26 Albumin 3.3 g/dL (3.2-5.2) 01/24/19 05:26 Globulin 3.8 g/dL (2-4) 01/24/19 05:26 Albumin/Globulin Ratio 0.9 (1-3) L 01/24/19 05:26 TSH Cancelled 01/23/19 08:10 Urine Color Yellow 01/23/19 13:40 Urine Appearance Clear 01/23/19 13:40 Urine pH 5.0 (5-9) 01/23/19 13:40 Ur Specific [place] 1.014 (1.010-1.030) 01/23/19 13:40 Urine Protein Negative (Negative) 01/23/19 13:40 Urine Ketones Negative (Negative) 01/23/19 13:40 Urine Blood 1+ (Negative) A 01/23/19 13:40 Urine Nitrate Negative (Negative) 01/23/19 13:40 Urine Bilirubin Negative (Negative) 01/23/19 13:40 Urine Urobilinogen Negative (Negative) 01/23/19 13:40 Ur Leukocyte Esterase Negative (Negative) 01/23/19 13:40 Urine WBC (Auto) Trace(0-5/hpf) (Absent) 01/23/19 13:40 Urine RBC (Auto) 2+(6-10/hpf) (Absent) A 01/23/19 13:40 Ur Squamous Epith Cells Present (Absent) A 01/23/19 13:40 Urine Bacteria Absent (Absent) 01/23/19 13:40 Hyaline Casts Present (Absent) A 01/23/19 13:40 Urine Glucose Negative (Negative) 01/23/19 13:40 - Objective Active Medications: Acetaminophen (Tylenol Tab*) 975 mg PO Q8H PRN PRN Reason: MILD PAIN or TEMP > 100.4 Albuterol (Ventolin 2.5 Mg/3 Ml Neb.Desiree*) 2.5 mg INH Q6H PRN PRN Reason: SOB/WHEEZING Sodium Chloride (Ns 0.9% 1000 Ml) 1,000 mls @ 75 mls/hr IV PER RATE [facility] Last Admin: 01/26/19 04:46 Dose: 75 mls/hr Magnesium Hydroxide (Milk Of Magnesia Liq*) 30 ml PO Q4H PRN PRN Reason: CONSTIPATION Metoprolol Succinate (Toprol Xl Tab*) 50 mg PO BEDTIME [facility] Last Admin: 01/25/19 20:49 Dose: 50 mg Morphine Sulfate (Morphine Oral Concentrate*) 5 mg SL Q2H PRN PRN Reason: PAIN - MODERATE Ondansetron HCl (Zofran Inj*) 4 mg IV Q4H PRN PRN Reason: NAUSEA/VOMITING Paroxetine HCl (Paxil Tab*) 30 mg PO DAILY [facility] Last Admin: 01/26/19 09:54 Dose: 30 mg Vital Signs: Vital Signs: Temp Pulse Resp BP Pulse Ox 99.9 F 85 18 95/53 98 01/26/19 12:33 01/26/19 12:33 01/26/19 12:33 01/26/19 12:33 01/26/19 12:33 Patient Weight: Weight 70.443 kg Intake and Output: Intake & Output 01/24/19 01/25/19 01/26/19 01/27/19 06:59 06:59 06:59 06:59 Intake Total 200 0 1150 200 Output Total 350 300 500 Balance -150 -300 650 200 Weight 70.216 kg 70.261 kg 70.443 kg Intake: IV Fluids 950 NS (0.9%) 950 Oral 200 0 200 200 Output: Urine 100 200 200 [place] 250 100 300 Other: Estimated Void Small Date of Last Bowel 01/23/19 Movement # Bowel Movements 1 Estimated Stool Amount Medium # Voids 1 ADLs: Meal Record Start: 01/22/19 18: 27 Freq: Status: Active Protocol: Created 01/22/19 18:27 System (Rec: 01/22/19 18:27 System [id number]) Document 01/23/19 10:15 [id number] (Rec: 01/23/19 11:24 [id number] SSU-C11) Document 01/23/19 18:34 [id number] (Rec: 01/23/19 18:34 [id number] SSU-M17) Document 01/24/19 12:30 [id number] (Rec: 01/24/19 12:31 [id number] SSU-C03) Document 01/25/19 17:41 [id number] (Rec: 01/25/19 17:42 [id number] SSU-M18) Document 01/26/19 10:28 [id number] (Rec: 01/26/19 10:28 [id number] TELE-M14) Intake and Output Start: 01/22/19 10: 45 Freq: Status: Complete Protocol: Created 01/22/19 10:45 System (Rec: 01/22/19 10:45 System [id number]) Intake and Output Start: 01/22/19 18: 27 Freq: DAILY@0600,1400,2200 Status: Active Protocol: Created 01/22/19 18:27 System (Rec: 01/22/19 18:27 System [id number]) Document 01/22/19 22:31 [id number] (Rec: 01/22/19 22:32 [id number] SSU-C11) Document 01/23/19 03:47 ] (Rec: 01/23/19 03:47 ] SSU-C19) Document 01/23/19 04:31 [id number] (Rec: 01/23/19 04:32 [id number] SSU-C02) Document 01/23/19 06:00 [id number] (Rec: 01/23/19 06:17 [id number] SSU-C02) Document 01/23/19 13:00 [id number] (Rec: 01/23/19 14:44 [id number] SSU-C11) Document 01/23/19 20:44 [id number] (Rec: 01/23/19 20:45 [id number] SSU-M17) Document 01/23/19 22:41 [id number] (Rec: 01/23/19 22:43 [id number] SSU-M17) Document 01/24/19 05:19 [id number] (Rec: 01/24/19 05:22 [id number] [facility]-M14) Document 01/24/19 14:00 [id number] (Rec: 01/24/19 14:54 [id number] [facility]-C03) Document 01/25/19 01:12 [id number] (Rec: 01/25/19 01:12 [id number] [facility]-M14) Document 01/25/19 05:37 [id number] (Rec: 01/25/19 05:40 [id number] [facility]-M14) Document 01/25/19 14:00 [id number] (Rec: 01/25/19 14:16 [id number] [facility]-C01) Document 01/25/19 22:00 [id number] (Rec: 01/25/19 22:02 [id number] [facility]-M16) Document 01/26/19 06:00 [id number] (Rec: 01/26/19 06:11 [id number] [facility]-M16) Document 01/26/19 10:28 [id number] (Rec: 01/26/19 10:28 [id number] [facility]-4) Eyes: No Scleral Icterus Ears/Nose/Mouth/Throat: - - dry mucous membranes. Neck: NL Appearance and Movements; NL JVP Cardiovascular: NL Sounds; No Murmurs; No JVD Abdominal: NL Sounds; No Tenderness; No Distention, No Hepatosplenomegaly Extremities: No Edema Neurological: - - Nonverbal not following commands. [place] and scratched chin when Jamul J removed) - Assessment Assessment: 84yo male with severe dementia, frequent falls and paroxysmal afib resident of [facility] s/p fall with R hand fracture hospice eligible - Plan Consult Plan (MU): Hospice Plan: Long discussion with family Sahra(HCP) , Ariel eldest son, Precious(middle child) who is the spokes person, visits her dad weekly and her Piero Felder(son) and his Nisha about care going forward. Although is the HCP they make decisions as a group. Family have not been happy with care at [facility] and would like to pursue another option. Pt has had dementia for at least 7yrs, at first he was cared for at home by his and then when his care became too much he went to [facility] since closer nursing homes had no openings. He is incontinent of bladder and bowel, has developed dysphagia 4 months ago(they do not want a PEG), has frequent falls and speaks sporadically. Pt has had poor po intake over the last few days and family was inquiring about hospice on the 4th floor. I explained the hospital doesn't administer hospice in the hospital. We discussed hospice which can be received in the home(not an option), in fci facilities or at the hospice residence. Family is interested in the hospice residence if no beds, they are interested in receiving hospice at either [facility] or [facility] which is much closer to them and they can visit more often. I explained they would have to have the SNF send a referral to hospice. I also gave [facility] as an option but they declined. manager it security and hospitalist have been informed of outcome of the meeting. MOLST was reviewed and this time no changes. If morphine is continued would consider adding senna. Pt is eligible for hospice with the diagnosis of severe dementia, decreased po intake and frequent falls. KPS 40%, PPS 40% - Time On Unit Date of Evaluation: 01/26/19 Hospice Consult Time in: 12:30 Hospice Consult Time Out: 14:00 Hospice Consult Time Total: 90 > 50% of Time Spend In Counseling or Coordinating Care: Yes
--- NOTE | 2019-01-26 14:23 | PN ---
Subjective Date of Service: 01/26/19 Interval History: no acute events opened eyes and ate dinner last night, breakfast and some lunch(then family "surprised" him when they walked and he had some coughing spasms then went to sleep at that time) Tmax 100.0 last night palliative care consulted. 2 sons (Piero, Ariel) and a daughter at bedside. no more oozin from the head laceration. Objective Active Medications: Acetaminophen (Tylenol Tab*) 975 mg PO Q8H PRN PRN Reason: MILD PAIN or TEMP > 100.4 Albuterol (Ventolin 2.5 Mg/3 Ml Neb.Desiree*) 2.5 mg INH Q6H PRN PRN Reason: SOB/WHEEZING Sodium Chloride (Ns 0.9% 1000 Ml) 1,000 mls @ 75 mls/hr IV PER RATE [facility] Last Admin: 01/26/19 04:46 Dose: 75 mls/hr Magnesium Hydroxide (Milk Of Magnesia Liq*) 30 ml PO Q4H PRN PRN Reason: CONSTIPATION Metoprolol Succinate (Toprol Xl Tab*) 50 mg PO BEDTIME [facility] Last Admin: 01/25/19 20:49 Dose: 50 mg Morphine Sulfate (Morphine Oral Concentrate*) 5 mg SL Q2H PRN PRN Reason: PAIN - MODERATE Ondansetron HCl (Zofran Inj*) 4 mg IV Q4H PRN PRN Reason: NAUSEA/VOMITING Paroxetine HCl (Paxil Tab*) 30 mg PO DAILY [facility] Last Admin: 01/26/19 09:54 Dose: 30 mg Vital Signs - 8 hr 01/26/19 01/26/19 01/26/19 07:59 08:00 12:33 Temperature 98.5 F 99.9 F Pulse Rate 92 85 Respiratory 18 18 18 Rate Blood Pressure 96/54 95/53 (mmHg) O2 Sat by Pulse 97 98 Oximetry Oxygen Devices in Use Now: None Appearance: NAD, chronically ill appearing. some muscle wasting. Neck: NL Appearance and Movements; NL JVP Respiratory: Symmetrical Chest Expansion and Respiratory Effort, - Cardiovascular: NL Sounds; No Murmurs; No JVD, RRR, No Edema Extremities: No Edema Skin: No Rash or Ulcers Neurological: - - does not arouse to loud shouts or light sternal rubs. Nutrition: Taking PO's Result Diagrams: 01/23/19 08:10 01/24/19 05:26 Additional Lab and Data: Laboratory Results - last 24 hr 01/22/19 01/23/19 01/23/19 11:15 08:10 13:40 Sodium 136 136 Potassium 4.1 4.4 Chloride 104 105 Carbon Dioxide 26 25 Anion Gap 6 6 BUN 21 18 Creatinine 1.05 0.95 Est GFR ( Amer) 81.2 91.2 Est GFR (Non-Af Amer) 67.1 75.3 BUN/Creatinine Ratio 20.0 18.9 Glucose 144 H 93 Calcium 8.8 9.1 Total Bilirubin 0.60 AST 83 H ALT 129 H Alkaline Phosphatase 289 H Total Protein 7.5 Albumin 3.4 Globulin 4.1 H Albumin/Globulin Ratio 0.8 L TSH 3.26 Cancelled Urine Color Yellow Urine Appearance Clear Urine pH 5.0 Ur Specific [place] 1.014 Urine Protein Negative Urine Ketones Negative Urine Blood 1+ A Urine Nitrate Negative Urine Bilirubin Negative Urine Urobilinogen Negative Ur Leukocyte Esterase Negative Urine WBC (Auto) Trace(0-5/hpf) Urine RBC (Auto) 2+(6-10/hpf) A Ur Squamous Epith Cells Present A Urine Bacteria Absent Hyaline Casts Present A Urine Glucose Negative 01/24/19 05:26 Sodium 136 Potassium 4.0 Chloride 104 Carbon Dioxide 25 Anion Gap 7 BUN 20 Creatinine 0.90 Est GFR ( Amer) 97.0 Est GFR (Non-Af Amer) 80.2 BUN/Creatinine Ratio 22.2 H Glucose 101 H Calcium 8.8 Total Bilirubin 0.60 AST 30 ALT 64 H Alkaline Phosphatase 224 H Total Protein 7.1 Albumin 3.3 Globulin 3.8 Albumin/Globulin Ratio 0.9 L TSH Urine Color Urine Appearance Urine pH Ur Specific [place] Urine Protein Urine Ketones Urine Blood Urine Nitrate Urine Bilirubin Urine Urobilinogen Ur Leukocyte Esterase Urine WBC (Auto) Urine RBC (Auto) Ur Squamous Epith Cells Urine Bacteria Hyaline Casts Urine Glucose Microbiology and Other Data: Microbiology 01/23/19 13:40 Urine Urine Culture - Final No Growth (<1,000 CFU/mL) 01/23/19 03:32 Nasal Nasal Screen MRSA (PCR) - Final Mrsa Not Detected Assess/Plan/Problems-Billing Assessment: 84M with severe dementia with dysphagia, Afib on Xarelto, presents after fall, found to have acute(per CT) vs old (per MRI) compression fracture of C7-T2 and R 5th metacarpal fracture. . Nonoperative management per NS and ortho. Family is wanting palliative care and hospice admission to [facility] facility. - Patient Problems (1) Cervical spine fracture Current Visit: Yes Status: Acute Code(s): S12.9XXA - FRACTURE OF NECK, UNSPECIFIED, INITIAL ENCOUNTER SNOMED Code(s): 906726643 Comment: C7-T2 anterior fracture with C6 sp fracture. - off bed rest. PT ordered. - [place] J collar removed 01/25 mid-day. - MRI C-spine 01/23: slight loss of anterior height at compression fractures, retrolithesis of c3 on c4 by a couple mm, moderate canal stenosis at c4-c5 - family likely to pursue palliative care at [facility] specifically if available. - While switch pain control to liquid morphine prn given severe dysphagia (2) Metacarpal bone fracture Current Visit: Yes Status: Acute Code(s): S62.309A - UNSP FRACTURE OF UNSP METACARPAL BONE, INIT FOR CLOS FX SNOMED Code(s): 274842724 Comment: - appreciate ortho recs - cont immobilization with splint - f/u with ortho 10/ days after DC (depending on GOC) (3) Afib Current Visit: Yes Status: Chronic Priority: Low Code(s): I48.91 - UNSPECIFIED ATRIAL FIBRILLATION SNOMED Code(s): 25467204 Comment: - continueing to hold rivaroxaban given continued bleeding from the head laceration and family leaning towards palliative care. he is a very high fall risk - cont metoprolol succinate 50mg nightly (4) History of dementia Current Visit: Yes Status: Chronic Priority: Low Code(s): Z86.59 - PERSONAL HISTORY OF OTHER MENTAL AND BEHAVIORAL DISORDERS SNOMED Code(s): 877224886 Comment: At baseline the patient can not carry on a conversation and has advance stage dementia. - cont paroxetine 30mg daily - severe dysphagia on puree/pudding thick. feed with known risk of aspiration per GOC. (5) DNR (do not resuscitate) Current Visit: No Status: Acute Comment: (6) DVT prophylaxis Current Visit: No Status: Acute Code(s): ZAB7746 - SNOMED Code(s): 755042899 Comment: - holding xarelto for now. SCDS in place. hold chemical given oozing head wound. (7) BPH (benign prostatic hypertrophy) Current Visit: No Status: Chronic Priority: Low Code(s): N40.0 - BENIGN PROSTATIC HYPERPLASIA WITHOUT LOWER URINRY TRACT SYMP SNOMED Code(s): 175159900 Comment: - Continue proscar (8) HTN (hypertension) Current Visit: No Status: Chronic Priority: Low Code(s): I10 - ESSENTIAL ( PRIMARY) HYPERTENSION SNOMED Code(s): 09855640 Comment: - SBP 95-110 - Continue metoprolol succinate 50mg qpm with hold parameters. Status and Disposition: medicine inpatient. from [facility], family wanting to pursue palliative care, preferably at [facility]
[2019-01-26] MEDS: Metoprolol Succinate XL TAB* 50 MG PO SCH (19:57)
[2019-01-27] MEDS: NS 0.9% 1000 ML** 1,000 ML IV SCH (07:57)
--- NOTE | 2019-01-27 12:01 | PN ---
Subjective Date of Service: 01/27/19 Interval History: Pt is lying in bed , opens eyes to command, not following any other commands, nonverbal Objective Active Medications: Acetaminophen (Tylenol Tab*) 975 mg PO Q8H PRN PRN Reason: MILD PAIN or TEMP > 100.4 Last Admin: 01/26/19 20:07 Dose: 975 mg Albuterol (Ventolin 2.5 Mg/3 Ml Neb.Desiree*) 2.5 mg INH Q6H PRN PRN Reason: SOB/WHEEZING Magnesium Hydroxide (Milk Of Magnesia Liq*) 30 ml PO Q4H PRN PRN Reason: CONSTIPATION Metoprolol Succinate (Toprol Xl Tab*) 50 mg PO BEDTIME [facility] Last Admin: 01/26/19 19:57 Dose: 50 mg Morphine Sulfate (Morphine Oral Concentrate*) 5 mg SL Q2H PRN PRN Reason: PAIN - MODERATE Ondansetron HCl (Zofran Inj*) 4 mg IV Q4H PRN PRN Reason: NAUSEA/VOMITING Paroxetine HCl (Paxil Tab*) 30 mg PO DAILY [facility] Last Admin: 01/26/19 18:20 Dose: 30 mg Vital Signs - 8 hr 01/27/19 01/27/19 01/27/19 04:20 07:53 08:00 Temperature 98.2 F 97.6 F Pulse Rate 100 90 Respiratory 18 16 18 Rate Blood Pressure 106/52 123/70 (mmHg) O2 Sat by Pulse 96 98 Oximetry Oxygen Devices in Use Now: None Appearance: 84 yo M, opens eyes to voice, appears mildly sedated, nonverbal Eyes: No Scleral Icterus, PERRLA Ears/Nose/Mouth/Throat: NL Teeth, Lips, Gums, Mucous Membranes Moist Neck: NL Appearance and Movements; NL JVP Respiratory: Symmetrical Chest Expansion and Respiratory Effort, Clear to Auscultation Cardiovascular: - - irregular Abdominal: NL Sounds; No Tenderness; No Distention, No Hepatosplenomegaly Lymphatic: No Cervical Adenopathy Extremities: No Clubbing, Cyanosis Skin: No Nodules or Sclerosis, - - R eybrow laceration covered with eschar Result Diagrams: 01/23/19 08:10 01/24/19 05:26 Additional Lab and Data: Laboratory Results - last 24 hr 01/22/19 01/23/19 01/23/19 11:15 08:10 13:40 Sodium 136 136 Potassium 4.1 4.4 Chloride 104 105 Carbon Dioxide 26 25 Anion Gap 6 6 BUN 21 18 Creatinine 1.05 0.95 Est GFR ( Amer) 81.2 91.2 Est GFR (Non-Af Amer) 67.1 75.3 BUN/Creatinine Ratio 20.0 18.9 Glucose 144 H 93 Calcium 8.8 9.1 Total Bilirubin 0.60 AST 83 H ALT 129 H Alkaline Phosphatase 289 H Total Protein 7.5 Albumin 3.4 Globulin 4.1 H Albumin/Globulin Ratio 0.8 L TSH 3.26 Cancelled Urine Color Yellow Urine Appearance Clear Urine pH 5.0 Ur Specific [place] 1.014 Urine Protein Negative Urine Ketones Negative Urine Blood 1+ A Urine Nitrate Negative Urine Bilirubin Negative Urine Urobilinogen Negative Ur Leukocyte Esterase Negative Urine WBC (Auto) Trace(0-5/hpf) Urine RBC (Auto) 2+(6-10/hpf) A Ur Squamous Epith Cells Present A Urine Bacteria Absent Hyaline Casts Present A Urine Glucose Negative 01/24/19 05:26 Sodium 136 Potassium 4.0 Chloride 104 Carbon Dioxide 25 Anion Gap 7 BUN 20 Creatinine 0.90 Est GFR ( Amer) 97.0 Est GFR (Non-Af Amer) 80.2 BUN/Creatinine Ratio 22.2 H Glucose 101 H Calcium 8.8 Total Bilirubin 0.60 AST 30 ALT 64 H Alkaline Phosphatase 224 H Total Protein 7.1 Albumin 3.3 Globulin 3.8 Albumin/Globulin Ratio 0.9 L TSH Urine Color Urine Appearance Urine pH Ur Specific [place] Urine Protein Urine Ketones Urine Blood Urine Nitrate Urine Bilirubin Urine Urobilinogen Ur Leukocyte Esterase Urine WBC (Auto) Urine RBC (Auto) Ur Squamous Epith Cells Urine Bacteria Hyaline Casts Urine Glucose Microbiology and Other Data: Microbiology 01/23/19 13:40 Urine Urine Culture - Final No Growth (<1,000 CFU/mL) 01/23/19 03:32 Nasal Nasal Screen MRSA (PCR) - Final Mrsa Not Detected Assess/Plan/Problems-Billing Assessment: 84M with severe dementia with dysphagia, Afib on Xarelto, presents after fall, found to have acute(per CT) vs old (per MRI) compression fracture of C7-T2 and R 5th metacarpal fracture. . Nonoperative management per NS and ortho. [facility] facility. - Patient Problems (1) Cervical spine fracture Comment: C7-T2 anterior fracture with C6 sp fracture. - off bed rest. PT ordered. - [place] J collar removed 01/25 mid-day. - MRI C-spine 01/23: slight loss of anterior height at compression fractures, retrolithesis of c3 on c4 by a couple mm, moderate canal stenosis at c4-c5 - family likely to pursue palliative care at [facility] specifically if available. (2) Metacarpal bone fracture Comment: - appreciate ortho recs - cont immobilization with splint - f/u with ortho 02/02 days after DC (depending on GOC) (3) Afib Comment: -chronic, rate controlled with lopressor (4) History of dementia Comment: At baseline the patient can not carry on a conversation and has advance stage dementia. - cont paroxetine 30mg daily - severe dysphagia on puree/pudding thick. feed with known risk of aspiration per GOC. (5) DVT prophylaxis Comment: - restart Xarelto (6) DNR (do not resuscitate) Comment: Status and Disposition: medicine inpatient. from [facility], family wanting to pursue palliative care, preferably at [facility]
[2019-01-27] MEDS: PARoxetine HCL TAB* 10 MG PO SCH (15:21)
[2019-01-27] MEDS ORDERED: Rivaroxaban TAB(*) 15 MG PO SCH (18:00)
[2019-01-27] MEDS: Metoprolol Succinate XL TAB* 50 MG PO SCH (21:03)
[2019-01-28] MEDS: PARoxetine HCL TAB* 10 MG PO SCH (10:01)
[2019-01-28 12:31] VITALS: BP 118/74
--- NOTE | 2019-01-28 16:15 | DS ---
CC: [facility]; Dr. Sepulveda; GENE Varghese * DISCHARGE SUMMARY: DATE OF ADMISSION: 01/22/19 DATE OF DISCHARGE/TRANSFER: To [facility] is 01/28/19. PRIMARY CARE PROVIDER: Attending at [facility]. DISPOSITION AT DISCHARGE: [facility]. CONDITION AT DISCHARGE: Stable. DISCHARGE DIAGNOSES: 1. Status post fall, right fifth metacarpal fracture. 2. C7, C6 fractures that were discovered after the fall but deemed likely chronic. 3. Compression fractures of the thoracic vertebrae at the level of T1 and T2, likely also chronic. SECONDARY DIAGNOSES: 1. History of chronic atrial fibrillation, on anticoagulation. 2. History of severe dementia. 3. Severe dysphagia. 4. History of recurrent urinary tract infection. 5. Hypothyroidism. MEDICATIONS AT DISCHARGE: 1. Xarelto 15 mg daily. 2. Paxil 30 mg daily. 3. Metoprolol tartrate 25 mg b.i.d. 4. Claritin 10 mg daily. 5. Synthroid 25 mcg daily. 6. Mucinex ER 600 mg b.i.d. p.r.n. cough. 7. Acetaminophen 1000 mg twice a day scheduled. DIAGNOSTIC STUDIES/LAB DATA: Laboratory data and studies performed during the hospital stay include on 01/23/19, white blood cell count of 8.0, hemoglobin 12.1, hematocrit 36, MCV of 101, platelets of 149. On 01/24/19, sodium of 136, potassium 4.0, chloride 104, carbon dioxide 25, BUN 20, creatinine 0.9. Liver function tests were slightly increased with ALT of 64 and alkaline phosphatase of 224. TSH of 3.2 at admission. Cervical spine MRI obtained on 01/23/19, impression: "Old fractures of the C7, T1, and T2 vertebral bodies. Slight loss of anterior height. Retrolisthesis of C3 onto C4 by a couple of millimeters. This is secondary to degenerative changes of the vertebral joints and facet joints. Multilevel degenerative cervical disk disease and facet disease. Central spur at the level of C4-C3 causing moderate narrowing of the central canal with flattening of the cord substance. No alteration of signal intensity within the cord. Combination of this full complex causing a posterior bony ridge of C5-C6, causing moderate central canal stenosis with flattening of the cervical cord. No significant neural foraminal narrowing. Variable degrees of neural foraminal narrowing secondary to degenerative changes of the uncovertebral joints and facet joints as stated above." Chest x-ray on admission, impression: "No acute cardiopulmonary disease." Thoracic spine CT obtained on 01/22/19, impression: "Multilevel degenerative changes of the thoracic and lumbar spine without radiographically apparent acute fracture or dislocation." Lumbar spine CT, impression: "Multilevel degenerative changes of the thoracic and lumbar spine without radiographically apparent acute fracture or dislocation." Brain CT, impression: "No evidence of acute intracranial abnormality." Hand x-ray on 01/22/19, impression: "Probable mildly impacted fracture of the distal metaphysis of the fifth metacarpal on the right with overlying soft tissue swelling." CONSULTATIONS DURING THE HOSPITAL STAY: Included Dr. Sepulveda from Neurosurgery, and Matt Alicea, physician training program assistant, from Orthopedic Surgery. HOSPITALIZATION COURSE: Reilly Mcknight is an 84-year-old male, resident of [facility] with significant dementia, who presented after a fall. The patient was noted to have cervical bone fractures and abnormalities and likely T1 and T2 compression fractures. The patient also was noted to have right hand fracture. Appropriate services were contacted. Orthopedic service placed the patient's right hand in an immobilizer and recommended to continue to immobilize the patient's right hand and to follow up in approximately 2 weeks with orthopedics service. Neurosurgery saw the patient, did an MRI and the conclusion of the consult was that the abnormalities on the C-spine are likely chronic and the patient does not need C- spine collar and he can continue with flexibility of rehabilitation. The patient was also seen by Dr. Pinto from Palliative Care, who noted that the patient likely is a hospice candidate. The patient's family does not wish to go back to [facility], and during this hospital stay, the patient was accepted at [facility] for likely continuation of hospice and hospice referral at discharge. The patient also had a laceration right above the right eye, due to which his Xarelto was held initially but then restarted prior to discharge. It was recommended for the patient to be referred to hospice upon arrival to [facility]. The patient has significant dysphagia, and the patient is to be continued on mechanical ground diet including thick liquids. The patient still aspirates on this modified food but the family is aware of that and they agree to continue to feed the patient. PHYSICAL EXAMINATION: At the time of discharge, blood pressure 118/74, heart rate of 82 and regular, respiratory rate 16, oxygen saturation 100% on room air , temperature 97.9. General: The patient is a very pleasant 84-year-old male who is lying in bed with eyes closed. He answers to his name, but he likes to be called Scotty. He apparently ate breakfast today but he needs to be fed. He follows very simple commands and quickly drifts off to sleep. HEENT: Head with laceration above the right eyebrow approximately 4 cm, covered with eschar. Eyes: Extraocular motions are intact. Pupils are equal and reactive to light and accommodation. Oropharynx clear. Mucosa moist. Neck: Supple. No JVD. No bruits bilaterally. Cardiovascular: Irregularly irregular rhythm. No murmur. Respiratory: Clear to auscultation bilaterally. Abdomen: Soft and nontender. Bowel sounds present in all 4 quadrants. Extremities: There is no edema. Pulses are +2. No clubbing or cyanosis. Neuro evaluation: Speech is clear. Cranial nerves II through XII grossly intact. Motor strength: The patient is very deconditioned with muscular deconditioning, but there are no focal deficits and motor strength is 5/5 bilaterally. On further evaluation, the patient's right hand is wrapped in bandages, in an immobilizer that is supposed to be continued. Please note that the patient is being transferred to [facility] for further stay and likely hospice referral. Please note this is a short summary of the patient's hospital stay. Please refer to further medical records for details. [id number]/[facility] #: [id number] [facility]ITALLaureano
== END 2019-01-28 17:40 | disposition hospice, home (50) | DRG 552 ==
LOC: ED 10:28 → SSU 17:21 → MED 01-27 15:09
PROVIDERS: ADMIT Hospitalist; ATTEND Internal Medicine
PROC: 0HQ0XZZ Repair Scalp Skin, External Approach (ICD-10-PCS; principal; 2019-01-22)
PROC: 0HQFXZZ Repair Right Hand Skin, External Approach (ICD-10-PCS; 2019-01-22)
DX: S12.600A Unspecified displaced fracture of seventh cervical vertebra, initial encounter for closed fracture (principal); S22.029A Unspecified fracture of second thoracic vertebra, initial encounter for closed fracture; I48.20 Chronic atrial fibrillation, unspecified; S22.019A Unspecified fracture of first thoracic vertebra, initial encounter for closed fracture; S12.500A Unspecified displaced fracture of sixth cervical vertebra, initial encounter for closed fracture; S62.396A Other fracture of fifth metacarpal bone, right hand, initial encounter for closed fracture; H91.90 Unspecified hearing loss, unspecified ear; E03.9 Hypothyroidism, unspecified; I10 Essential (primary) hypertension; I48.0 Paroxysmal atrial fibrillation; G30.9 Alzheimer's disease, unspecified; N40.0 Benign prostatic hyperplasia without lower urinary tract symptoms; F02.80 Dementia in other diseases classified elsewhere, unspecified severity, without behavioral disturbance, psychotic disturbance, mood disturbance, and anxiety; R29.6 Repeated falls; Z66 Do not resuscitate; W07.XXXA Fall from chair, initial encounter; M48.02 Spinal stenosis, cervical region; M47.812 Spondylosis without myelopathy or radiculopathy, cervical region; H61.20 Impacted cerumen, unspecified ear; S61.411A Laceration without foreign body of right hand, initial encounter; S01.01XA Laceration without foreign body of scalp, initial encounter; R13.10 Dysphagia, unspecified; Z87.440 Personal history of urinary (tract) infections; Z87.891 Personal history of nicotine dependence; Z91.81 History of falling; Y92.129 Unspecified place in nursing home as the place of occurrence of the external cause; Z79.01 Long term (current) use of anticoagulants
CPT/HCPCS: 36415; 70450; 71045; 72125; 72128; 72131; 72141; 80048; 80053; 81003; 81015; 83605; 84443; 85025; 85027; 87086; 87641; 96374; 96375; 99284; A9270-GY; G8978-GP-CM; G8979-GP-CM; G8980-GP-CM; J2270